=== PATIENT | female | born 1960 | race Caucasian/White ===

== ENCOUNTER → 2018-06-18 08:52 | Outpatient (CLI) | payer OTHER, SELFPAY | PROVIDERS: Family Provider Family Medicine; PCP Family Medicine; Visit Provider Family Medicine | DX: R00.2 Palpitations (principal) | CPT/HCPCS: 93225; 93226 ==

== ENCOUNTER 2018-12-23 14:16 | Outpatient (RCR) | payer OTHER, SELFPAY | END 2018-12-24 23:59 | LOC: NS 14:16 | PROVIDERS: Family Provider Family Medicine; PCP Family Medicine; Visit Provider Specialist | DX: E11.9 Type 2 diabetes mellitus without complications (principal); E66.8 Other obesity; Z68.42 Body mass index [BMI] 45.0-49.9, adult; Z71.3 Dietary counseling and surveillance | CPT/HCPCS: 97802 ==

== ENCOUNTER 2019-01-13 09:36 | Outpatient (RCR) | payer OTHER, SELFPAY ==
[2017-03-11 11:15] VITALS: BMI 40.7
== END 2019-01-24 23:59 ==
LOC: NS 09:36
PROVIDERS: Family Provider Family Medicine; PCP Family Medicine; Visit Provider Specialist
DX: E11.9 Type 2 diabetes mellitus without complications (principal); E66.8 Other obesity; Z68.42 Body mass index [BMI] 45.0-49.9, adult; Z71.3 Dietary counseling and surveillance
CPT/HCPCS: 97803

== ENCOUNTER 2019-02-10 13:55 | Outpatient (RCR) | payer OTHER, SELFPAY ==
[2017-03-11 11:15] VITALS: BMI 40.7
== END 2019-02-23 23:59 ==
LOC: NS 13:55
PROVIDERS: Family Provider Family Medicine; PCP Family Medicine; Visit Provider Specialist
DX: E11.9 Type 2 diabetes mellitus without complications (principal); E66.8 Other obesity; Z68.42 Body mass index [BMI] 45.0-49.9, adult; Z71.3 Dietary counseling and surveillance
CPT/HCPCS: 97803

== ENCOUNTER 2019-03-03 08:59 | Outpatient (RCR) | payer OTHER, SELFPAY ==
[2017-03-11 11:15] VITALS: BMI 40.7
== END 2019-03-26 23:59 ==
LOC: NS 08:59
PROVIDERS: Family Provider Family Medicine; PCP Family Medicine; Visit Provider Specialist
DX: E11.9 Type 2 diabetes mellitus without complications (principal); E66.8 Other obesity; Z68.42 Body mass index [BMI] 45.0-49.9, adult; Z71.3 Dietary counseling and surveillance
CPT/HCPCS: 97803

== ENCOUNTER 2019-04-07 12:32 | Emergency (ER) | payer OTHER, SELFPAY ==
[2019-04-07 12:34] VITALS: BP 161/88; PULSE 86; RESP 20; TEMP 37.1; O2SAT 90; BMI 43.6
--- NOTE | 2019-04-07 12:48 | EKG12_ITS ---
Test Reason : POST ARREST/CP Blood Pressure : / mmHG Vent. Rate : 083 BPM Atrial Rate : 083 BPM P-R Int : 146 ms QRS Dur : 096 ms QT Int : 426 ms P-R-T Axes : 053 016 064 degrees QTc Int : 500 ms Normal sinus rhythm Septal infarct , age undetermined Prolonged QT Abnormal ECG Confirmed by PILY MACHADO, SULEMAN ([id number]), scientific editor JEAN PAUL PALENCIA ([id number]) on 04/09/2019 9:01:00 AM Referred By: MARCIA/CECY Confirmed By:SULEMAN NASCIMENTO MD
--- NOTE | 2019-04-07 12:53 | ED.DCSUM_ITS ---
History of Present Illness Chief Complaint: Chest Pain Detail of Chief Complaint: Patient chief complaint is syncope not chest pain Informant: Patient Onset: Today Context: Sudden Onset Timing: Intermittent Quality: Patient got in line at the bank and passed out Location: [facility] Current Severity: Chest pain after compressions Maximum Severity: Chest soreness after compressions Worsened by: Chest compressions Relieved by: Nothing Associated Symptoms: Syncopal episode Narrative: Patient is a 4-year-old woman who had a syncopal episode in 2013 after coughing vigorously. She states she went to the bank. She was deciding whether to go to a cubicle or getting line. She went in line. She remembers things getting black becoming lightheaded and grabbing for a pole to prevent her from falling. Bystanders started CPR. Patient had spontaneous return of breathing and circulation. Her only present complaint is chest soreness. She denies shortness of breath, cough, fever or chills. She denies leg pain, swelling or or discoloration. She denies history of PE or DVT and has no risk factors. Prior similar symptoms: Yes - 2013 Recent Illness/Hospitalization: No Past Medical History - Allergies and Home Meds Allergies/Adverse Reactions: Allergies tetracycline Allergy (Verified 04/07/19 12:39) HEADACHE Iodinated Contrast- Oral and IV Dye [Iodinated Contrast Media - IV Dye] Adverse Reaction (Verified 04/07/19 12:39) Shortness of breath latex Adverse Reaction (Verified 04/07/19 12:39) Rash POWDER FROM THE GLOVES IS THE PROBLEM Primary Care Physician: Ervin Brush MD [Primary Care Provider] - Prior records reviewed: Yes Past Medical History: - - COPD and hypertension Surgical History: noncontributory Lives: Alone Smoking Status: Former smoker Alcohol: None Review of Systems General: Denies: Chills, Fever, Subjective, Sweats Eyes: Denies: Visual changes - bilaterally, Blurred Vision - bilaterally, Diplopia ENT: Denies: Bilateral ear pain, Rhinorrhea, Sore throat Cardiovascular: Reports: Chest pain - After CPR. Denies: Palpitations, Heart racing Respiratory: Denies: Dyspnea, Cough, Dyspnea on exertion, Orthopnea, Paroxysmal nocturnal dyspnea Gastrointestinal: Denies: Abdominal pain, Nausea, Vomiting, Diarrhea, Melena, Hematochezia Genitourinary: Denies: Dysuria, Hematuria, Frequency Musculoskeletal: Denies: Back pain, Extremity Pain Skin: Denies: Rash, Wounds Neurological: Denies: Headache, Weakness, Numbness Hematologic: Denies: Easy bruising, Easy bleeding Allergy: Denies: Uticaria, Swelling of the mouth Physical Exam Vital Signs/Narrative: Vital Signs Temp Pulse Resp BP Pulse Ox 04/07/19 12:34 98.8 F 86 20 H 161/88 H 90 Inital Vital Signs reviewed: Yes General: Well nourished, Well developed, No Acute Distress Head: Normocephalic, Atraumatic Eyes: Perrl, EOMI. Negative for: Pale conjunctiva, Scleral icterus ENT: Moist mucous membranes, No rhinorrhea, TM's clear Neck: Supple, Nontender, No lymphadenopathy Cardiovascular: Regular rate, Regular rhythm, No murmurs, Normal S1, Normal S2 Respiratory: No distress, CTA bilaterally, Chest nontender Abdomen: Soft, Nontender, Nondistended, Normal bowel sounds Back: Nontender, Normal Inspection Extremities: Nontender, No edema Skin: Normal color, No rash Neurological: Alert, Oriented x3, Cranial nerves II-XII grossly intact, Normal Strength, Normal Sensation Psychological: Normal affect, Normal Mood Diagnostic/Tx/Re-eval Laboratory Results 04/07/19 04/07/19 12:46 12:46 WBC 8.1 RBC 4.91 Hgb 13.4 Hct 41.7 MCV 84.9 MCH 27.3 MCHC 32.1 RDW 14.4 RDW Differential 44.0 H Plt Count 293 MPV 9.4 Sodium 138 Potassium 3.7 Chloride 104 Carbon Dioxide 30.0 Anion Gap 4 L BUN 24 H Creatinine 0.65 Estim Creat Clear Calc 82.82 Est GFR (MDRD) Af Amer 119 Est GFR (MDRD) Non-Af 99 BUN/Creatinine Ratio 36.9 H Glucose 105 Calcium 8.7 Troponin I < 0.015 - Rhythm Strip Rhythm Strip: Sinus Rhythm Rate: 77 Ectopy: None - EKG Initial EKG Interpretation: Sinus Rhythm - Ventricular rate is 83. Decreased anterior force. OH interval 146 ms. QRS durations 96 ms and is unremarkable. Acute T interval is prolonged. - Medical Decision Making Patient's history is suggestive of vasovagal syncopal episode. EKG was obtained and reveals a sinus rhythm ventricular rate of 83 with decreased anterior force. QT interval is prolonged. Suspect chest pain is secondary to CPR. In light of patient's history, physical findings and prior history she experienced a vasovagal syncopal episode. Will discharge to home. ED Disposition - Plan for ED Patient: Disposition: Home or Assisted Living Diagnosis: Vasovagal syncope Instructions: ED Syncope Vasovagal Referrals: Ervin Brush MD [Primary Care Provider] - As Needed
[2019-04-07 12:56] LABS: Hematocrit 41.7 % (37-47); Hemoglobin 13.4 g/dl (12.0-15.0); Mean Corp Hgb Conc 32.1 g/gl (32-36); Mean Corpuscular Hgb 27.3 pg (27.0-32.0); Mean Corpuscular Volume 84.9 fL (81-99); Mean Platelet Vol. 9.4 fl (6.2-12.0); Platelet Count 293 K/mm3 (150-450); RBC Distribution Width CV 14.4 % (11.6-14.6); Red Blood Count 4.91 M/mm3 (4.2-5.4); White Blood Count 8.1 K/mm3 (4.4-11.0)
[2019-04-07 12:57] LABS: Scan Indicated on CBC? Y/N NO
[2019-04-07 13:09] LABS: Anion Gap 4 (5-15); BUN 24 mg/dL (7-18); BUN/Creat Ratio 36.9 RATIO (10-20); Calcium,Total 8.7 mg/dL (8.5-10.1); Chloride 104 mmol/L (98-107); Creatinine, Serum 0.65 mg/dL (0.55-1.02); EST Glomerular Filtration Rate 99 mL/min (>60); Est Glom Filt Rate - Afr Amer 119 mL/min (>60); Estimated Creatinine Clearance 82.82 ml/min; Glucose 105 mg/dL (74-106); Potassium 3.7 mmol/L (3.5-5.1); Sodium Level 138 mmol/L (136-145)
[2019-04-07 14:32] VITALS: BP 138/63; PULSE 88; RESP 18; O2SAT 95
[2019-04-07 15:17] VITALS: BP 135/74; PULSE 82; RESP 14; O2SAT 94
[2019-04-07] MEDS: HYDROcodone Bitartrate/Apap 5/325 Tablet PO (16:43)
[2019-04-07 16:49] VITALS: BP 149/70; PULSE 68; RESP 18; O2SAT 99
== END 2019-04-07 16:50 | disposition home or self-care (01) ==
PROVIDERS: Emergency Provider Emergency Medicine; Family Provider Family Medicine; PCP Family Medicine
DX: R55 Syncope and collapse (principal); I10 Essential (primary) hypertension; J44.9 Chronic obstructive pulmonary disease, unspecified; Z79.899 Other long term (current) drug therapy; Z87.891 Personal history of nicotine dependence
CPT/HCPCS: 36415; 80048; 84484; 85027; 93005; 99285; J7030; A4216

== ENCOUNTER 2019-05-03 11:12 | Outpatient (RCR) | payer OTHER, SELFPAY ==
[2017-03-11 11:15] VITALS: BMI 40.7
[2019-05-03 09:26] VITALS: BMI 40.7
== END 2019-05-26 23:59 ==
LOC: NS 11:12
PROVIDERS: Family Provider Family Medicine; PCP Family Medicine; Visit Provider Specialist
DX: E11.9 Type 2 diabetes mellitus without complications (principal); E66.8 Other obesity; Z68.42 Body mass index [BMI] 45.0-49.9, adult; Z71.3 Dietary counseling and surveillance
CPT/HCPCS: 97803

== ENCOUNTER → 2019-05-03 | Outpatient (CLI) | payer OTHER, SELFPAY ==
[2019-05-03 09:26] VITALS: BMI 40.7
[2019-05-03 11:12] LABS: Absolute Lymphocyte Count 1.54 X10^3/ul (0.83-4.51); Absolute Neutrophil Count 3.9 X10^3/uL (2.0-7.7); Basophil# 0.03 X10^3/uL; Basophil% 0.5 % (0-1); Eosinophil# 0.23 X10^3/uL; Eosinophils% 3.8 % (0-5); Hematocrit 40.3 % (37-47); Hemoglobin 12.7 g/dl (12.0-15.0); Lymphocyte # 1.54 X10^3/ul (4.0); Lymphocyte % 25.4 % (19-41); Mean Corp Hgb Conc 31.5 g/gl (32-36); Mean Corpuscular Hgb 27.3 pg (27.0-32.0); Mean Corpuscular Volume 86.7 fL (81-99); Mean Platelet Vol. 9.1 fl (6.2-12.0); Monocyte# 0.38 X10^3/uL; Monocyte% 6.3 % (0-10); Neutrophil # 3.87 X10^3/uL (2.7-7.7); Neutrophil % 63.8 % (47-70); Platelet Count 209 K/mm3 (150-450); RBC Distribution Width CV 14.4 % (11.6-14.6); RBC Distribution Width SD 44.9 fl (35.1-43.9); Red Blood Count 4.65 M/mm3 (4.2-5.4); White Blood Count 6.1 K/mm3 (4.4-11.0)
[2019-05-03 11:13] LABS: POSITIVE COUNT NO; POSITIVE DIFFERENTIAL NO; POSITIVE MORPHOLOGY NO
[2019-05-05 12:08] LABS: Alternaria tenuis <0.10 kU/L (Class 0); Ash, White 0.12 kU/L (Class 0/I); Aspergillus fumigatus <0.10 kU/L (Class 0); Bermuda Grass 0.12 kU/L (Class 0/I); Birch <0.10 kU/L (Class 0); Black Walnut 0.13 kU/L (Class 0/I); Cat Hair / Dander,Stand <0.10 kU/L (Class 0); Cedar, Mountain <0.10 kU/L (Class 0); Cladosporium herbarum <0.10 kU/L (Class 0); Cottonwood 0.13 kU/L (Class 0/I); D farinae Mite <0.10 kU/L (Class 0); D pteronyssinus <0.10 kU/L (Class 0); Dog Epithelia <0.10 kU/L (Class 0); Elm, American White 0.14 kU/L (Class 0/I); Immunoglobulin E 52 IU/mL (6-495); Maple/Box Elder 0.12 kU/L (Class 0/I); Mulberry, White <0.10 kU/L (Class 0); Oak, White 0.12 kU/L (Class 0/I); Pecan <0.10 kU/L (Class 0); Penicillium Notatum <0.10 kU/L (Class 0); Pigweed, Rough 0.11 kU/L (Class 0/I); Ragweed, Short/Common 0.15 kU/L (Class 0/I); Russian Thistle 0.12 kU/L (Class 0/I); Sheep Sorrel 0.13 kU/L (Class 0/I); Sycamore, American 0.13 kU/L (Class 0/I); Timothy Grass 0.12 kU/L (Class 0/I)
[2019-05-05 16:56] LABS: Mouse Urine <0.10 kU/L (Class 0)
[2019-05-07 04:26] LABS: Aspirgillus flavus Negative (Neg:<1:1); Aspirgillus fumigatus Negative (Neg:<1:1); Aspirgillus niger Negative (Neg:<1:1)
[2019-05-10 12:51] LABS: Immunoglobulin E 53 IU/mL (6-495)
== END | disposition home or self-care (01) ==
LOC: PAVLAB 10:36
PROVIDERS: Family Provider Family Medicine; PCP Family Medicine; Referring Provider Internal Medicine Critical Care Medicine; Visit Provider Internal Medicine Critical Care Medicine
DX: R06.02 Shortness of breath (principal)
CPT/HCPCS: 36415; 82785; 85025; 86003; 86606

== ENCOUNTER → 2019-05-07 | Outpatient (CLI) | payer OTHER, SELFPAY ==
[2019-04-20 15:03] VITALS: BMI 39.6
[2019-05-03 09:26] VITALS: BMI 40.7
--- NOTE | 2019-05-07 13:51 | ECHOCS_ITS ---
Reason For Study: Dyspnea/SOB Procedure This was a 2D Doppler, Color Flow transthoracic echocardiogram. The study was technically difficult. Contrast injection was performed. Exam performed in department. Left Ventricle Moderate concentric left ventricular hypertrophy. Mildly dilated left ventricle. The estimated ejection fraction is 65 %. Stage 1 diastolic dysfunction. No regional wall motion abnormalities noted. Right Ventricle Normal size and thickness. Normal systolic function. Atria The left atrium is moderately enlarged. Normal right atrium. Normal atrial septum. Mitral Valve The mitral valve is structurally normal. No prolapse or stenosis seen. Mild (1+) mitral valve insufficiency. Tricuspid Valve Normal tricuspid valve. Unable to estimate RV systolic pressure due to insufficient tricuspid regurgitant envelope. Aortic Valve Trisinus/trileaflet aortic valve. Normal aortic valve. Pulmonic Valve Normal pulmonic valve. Great Vessels Normal aortic root. Normal arch. Normal inferior vena cava. Inferior vena cava collapse with sniff. Pericardium/Pleural No pericardial effusion. Medication 22 gauge I.V. with prn adaptor inserted into right arm. Diluted definity 4ml given slow IV push to enhance endocardial definition. Performed a rapid injection of agitated mix of 9 cc saline and 1cc air to assess for atrial septal defect. MMode/2D Measurements & Calculations LVIDd: 5.3 cm IVSd: 1.8 cm LAV(MOD-bp): 86.9 ml LVIDs: 3.8 cm LVPWd: 1.7 cm FS: 27.7 % LAV(MOD-bp) Indexed: 38.5 ml/m2 LAV(MOD-sp2): 71.1 ml LAV(MOD-sp4): 92.2 ml LA A4 area: 25.2 cm2 RA A4 area: 15.0 cm2 Time Measurements MV dec time: 0.20 sec Doppler Measurements & Calculations MV E max jose elias: 105.6 cm/sec Lat Peak E' Jose Elias: 5.0 cm/sec Med Peak E' Jose Elias: 6.3 cm/sec MV A max jose elias: 117.5 cm/sec E/E' lat: 21.2 E/E' med: 16.7 MV E/A: 0.90 MV V2 max: 121.3 cm/sec MV P1/2t max jose elias: 109.8 cm/sec Ao V2 max: 135.1 cm/sec MV max P.9 mmHg MV P1/2t: 101.6 msec Ao max P.3 mmHg MV V2 mean: 70.0 cm/sec Ao V2 mean: 90.0 cm/sec MV mean P.3 mmHg MV dec slope: 316.6 cm/sec2 Ao mean P.8 mmHg MV V2 VTI: 33.3 cm MVA(P1/2t): 2.2 cm2 Ao V2 VTI: 30.6 cm LV V1 max: 81.3 cm/sec PA V2 max: 100.2 cm/sec LV V1 max P.6 mmHg LV V1 mean P.2 mmHg LV V1 mean: 50.8 cm/sec LV V1 VTI: 18.5 cm Interpretation Summary Moderate concentric left ventricular hypertrophy. The estimated ejection fraction is 65 %. Stage 1 diastolic dysfunction. Mildly dilated left ventricle. The left atrium is moderately enlarged. Mild (1+) mitral valve insufficiency. Unable to estimate RV systolic pressure due to insufficient tricuspid regurgitant envelope. The study was technically difficult. There is no comparison study available. Contrast injection was performed. Ordering Physician: Shahram Garza Referring Physician: Shahram Garza Performed By: Josue Chamberlain RCS
== END | disposition home or self-care (01) ==
LOC: CVS 13:50
PROVIDERS: Family Provider Family Medicine; PCP Family Medicine; Referring Provider Internal Medicine Cardiovascular Disease; Visit Provider Internal Medicine Cardiovascular Disease
DX: R55 Syncope and collapse (principal); R94.31 Abnormal electrocardiogram [ECG] [EKG]; I49.3 Ventricular premature depolarization; I10 Essential (primary) hypertension; J45.40 Moderate persistent asthma, uncomplicated
CPT/HCPCS: 93306; Q9957; A4216; C8929

== ENCOUNTER → 2019-05-08 | Outpatient (CLI) | payer OTHER, SELFPAY ==
[2019-05-03 09:26] VITALS: BMI 40.7
[2019-05-08 11:23] LABS: AST(SGOT) 19 U/L (15-37); Alanine Aminotransfer ALT/SGPT 24 U/L (13-56); Albumin, Serum 3.6 g/dL (3.2-5.0); Alkaline Phosphatase 94 U/L (45-117); Cholesterol 197 mg/dL (200); Globulin 4.1 g/dL (2.2-4.2); High Density Lipoprotein 42 mg/dL; Protein, Total 7.7 g/dL (6.4-8.2); Triglycerides 90 mg/dL; Very Low Density Lipoprotein 18 mg/dL (5-40)
== END | disposition home or self-care (01) ==
LOC: LAB 10:11
PROVIDERS: Family Provider Family Medicine; PCP Family Medicine; Referring Provider Internal Medicine Cardiovascular Disease; Visit Provider Internal Medicine Cardiovascular Disease
DX: R55 Syncope and collapse (principal); R94.31 Abnormal electrocardiogram [ECG] [EKG]; I49.3 Ventricular premature depolarization; E78.5 Hyperlipidemia, unspecified; R73.03 Prediabetes
CPT/HCPCS: 36415; 80061; 80076

== ENCOUNTER → 2019-05-14 | Outpatient (CLI) | payer OTHER, SELFPAY ==
[2019-05-03 09:26] VITALS: BMI 40.7
--- NOTE | 2019-05-14 11:19 | PFTCOMP_ITS ---
COMPLETE PULMONARY FUNCTION TEST INTERPRETATION Brief HPI: Patient is a 58 year old female, currently under the care of Dr. Gant, who presents to [facility] for complete pulmonary function tests secondary to diagnosis of dyspnea. Respiratory therapist reports good effort and reproducible results. Interpretation: Forced expiration spirometry shows a severe large airways obstructive ventilatory defect with an FEV1 of 37% predicted. There is a significant bronchodilator response in FVC and FEV1 by strict ATS criteria. Spirograms are of good quality and plateau slowly, indicating slowly emptying areas of the lungs. The respiratory flow volume loop shows decreased expiratory flow rates at all lung volumes consistent with airway obstruction. Lung volumes by body plethysmography show a normal total lung capacity at 4.99 L, 91% predicted. FRC and RV are elevated out of proportion. Lung volume measurements are consistent with air-trapping. Diffusion capacity by carbon monoxide is decreased at 56% predicted. The airway resistance is elevated. No previous pulmonary function tests were available for review. Impression: Partially reversible very severe large airways obstructive ventilatory defect with symmetric reduction in diffusing capacity, resulting in air trapping and consistent with a diagnosis of asthma/COPD overlap syndrome
== END | disposition home or self-care (01) ==
LOC: PSN 06:59
PROVIDERS: Family Provider Family Medicine; PCP Family Medicine; Referring Provider Internal Medicine Critical Care Medicine; Visit Provider Internal Medicine Critical Care Medicine
DX: R06.02 Shortness of breath (principal)
CPT/HCPCS: 94060; 94726; 94729

== ENCOUNTER → 2019-05-17 | Outpatient (CLI) | payer OTHER, SELFPAY ==
[2019-04-20 15:03] VITALS: BMI 39.6
[2019-05-03 09:26] VITALS: BMI 40.7
--- NOTE | 2019-05-17 09:31 | STEWCON_ITS ---
Reason For Study: Dyspnea Stress Results Protocol: Modified Gerard Protocol Maximum Predicted HR: 160 bpm Target HR: 136 bpm % Maximum Predicted HR: 81 % Heart Stage Duration Rate BP Comment (mm:ss) (bpm) Baseline 84 130/72No Chest Pain; 3 ML Definity Given Modified Gerard Protocol Stage 0 3:00 118 146/70No Chest Pain; Mild Dyspnea Modified Gerard Protocol No Chest Pain; Moderate Dyspnea; Soft Stage 1/2 3:00 126 168/64Expiratory Wheezes Modified Gerard Protocol No Chest Pain; Moderate Dyspnea; Expiratory Stage 1 1:01 130 / Wheezes Recovery 92 122/76No Chest Pain; No Wheezes Stress Duration: 7:01 mm:ss Maximum Stress HR: 130 bpm METS: 4 Baseline Echocardiogram Findings The estimated ejection fraction is 65 %. Stress Echo Wall motion Data Resting WM Intermediate WM Stress WM Resting Wall Motion Wall Motion Stress No regional wall motion Mid-Anterior : Severely abnormalities noted. Hypokinetic. Mid-Lateral : Severely Hypokinetic. EKG Data The baseline ECG displays normal sinus rhythm. During stress, there were no ST or T wave changes noted to suggest ischemia. No clinical angina was noted. The maximum heart rate attained was 133 beats per minute. This was 83% of maximum predicted heart rate. Interpretation Summary The estimated ejection fraction is 65 %. Mid-Anterior : Severely Hypokinetic. Mid-Lateral : Severely Hypokinetic. Abnormal, adequate, treadmill echocardiogram. Positive for ischemia by echocardiographic criteria. No anginal symptoms noted however the patient did have dyspnea and expiratory wheezes which may be an anginal equivalent. Patient appeared to develop mid anterior and lateral hypokinesis at peak exercise. Appropriate blood pressure response to exercise. Below average exercise capacity for age. Final LVEF of 45%. Frequent PVCs and ventricular couplets during exercise and into recovery. Test terminated due to dyspnea and wheezing. Poor echo windows requiring Definity agent may affect the results of the imaging. No complications. The study was technically difficult. Contrast injection was performed. Ordering Physician: Shahram Garza Referring Physician: Mark Brush Performed By: Tamiko Bruno, ANKITA, RVT
[2019-05-17 13:37] VITALS: PULSE 100; PULSE 104; PULSE 109; PULSE 114; PULSE 93; PULSE 97; O2SAT 90; O2SAT 91; O2SAT 92; O2SAT 94
--- NOTE | 2019-05-17 14:56 | PCM.PSN.6M ---
PSN 6 Minute Walk Test - 6 Minute Walk Test 6 Minute Walk Test: 6 Minute Walk Test PSN:6-Minute Walk Test Start: 05/17/19 13:37 Freq: Status: Active Protocol: RESP.6MINW Document 05/17/19 13:37 EVIE (Rec: 05/17/19 13:40 EVIE [id number]) 6 Minute Walk Test Date Performed 05/17/19 Time Performed 12:00 Height 5 ft 7 in Weight: 120.202 kg Weight in Pounds 265.[address]: Shahram Garza Assistive device used: None Pre-test Oxygen Delivery Method Room Air Pulse Ox (%) 92 Pulse Rate (60-100 beats/min) 97 Dyspnea Tisha Scale (0-10) 0 Exertion Tisha Scale (6-20) 6 1st minute Oxygen Delivery Method Room Air Pulse Ox (%) 91 Pulse Rate (60-100 beats/min) 100 2nd minute Oxygen Delivery Method Room Air Pulse Ox (%) 91 Pulse Rate (60-100 beats/min) 104 H 3rd minute Oxygen Delivery Method Room Air Pulse Ox (%) 91 Pulse Rate (60-100 beats/min) 109 H Number of Rests Taken 1 4th minute Oxygen Delivery Method Room Air Pulse Ox (%) 92 Pulse Rate (60-100 beats/min) 114 H 5th minute Oxygen Delivery Method Room Air Pulse Ox (%) 91 Pulse Rate (60-100 beats/min) 109 H 6th minute Oxygen Delivery Method Room Air Pulse Ox (%) 90 Pulse Rate (60-100 beats/min) 114 H Dyspnea Tisha Scale (0-10) 3 Exertion Tisha Scale (6-20) 14 Post-test Oxygen Delivery Method Room Air Pulse Ox (%) 94 Pulse Rate (60-100 beats/min) 93 Full Laps Walked 12 Partial Lap, Number of Tiles Walked 10 Total Distance Walked (ft) 718 - Interpretation Interpretation: The patient was able to ambulate 718 feet over the course of 6 minutes on room air with one break. The patient did have a low baseline saturation of 92%, but oxygen rehana was noted at 90%. Patient did have significant tachycardia with a peak heart rate of 114 bpm during testing. These findings are consistent with a cardiopulmonary etiology for exercise limitation. - Recommendations Recommendations: No supplemental oxygen is indicated at this time. However, patient will need to be followed closely given level of desaturation.
== END | disposition home or self-care (01) ==
LOC: CVS 09:30
PROVIDERS: Family Provider Family Medicine; PCP Family Medicine; Referring Provider Internal Medicine Cardiovascular Disease; Visit Provider Internal Medicine Cardiovascular Disease
DX: R55 Syncope and collapse (principal); R94.31 Abnormal electrocardiogram [ECG] [EKG]; I49.3 Ventricular premature depolarization; I10 Essential (primary) hypertension
CPT/HCPCS: 93017; 93350; 94618; Q9957; A4216; C8928

== ENCOUNTER 2019-05-21 06:49 | Day surgery (SDC) | payer OTHER, SELFPAY ==
[2019-05-18 09:31] VITALS: BMI 40.7
--- NOTE | 2019-05-18 09:37 | RAD_ITS ---
STUDY: X-RAY CHEST REASON FOR EXAM: Female, 58 years old. Worsening shortness of breath TECHNIQUE: PA and lateral views of the chest. COMPARISON: 2015 FINDINGS: Lungs are expanded. Chronic interstitial changes again noted in both lung tatum. Stable right perihilar opacification. There is no demonstrated pleural abnormality. Normal size heart. Normal mediastinum and lamin. Normal visualized pulmonary arteries. Normal visualized aortic arch and descending thoracic aorta. There are diffuse degenerative changes of the visualized thoracic spine. Normal visualized ribs, clavicles, and shoulders. There is no demonstrated abnormality of the visualized soft tissue structures of the upper abdomen. RAD/Chest PA and Lateral IMPRESSION: Degenerative changes, as described above. No demonstrated acute cardiopulmonary process. No significant interval change Electronically Signed: Jone Canseco MD at 10:58 EDT , Service support ,
[2019-05-18 10:40] LABS: Hematocrit 41.1 % (37-47); Mean Corp Hgb Conc 31.6 g/dL (32-36); Mean Corpuscular Hgb 27.6 pg (27.0-32.0); Mean Corpuscular Volume 87.3 fL (81-99); Mean Platelet Vol. 9.5 fl (6.2-12.0); Platelet Count 251 K/mm3 (150-450); RBC Distribution Width CV 13.3 % (11.6-14.6); RBC Distribution Width SD 42.7 fl (35.1-43.9); Red Blood Count 4.71 M/mm3 (4.2-5.4); White Blood Count 6.6 K/mm3 (4.4-11.0)
[2019-05-18 10:52] LABS: Prothrombin Time (Protime)PT. 12.8 SECONDS (11.7-14.9)
[2019-05-18 10:53] LABS: Partial Thromboplast Time 27.4 Seconds (24.1-36.2)
[2019-05-18 10:59] LABS: Anion Gap 2 (5-15); BUN 19 mg/dL (7-18); BUN/Creat Ratio 28.4 RATIO (10-20); Calcium,Total 8.7 mg/dL (8.5-10.1); Chloride 102 mmol/L (98-107); Creatinine, Serum 0.67 mg/dL (0.55-1.02); EST Glomerular Filtration Rate 95 mL/min (>60); Est Glom Filt Rate - Afr Amer 115 mL/min (>60); Glucose 96 mg/dL (74-106); Potassium 3.5 mmol/L (3.5-5.1); Sodium Level 140 mmol/L (136-145)
[2019-05-21 07:33] VITALS: BMI 41.4
--- NOTE | 2019-05-21 09:35 | CL.D_ITS ---
Patient Name: MATTHEW LOZADA Study Date: 05/21/2019 Performing: Shahram Garza MD Ht: 66.92 inches 170 cm : 1960 Wt: 264.55 lbs 120 kg Age: 58 Gender: female BSA: 2.28 PROCEDURE(S) PERFORMED UV92-NRI/LHC/COR/LV CLINICAL PROFILE AND INDICATIONS Indications: Suspected CAD, LV Dysfunction Heart Failure: NYHA Class: 1, Newly Diagnosed: Yes, Heart Failure Type: Systolic Stress/Imaging Date: 05/17/2019Stress Echocardiogram: Positive Low Risk Angina Classification Anginal Classification w/in 2 Weeks: No symptoms CAD Presentations: Other: Dyspnea on exertion Comorbidities/Risk Factors: Hypertension Dyslipidemia Diabetes Mellitus: Diabetes Therapy: Oral CONCLUSIONS Global LV systolic dysfunction- Mild LVEF: by LV gram 50 % Non obstructive coronary arteries RECOMMENDATIONS Risk factor modification Management as per referring Pepper Picker D/c plavix, start coreg 3.125mg po bid. Manual sheath removal DESCRIPTION OF PROCEDURE The patient arrived to the procedure lab. The risks and benefits of the procedure as well as a full d escription of our services here and current unavailability of surgical backup were fully explained to the patient and/or their significant other prior to the catheterization. The Timeout was completed, verifying the correct patient and procedure. The patient's procedural site was prepped and draped in the usual fashion. Local anesthetic was given subcutaneously to right groin region with Lidocaine 2%. Using a modified Seldinger technique, arterial access was obtained via the right femoral artery, a 4 Fr sheath was inserted Venous access was obtained via the left femoral vein, a 7Fr sheath was inserte d. A 7Fr thermal dilution catheter was inserted and right heart pressures were recorded, it was then advanced to PA position for cardiac outputs. Thermal dilution cardiac outputs were then recorded. O2 saturations were then obtained. Left Ventriculography was performed in MOTA projection using a 4 Fr. Pigtail catheter. The Thermal dilution catheter was then removed. LV to AO pullback pre ssures were then recorded. Left Coronary Artery selective angiography was performed in multiple views using a 4 Fr. JL5 catheter. Right Coronary Artery selective angiography was then performed in multip le views using a 4 Fr. 3DRC catheter.The arterial sheath was pulled and manual compression applied un til hemostasis is achieved. CORONARY ANGIOGRAPHY DOMINANCE: Right Dominant LEFT HEART ASSESSMENT Left Ventricular Ejection Fraction: by LV Gram 50 % Global Hypokinesis - Mild Depressed Left Ventricular systolic function LVEDP: 17 mmHg RIGHT HEART ASSESSMENT Thermal CO: 6.01 Thermal CI: 2.64 Renetta CO: 7.46 Renetta CI: 3.27 PW: 18 16 PA: 49/11 31 RV: 39/6 11 RA: 1010 6 PVR: 200 SVR: 1411 Right Heart pressures - elevated Pulmonary Hypertension Moderate LEFT MAIN: Angiographically normal LEFT ANTERIOR DESCENDING ARTERY: PROX LAD: Mild calcification, Mild luminal irregularities less than 30% CIRCUMFLEX ARTERY: Angiographically normal RIGHT CORONARY ARTERY: Angiographically normal COMPLICATIONS No Complications PROCEDURE MEDICATIONS Versed 1 mg IV Versed 1 mg IV Benadryl 25 mg IV @ 05/21/2019 08:33:31 Solu-cortef 100 mg IV 05/21/2019 08:33:38 SUMMARY OF HEMODYNAMIC DATA Time AIR REST ECG 07:37:12 RA 1010 (6) SV 09:09:24 RV 39/6, 11 09:09:40 PW (16) PV 09:10:07 PA 49/11 (31) PA 09:10:21 LV 157/1, 18 09:15:49 LV 148/-3, 17 09:15:56 LV 156/0, 19 09:16:22 PW (20) 09:16:22 LV 153/-2, 18 09:16:47 RV 53/7, 12 09:16:47 LV 163/0, 27 09:18:10 LVp 161/-2, 24 09:18:15 AOp 159/85 (116) 09:18:20 AO 153/81 (112) SA 09:18:24 Type SV CO (l/m) CI (l/m/ HR Time AIR REST Thermal 78.10 6.01 2.64 77 07:37:12 Renetta 96.90 7.46 3.27 77 07:37:12 Label % O2 Pres/Loc Time AIR REST PA 69 PA 09:33:49 AO 92 PV 09:33:53 Signed By Shahram Garza MD On 05/21/2019 09:34:49 Shahram Garza MD
[2019-05-21 10:10] LABS: Blood Gas Specimen Type VEN; VBG BASE EXCESS 4 mmol/L (-1.0-3.5); VBG Bicarbonate 29 mmol/L (22-26); VBG Oxygen Content 31 mmol/L (23-33); VBG PO2 39 mmHg (25-40); VBG SO2 71 % (50-70); VBG pCO2 49.5 mmHg (41-51); VBG pH 7.38 (7.32-7.42)
[2019-05-21 10:10] LABS: Blood Gas Specimen Type VEN; VBG BASE EXCESS 5 mmol/L (-1.0-3.5); VBG Bicarbonate 30 mmol/L (22-26); VBG Oxygen Content 32 mmol/L (23-33); VBG PO2 36 mmHg (25-40); VBG SO2 66 % (50-70); VBG pH 7.38 (7.32-7.42)
[2019-05-21 10:11] LABS: Base Excess 5 mmol/L (-2 to +2); Bicarbonate 29.3 mmol/L (22-26); Blood Gas Specimen Type ART; PO2 65 mmHG (75-100); SO2 92 % (95-99); Total Carbon Dioxide 31 mmol/L; pCO2 46.2 mmHg (35-45); pH 7.41 (7.35-7.45)
== END 2019-05-21 14:15 | disposition home or self-care (01) ==
LOC: CLSP 06:50
PROVIDERS: Family Provider Family Medicine; PCP Family Medicine; Referring Provider Internal Medicine Cardiovascular Disease; Visit Provider Internal Medicine Cardiovascular Disease
DX: R55 Syncope and collapse (principal); E78.5 Hyperlipidemia, unspecified; R94.31 Abnormal electrocardiogram [ECG] [EKG]; G47.10 Hypersomnia, unspecified; J45.40 Moderate persistent asthma, uncomplicated; E66.01 Morbid (severe) obesity due to excess calories; Z68.39 Body mass index [BMI] 39.0-39.9, adult; E11.9 Type 2 diabetes mellitus without complications; I10 Essential (primary) hypertension; I49.3 Ventricular premature depolarization; M16.0 Bilateral primary osteoarthritis of hip; H40.9 Unspecified glaucoma; Z79.84 Long term (current) use of oral hypoglycemic drugs; Z79.82 Long term (current) use of aspirin; Z79.899 Other long term (current) drug therapy; Z87.891 Personal history of nicotine dependence
CPT/HCPCS: 36415; 71046; 80048; 82803; 85027; 85610; 85730; 93460; 99152; 99153; J7040; Q9967; C1751; C1769; C1894

== ENCOUNTER → 2019-05-31 12:14 | Outpatient (CLI) | payer OTHER, SELFPAY ==
[2019-05-31 11:19] VITALS: BMI 42.1
--- NOTE | 2019-05-31 12:17 | ADUL_ITS ---
Reason For Study: R/O pseudoaneurysm S/P heart catherization Right Velocities Common Femoral Artery, mid = 86.8 cm./sec. Ext. Iliac Artery, dist = 140.4 cm./sec. Supf Femoral Artery, prox = 83.4 cm./sec. Profunda Femoral Artery = 51.6 cm./sec. RT CFV & FV are compressible. NO Evidence of pseudoaneurysm or DVT in vessels imaged. Interpretation Summary No evidence for fistula or pseudo aneurysm right common femoral artery. Ordering Physician: Destin Tapia Referring Physician: Mark Brush Performed By: Tamiko Bruno, ANKITA, RVT
== END ==
PROVIDERS: Family Provider Family Medicine; PCP Family Medicine; Referring Provider Nurse Practitioner Family; Visit Provider Nurse Practitioner Family
DX: S75.009A Unspecified injury of femoral artery, unspecified leg, initial encounter (principal)
CPT/HCPCS: 93926

== ENCOUNTER → 2019-06-01 | Outpatient (CLI) | payer OTHER, SELFPAY ==
[2019-05-03 09:26] VITALS: BMI 40.7
== END | disposition home or self-care (01) ==
LOC: SL 22:59
PROVIDERS: Family Provider Family Medicine; PCP Family Medicine; Referring Provider Internal Medicine Critical Care Medicine; Visit Provider Internal Medicine Critical Care Medicine
DX: G47.10 Hypersomnia, unspecified (principal); R06.83 Snoring
CPT/HCPCS: 95811

== ENCOUNTER 2019-06-16 11:00 | Outpatient (RCR) | payer OTHER, SELFPAY ==
[2019-05-31 11:19] VITALS: BMI 42.1
== END 2019-06-26 23:59 ==
LOC: NS 11:00
PROVIDERS: Family Provider Family Medicine; PCP Family Medicine; Visit Provider Specialist
DX: E11.9 Type 2 diabetes mellitus without complications (principal); E66.8 Other obesity; Z68.42 Body mass index [BMI] 45.0-49.9, adult; Z71.3 Dietary counseling and surveillance
CPT/HCPCS: 97803

== ENCOUNTER → 2019-06-16 | Outpatient (CLI) | payer OTHER, SELFPAY ==
[2019-05-31 11:19] VITALS: BMI 42.1
[2019-06-16 10:36] LABS: Absolute Lymphocyte Count 1.55 X10^3/uL (0.83-4.51); Absolute Neutrophil Count 3.9 X10^3/uL (2.0-7.7); Basophil# 0.07 X10^3/uL; Basophil% 1.1 % (0-1); Eosinophil# 0.23 X10^3/uL; Eosinophils% 3.7 % (0-5); Hematocrit 42.8 % (37-47); Hemoglobin 13.4 g/dL (12.0-15.0); Lymphocyte # 1.55 X10^3/ul (4.0); Lymphocyte % 24.8 % (19-41); Mean Corp Hgb Conc 31.3 g/dL (32-36); Mean Corpuscular Hgb 27.7 pg (27.0-32.0); Mean Corpuscular Volume 88.4 fL (81-99); Mean Platelet Vol. 9.3 fl (6.2-12.0); Monocyte# 0.49 X10^3/uL; Monocyte% 7.8 % (0-10); NRBC Flagged by Analyzer 0 % (0-5); Neutrophil # 3.89 X10^3/uL (2.7-7.7); Neutrophil % 62.3 % (47-70); Platelet Count 253 K/mm3 (150-450); RBC Distribution Width CV 13.1 % (11.6-14.6); RBC Distribution Width SD 42.6 fl (35.1-43.9); Red Blood Count 4.84 M/mm3 (4.2-5.4); White Blood Count 6.3 K/mm3 (4.4-11.0)
[2019-06-19 14:07] LABS: Alternaria alternata <0.10 kU/L (Class 0); Bluegrass, Kentucky <0.10 kU/L (Class 0); Cat Hair/Dander, Standard <0.10 kU/L (Class 0); D farinae Mite <0.10 kU/L (Class 0); D pteronyssinus <0.10 kU/L (Class 0); Dog Epithelia <0.10 kU/L (Class 0); Oak, White 0.11 kU/L (Class 0/I); Plantain, English 0.13 kU/L (Class 0/I); Ragweed, Short/Common 0.11 kU/L (Class 0/I)
[2019-06-19 20:07] LABS: Aspirgillus flavus Negative (Neg:<1:1); Aspirgillus fumigatus Negative (Neg:<1:1); Aspirgillus niger Negative (Neg:<1:1)
[2019-06-21 12:59] LABS: Mouse Urine <0.10 kU/L (Class 0)
[2019-06-21 13:19] LABS: Immunoglobulin E 51 IU/mL (6-495)
== END | disposition home or self-care (01) ==
PROVIDERS: Family Provider Family Medicine; PCP Family Medicine; Referring Provider Nurse Practitioner Acute Care; Visit Provider Nurse Practitioner Acute Care
DX: J45.40 Moderate persistent asthma, uncomplicated (principal)
CPT/HCPCS: 36415; 82785; 85025; 86003; 86606

== ENCOUNTER → 2019-07-06 09:00 | Outpatient (CLI) | payer OTHER, SELFPAY ==
[2019-05-31 11:19] VITALS: BMI 42.1
== END ==
PROVIDERS: Family Provider Family Medicine; PCP Family Medicine; Referring Provider Nurse Practitioner Acute Care; Visit Provider Nurse Practitioner Acute Care
DX: G47.33 Obstructive sleep apnea (adult) (pediatric) (principal)

== ENCOUNTER → 2019-08-10 13:00 | Outpatient (CLI) | payer OTHER, SELFPAY ==
[2019-07-15 13:36] VITALS: BMI 43.7
== END ==
PROVIDERS: Family Provider Family Medicine; PCP Family Medicine; Referring Provider Nurse Practitioner Acute Care; Visit Provider Nurse Practitioner Acute Care
DX: G47.30 Sleep apnea, unspecified (principal)
CPT/HCPCS: 98960; G0463

== ENCOUNTER 2019-08-19 08:00 | Outpatient (RCR) | payer OTHER, SELFPAY ==
[2019-05-31 11:19] VITALS: BMI 42.1
== END 2019-08-26 23:59 ==
LOC: NS 08:00
PROVIDERS: Family Provider Family Medicine; PCP Family Medicine; Visit Provider Specialist
DX: Z71.3 Dietary counseling and surveillance (principal); E11.9 Type 2 diabetes mellitus without complications; E66.8 Other obesity; Z68.42 Body mass index [BMI] 45.0-49.9, adult
CPT/HCPCS: 97803

== ENCOUNTER 2019-08-26 07:47 | Day surgery (SDC) | payer OTHER, SELFPAY ==
[2019-07-15 13:36] VITALS: BMI 43.7
[2019-08-06 09:35] VITALS: BMI 43.6
--- NOTE | 2019-08-16 09:12 | PCM.HP.BLA ---
History and Physical Date of Admission: 08/26/19 Pre-Op History and Physical ? HPI: The patient is a 58 year old female presenting for pre-operative visit. She is scheduled for?hysteroscopy D&C and endometrial polyp resection, for?Postmenopausal bleeding on?08/26/19. ??Procedure discussed along with risks, benefits and complications. ?Other alternatives discussed for management. Consent form signed??Yes.? PAST MEDICAL HISTORY Diagnosis Date ? Acute bronchitis ? ? Anxiety state, unspecified ? ? Depression ? ? Glaucoma ? ? Dr. Marques ? Obesity, unspecified ? ? Osteoarthritis ? ? hips, seeing Dr. Marks ? Prediabetes ? ? Retinal vascular occlusion, unspecified ? ? right ? Unspecified asthma, with exacerbation ? Unspecified essential hypertension ? ? Vasovagal syncope ? ? with coughing ? ? PAST SURGICAL HISTORY Procedure Laterality Date ? HEMORRHOID;BAND LIGAT, SNGL/MUL ? ? ? Hemorrhoidectomy ? 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 ? ? Mirena/removed 03/27/11 ? THYROIDECTOMY ? ? ? thyroid not removed, cyst removed ? TOTAL HIP REPLACEMENT Left 2015 ? ? Current Outpatient Medications Medication Sig Dispense Refill ? fluticasone (FLONASE) 50 mcg/actuation nasal spray Use 2 Sprays in each nostril once daily. Rinse mouth after use. 16 g 3 ? clotrimazole-betamethasone (LOTRISONE) cream Apply 1 application to affected area twice daily. 15 g 2 ? carvedilol (COREG) 3.125 mg tablet 3.125 mg. ? ? ? budesonide/formoterol fumarate (SYMBICORT INHALATION) Inhale 2 Puffs as instructed twice daily. ? ? ? escitalopram oxalate (LEXAPRO) 10 mg tablet Take 1 tablet by mouth once daily. 90 tablet 1 ? albuterol (PROVENTIL) 2.5 mg /3 mL (0.083 %) nebulizer solution USE 1 VIAL IN NEBULIZER EVERY 4 HOURS OVER A PERIOD OF 5-15 MINUTES NEEDED FOR WHEEZING/SHORTNESS OF BREATH 60 Vial 6 ? PROAIR HFA 90 mcg/actuation inhaler Inhale 2 Puffs as instructed every 4 hours as needed. For wheezing/shortness of breath. 1 Inhaler 3 ? blood sugar diagnostic (BLOOD GLUCOSE TEST) test strip Test blood sugar(s) 1 times daily. ?Dx: Prediabetic R73.03 Insulin: No 50 Strip 11 ? Lancets lancets Test blood sugar(s) 1 times daily. ?Dx: 73.03 Prediabetes ?Insulin: No 100 Each 11 ? naproxen (NAPROSYN) 500 mg tablet Take 1 tablet by mouth twice daily as needed (for pain/inflammation). Take with food. 60 tablet 0 ? losartan-hydrochlorothiazide (HYZAAR) 100-25 mg per tablet Take 1 tablet by mouth once daily. 90 tablet 3 ? Nebulizer 1 Device every 4 hours as needed. NEBULIZER FOR HOME USE. ?DX: J45.40 1 Device 0 ? gabapentin (NEURONTIN) 100 mg capsule Take 1 capsule by mouth three times daily for 30 days. 90 capsule 0 ? albuterol (PROVENTIL) 2.5 mg /3 mL (0.083 %) nebulizer solution Use 3 mL via nebulizer one time only for 1 dose. Use over 5-15minutes. 3 mL 0 ? metFORMIN (GLUCOPHAGE) 500 mg tablet Take 1 tablet by mouth daily with breakfast. . 30 tablet 5 ? blood sugar diagnostic (zeroboundTOUCH ULTRA TEST) test strip Test blood sugar(s) 1 daily. ?Dx: 250.00. Insulin: No 50 Strip 11 ? MULTIVITAMIN TAB Take one(1) tablet every other day. 0 0 No current facility-administered medications for this visit.? ? ALLERGIES:?Food Allergies [Other]; Lipitor [Atorvastatin Calcium]; Powder In Latex Gloves [Other]; Tetracycline ? PERSONAL HISTORY:?Social History ??Socioeconomic History ?Marital status: ?Spouse name: karolyn ?Number of children: 1 ?Years of education: 12 ?Highest education level: Not on file ??Occupational History ?Employer: [employer] ??Social Needs ?Financial resource strain: Not on file ?Food insecurity: ?Worry: Not on file ?Inability: Not on file ?Transportation needs: ?Medical: Not on file ?Non-medical: Not on file ??Tobacco Use ?Smoking status: Former Smoker ?Packs/day: 1.50 ?Years: 10.00 ?Pack years: 15 ?Types: Cigarettes ?Quit date: 10/27/1987 ?Years since quittin.8 ?Smokeless tobacco: Never Used ??Substance and Sexual Activity ?Alcohol use: Yes ?Comment: rare ?Drug use: No ?Sexual activity: Not Currently ?Partners: Male ??Lifestyle ?Physical activity: ?Days per week: Not on file ?Minutes per session: Not on file ?Stress: Not on file ??Relationships ?Social connections: ?Talks on phone: Not on file ?Gets together: Not on file ?Attends amish service: Not on file ?Active member of club or organization: Not on file ?Attends meetings of clubs or organizations: Not on file ?Relationship status: Not on file ?Intimate partner violence: ?Fear of current or ex partner: Not on file ?Emotionally abused: Not on file ?Physically abused: Not on file ?Forced sexual activity: Not on file ??Other Topics ?Concerns: ?Not on file ??Social History Narrative ?, lung Ca 2006 ?21 son ?Works at [employer], 33 yr ?? ? FAMILY HISTORY:? FAMILY HISTORY Problem Relation Age of Onset ? Diabetes Mother ? ? Hypertension Mother ? ? Coronary Artery Disease Father ? ? Diabetes Father ? ? Cancer Maternal Grandmother ?cervical or ovarian ? Asthma Paternal Uncle ? ? REVIEW OF SYMPTOMS: GENERAL: denies fevers or chills ENDOCRINOLOGY: has not been on steroids Cardiology : denies palpitations or chest pain Respiratory: denies SOB or cough Hematology: denies history of prolonged bleeding or easy bruising or VTE Allergy: Denies history of personal or family history of allergy to anesthesia ? ? PHYSICAL EXAMINATION: ? VITALS:?Last menstrual period 12/12/2008. ? GENERAL:??The patient is well nourished, well hydrated in no acute distress. ?, The patient is oriented to time, place, and person. NECK:?Supple. No lynphadenopathy, normal thyroid, no thyromegaly. LUNGS:?Clear to auscultation bilaterally. no wheezes, rhonchi or rales HEART:?Regular rate and rhythm, Normal heart sounds and No murmurs or gallops ? IMPRESSION:?Postmenopausal bleeding/fluid in endoemtrial cavity/stenotic cervix ? PLAN:???The risks/benefits/alternatives and personal involved for the planned?hsytereroscopy D&C?were reviewed with the patient. Her questions were answered to her satisfaction and she desires to proceed. ?Consent was signed. ?I reviewed with her postop instructions and expectations. ? ? I have reviewed and updated past medical and surgical history, medications and allergies? Yu Negron M.D.
[2019-08-26 08:16] VITALS: BP 135/41; PULSE 69; RESP 16; TEMP 36.5; O2SAT 96; BMI 42.5
[2019-08-26 08:22] LABS: Hematocrit 41.9 % (37-47); Hemoglobin 13.2 g/dL (12.0-15.0); Mean Corp Hgb Conc 31.5 g/dL (32-36); Mean Corpuscular Hgb 27.2 pg (27.0-32.0); Mean Corpuscular Volume 86.2 fL (81-99); Mean Platelet Vol. 9.1 fl (6.2-12.0); Platelet Count 258 K/mm3 (150-450); RBC Distribution Width CV 13.1 % (11.6-14.6); Red Blood Count 4.86 M/mm3 (4.2-5.4)
[2019-08-26] MEDS: Lactated Ringers 1,000 ML 100 ML IV (08:31)
[2019-08-26 08:41] LABS: Bedside Glucose 124 mg/dL (70-110)
--- NOTE | 2019-08-26 09:40 | EMB_PTH ---
PATIENT: MATTHEW LOZADA LOC: [facility] [place] U#:[id number] AGE/SX: 58/F ROOM: RE08/26/[address]: Dr. Yu Negron MD : 1960 BED: DIS: 08/26/2019 SPEC #: [id number] RECD: 08/26/19 13:00 STATUS: ISA LYNNETTE #: [id number] PIPPA: 08/26/19 09:[address]: Yu Negron DEPT: SURGICAL PATHOLOGY RECD BY: Anthony Foley ENTERED: 08/26/19 13:30 SP TYPE: ENDOM BX/C FERNANDO DR: Dr. Ervin Brush MD Tissues: Endometrium, NOS Procedures: Surgery Specimen Level IV HEADER OPERATION: Hysteroscopy, dilation and curettage, polypectomy PRE-OP DIAGNOSIS: Postmenopausal bleeding; fluid in endometrial cavity; stenotic cervix TISSUE SUBMITTED: Endometrial curettings MICROSCOPIC DIAGNOSIS Endometrium, curettings: Polypoid fragments of lower uterine endometrium with benign cystic change. Strips of benign superficial squamous mucosa. Rare strips of endocervix with focal squamous metaplasia. AM:yadiel 08/27/19 MICROSCOPIC DESCRIPTION Slides are reviewed. GROSS DESCRIPTION Received in fixative is one container labeled with the patient's name and designated endometrial curettings. The specimen consists of multiple irregular fragments of pink-buck soft tissue that in aggregate measure 2.3 x 1.3 x 0.1 cm. The specimen is totally submitted in one cassette. / AM:yadiel 08/26/19 TC:5 CPT: 09310
--- NOTE | 2019-08-26 10:04 | DCINST_ITS ---
Discharge Diet: No Restrictions Discharge Activity: Return to Normal Activity, May Shower, May Take a Tub Bath - in 2 weeks. Call your doctor if your incision/area has: Sudden Increased Bleeding, Foul Smelling Discharge Call your doctor if you observe: Using more than one pad per hour - for 2 hrs in a row Allergies/Adverse Reactions: Allergies tetracycline Allergy (Verified 08/26/19 08:14) HEADACHE verapamil Adverse Reaction (Intermediate, Verified 08/26/19 08:14) constipation atorvastatin [From Lipitor] Adverse Reaction (Unknown, Verified 08/26/19 08:14) Unknown Iodinated Contrast Media [Iodinated Contrast Media - IV Dye] Adverse Reaction (Verified 08/26/19 08:14) Shortness of breath latex Adverse Reaction (Verified 08/26/19 08:14) Rash POWDER FROM THE GLOVES IS THE PROBLEM Medications to take at Discharge Albuterol Sulfate [Proair Hfa] 2 puff INHALATION Q4H PRN PRN 10/29/13 Latanoprost 1 drp OPHTHALMIC (EYE) QHS 10/29/13 Fluticasone Propionate [Flonase Allergy Relief] 2 spray NS DAILY 01/15/16 naproxen 500 mg tablet 500 mg PO Q12H PRN tab 04/14/19 carvedilol 3.125 mg tablet 3.125 mg PO BID #60 tab 05/21/19 losartan 100 mg-hydrochlorothiazide 25 mg tablet 1 tab PO DAILY #90 tab 06/04/19 albuterol sulfate 2.5 mg/3 mL (0.083 %) solution for nebulization 2.5 mg CONTINUOUS NEBULIZATION BID PRN PRN #180 ml 07/15/19 Budesonide/Formoterol 160/4.5 [Symbicort] 2 puff INHALATION BID 08/19/19 Montelukast [Singulair] 10 mg PO QHS 08/19/19 Primary Care Physician: Ervin Brush MD [Primary Care Provider] - Test Results: Test results from this visit will be discussed in further detail at your follow- up appointment, if applicable. Please Follow Up With: Yu Negron MD - [phone] When: as needed, we will call with pathology
--- NOTE | 2019-08-26 10:06 | OP.PCM_ITS ---
Report of Operation Date of Procedure: 08/26/19 Pre-Operative Diagnosis: PMB, endometrial polyp Post-Operative Diagnosis: same Surgery/Procedure Performed:: hysteroscopy D&C Description of Surgical Findings:: Atrophic endometrium, small polypoid appearing lesion in the right upper fundus. Normal-appearing cervix and vagina. lithograph press operator tinware: aby carrillo - [phone] Type of Anesthesia:: MAC/Supplemental/Local Anesthesiologist: Daron Kitchen Special Medications: none Specimen's removed: endometrial curettings Drains: none Estimated Blood Loss (mL): 10 Fluids Replaced: 400 Description of Procedure: The patient was taken to the OR where she was prepped and draped in dorsal lithotomy position. The weighted speculum was placed in the vagina and the anterior lip of the cervix was grasped with a single-tooth tenaculum. The cervix was dilated serially with Hegar dilators. The 5mm hysteroscope was placed into the uterine cavity and the above findings were noted. Bilateral tubal ostia were identified. The hysteroscope was removed. A gentle sharp curettage was done of the uterine cavity. Small polypoid lesion in the right cornual area was still present. I then used a hysteroscopic grasper to remove it at its base. It was placed with the endometrial curettings and sent to pathology. The instruments were removed from the vagina. The specimen was handed off and sent to pathology. All sponge and needle counts were correct. Vaginal sweep was performed by me. The patient was awakened and taken to the recovery room in stable condition. Hysteroscopic ins: 200cc normal saline Hysteroscopic outs:150cc Findings: Endometrial cavity: Atrophic, pale, small polypoid appearing lesion in the right cornual area Cervix: Normal Vagina: Normal Grafts/Implants Used: none - Complications none - Admit VTE Documentation VTE Present on Admission: No VTE Mechan Device Prophylaxis: SCD's VTE Pharm Prophylaxis ordered?: No Reason prophylaxis not ordered:: Procedure Not Indicated
[2019-08-26 10:50] VITALS: BP 135/41; BP 173/86; PULSE 81; RESP 16; TEMP 36.4; O2SAT 97
[2019-08-26 11:00] VITALS: BP 135/41; BP 143/65; PULSE 75; RESP 16; O2SAT 94
[2019-08-26 11:04] VITALS: BP 135/41; BP 137/66; PULSE 72; RESP 16; O2SAT 96
[2019-08-26] MEDS: HYDROcodone Bitartrate/Apap 5/325 Tablet PO (11:47)
[2019-08-26 14:25] VITALS: BP 135/41; BP 135/83; PULSE 77; RESP 16; TEMP 36.4; O2SAT 98
== END 2019-08-26 14:37 | disposition home or self-care (01) ==
LOC: SDC 07:50 → AC 07:52
PROVIDERS: Family Provider Family Medicine; PCP Family Medicine; Referring Provider Obstetrics & Gynecology; Visit Provider Obstetrics & Gynecology
PROC: 0UB98ZZ Excision of Uterus, Via Natural or Artificial Opening Endoscopic (ICD-10-PCS; CPT 58558; principal; 2019-08-26 09:30)
DX: N84.0 Polyp of corpus uteri (principal); H40.9 Unspecified glaucoma; E66.9 Obesity, unspecified; M19.90 Unspecified osteoarthritis, unspecified site; J44.9 Chronic obstructive pulmonary disease, unspecified; I10 Essential (primary) hypertension; G47.30 Sleep apnea, unspecified; G25.81 Restless legs syndrome; E11.9 Type 2 diabetes mellitus without complications; Z87.442 Personal history of urinary calculi; Z78.0 Asymptomatic menopausal state; Z79.899 Other long term (current) drug therapy; Z87.891 Personal history of nicotine dependence
CPT/HCPCS: 00952; 58558; 36415; 82962; 85027; 88305; J7120; J2405

== ENCOUNTER 2019-09-08 15:35 | Outpatient (RCR) | payer OTHER, SELFPAY | END 2019-09-08 23:59 | disposition home or self-care (01) | LOC: NS 15:35 | PROVIDERS: Family Provider Family Medicine; PCP Family Medicine; Visit Provider Specialist | DX: Z71.3 Dietary counseling and surveillance (principal); E11.9 Type 2 diabetes mellitus without complications; E66.8 Other obesity; Z68.42 Body mass index [BMI] 45.0-49.9, adult | CPT/HCPCS: 97803 ==

== ENCOUNTER 2019-10-06 06:37 | Inpatient (IN) | payer OTHER, SELFPAY ==
[2019-08-06 09:35] VITALS: BMI 43.6
[2019-09-17 11:10] VITALS: BP 152/78; PULSE 66; RESP 16; TEMP 36.6; O2SAT 95; BMI 44.0
[2019-09-17 11:42] LABS: Absolute Lymphocyte Count 1.75 X10^3/uL (0.83-4.51); Absolute Neutrophil Count 3.8 X10^3/uL (2.0-7.7); Basophil# 0.05 X10^3/uL; Basophil% 0.8 % (0-1); Eosinophil# 0.15 X10^3/uL; Eosinophils% 2.4 % (0-5); Hematocrit 39.3 % (37-47); Hemoglobin 12.4 g/dL (12.0-15.0); Lymphocyte # 1.75 X10^3/ul (4.0); Lymphocyte % 27.9 % (19-41); Mean Corp Hgb Conc 31.6 g/dL (32-36); Mean Corpuscular Hgb 27.6 pg (27.0-32.0); Mean Corpuscular Volume 87.5 fL (81-99); Mean Platelet Vol. 9.4 fl (6.2-12.0); Monocyte# 0.47 X10^3/uL; Monocyte% 7.5 % (0-10); NRBC Flagged by Analyzer 0 % (0-5); Neutrophil # 3.81 X10^3/uL (2.7-7.7); Neutrophil % 60.8 % (47-70); Platelet Count 248 K/mm3 (150-450); RBC Distribution Width CV 13.4 % (11.6-14.6); RBC Distribution Width SD 42.5 fl (35.1-43.9); Red Blood Count 4.49 M/mm3 (4.2-5.4); White Blood Count 6.3 K/mm3 (4.4-11.0)
[2019-09-17 12:04] LABS: Anion Gap 4 (5-15); BUN 16 mg/dL (7-18); BUN/Creat Ratio 22.8 RATIO (10-20); Calcium,Total 9.2 mg/dL (8.5-10.1); Chloride 103 mmol/L (98-107); EST Glomerular Filtration Rate 90 mL/min (>60); Est Glom Filt Rate - Afr Amer 109 mL/min (>60); Glucose 105 mg/dL (74-106); Potassium 3.6 mmol/L (3.5-5.1); Sodium Level 140 mmol/L (136-145)
[2019-09-17 12:10] LABS: Hemoglobin A1c 6.2 % (4.2-6.3)
--- NOTE | 2019-09-17 17:53 | PCM.HP.BLA ---
History and Physical History and Physical Patient Name: Kennedi Peres : 1960 From: YESSICA ALCALA PA-C DATE OF SURGERY: 10/06/2019 SCHEDULED PROCEDURE: right total hip arthroplasty HISTORY OF PRESENT ILLNESS: Preoperative history and physical exam was performed on September 17, 2019. This is a 58-year-old female who is been having ongoing pain for the past year. Patient states her pain as being constant. Her pain is increased with going up and down stairs, walking, and standing. Patient has difficult time with activities of daily living including walking, hiking, housework, and shopping. Patient has had a fall secondary to her hip. She feels unsafe walking without the use of a cane. Patient states her pain can rates as high as an 8/10. She complains of significant groin pain as well as pain when weightbearing. She has tried rest, ice, heat, elevation with minimal relief. Patient has tried home exercises without relief. She has been on Aleve with no significant relief in symptoms. Patient denies previous surgery on her right hip. Patient has a medical history pertinent for hypertension, type 2 diabetes mellitus, fibromyalgia, depression, glaucoma, obstructive sleep apnea, severe persistent asthma, history of heart catheterization, chronic premature ventricular contractions. Patient currently is being followed by administrative services assistant Dr. Gant as well as interior design professional Dr. Garza. We have obtain surgical clearance from both the interior design professional and administrative services assistant. Patient has had recent stress test and echo in April 2019. She has also had a recent heart catheterization in April 2019. Patient does have medical history pertinent for previous left total hip arthroplasty on January 24, [address] Ethan Makrs. She currently denies chest pain, shortness of breath, fevers chills. After failing conservative measures, patient does wish to proceed with a right total hip arthroplasty. REVIEW OF SYSTEMS: ROS: Const: Denies change in appetite, fever,or weight change. CV: Denies chest pain, heart murmur and irregular heartbeat. Resp: Reports cough and wheezing, but denies pneumonia, SOB and tuberculosis. GI: Reports constipation, but denies diarrhea, difficulty swallowing, heartburn, nausea, bloody stools and vomiting. : Urinary: denies incontinence. Musculo: Reports limp and trouble walking, but denies leg swelling and weakness. Skin: Denies Raynaud's, history of shingles and tattoo. Neuro: Denies ambulatory dysfunction, dizziness, numbness/tingling and tremor. Psych: Reports anxiety and stress, but denies insomnia. Blayne/Lymph: Denies anemia, bleeding/bruising tendency and past transfusion. Reviewed, no changes. PAST MEDICAL HISTORY: Advance Care Plan: Other Directive, LIVING WILL Effective Date: 09/17/2019 Other Directive, POA Effective Date: 09/17/2019 PMH: Medical Problems: Arthritis, Asthma, Depression, Diabetes, Fibromyalgia, High Blood Pressure, Kidney Stones, Vision Problems/Blind, Glaucoma Accidents: Fracture - LT ANKLE Surgical Hx: Cyst Removed From Thyroid - (1977) Hemorrhoid - (1979) [facility] LT THR - (01/24/2016) [email or web address] Anesthesia Complications: None Assistive Devices: Glasses, Dentures Reviewed, no changes. SOCIAL HISTORY: SH: Marital: .Occupation: Currently Working - [employer] .Work Status: Injured.Hand Dominance: Right-handed. Personal Habits: Cigarette Use: Former Cigarette Smoker.Alcohol: Occasionally.Drug Use: Former Illegal Drug User - MARIJUANA.Enjoy Exercising: Never Exercises. Reviewed, no changes. VITALS: Ht: 65.5 Wt: 265lb Wt k.204 BMI: 43.4 BP: 130/86 Pulse: 80 Resp: 18 T: 98.1 T: 36.7C ALLERGIES: Latex Tetracycline Lipitor Pineapple Pecans English [employer] MEDICATIONS: Losartan Potassium/Hydrochlorothiazide 100-25 mg 1 by mouth every day, Flonase Allergy Relief 50 mcg/Act 2 sprays each nostril, Escitalopram Oxalate 10 mg 1po qday, Carvedilol 3.125 mg 1po bid, Albuterol Sulfate (2.5 mg/3ml) 0.083% PRE-OP EXAM: General appearance:NORMAL Other: Eyes: Conjunctivae and lids: NORMAL Pupils: ERR Ears, Nose, Mouth, and Throat: NORMAL Other: Inspection of lips, teeth and gums: NORMAL Other: Neck: Examination of neck: no masses noted. Respiratory: Assessment of respiratory effort: NORMAL Other: Auscultation of lungs: clear to auscultation no wheezes, rhonchi or rales. Cardiovascular: Auscultation of heart: regular rate and rhythm, no murmurs, gallops or rubs. Gastrointestinal: Exam of abdomen: soft, nontender, nondistended bowel sounds present. PHYSICAL EXAMINATION: Patient does walk with an antalgic gait with use a cane. Right hip is cool to touch without erythema. Range of motion: Hip flexion 80, internal rotation to neutral, external rotation 25. Sensation intact to light touch. IMAGING STUDIES: X-rays of the right hip reveal no acute findings for fracture or dislocation. There is progressive osteoarthritis of the right hip with joint space narrowing, subchondral sclerosis, osteophyte formation. Patient also has further collapse of the femoral head with associated mild shortening. IMPRESSION: 1. Severe right hip osteoarthritis 2. History of heart catheterization: History of premature ventricular contractions 3. Hypertension 4. Type 2 diabetes mellitus 5. Fibromyalgia 6. Depression 7. Glaucoma 8. Obstructive sleep apnea 9. Severe persistent asthma PLAN: Dr. Ethan Marks did discuss and review with the patient all treatment options including surgical versus nonsurgical options. Patient does wish to proceed with the above-stated procedure. Potential risks, benefits, and complications of the procedure were discussed in detail including but not limited to , infection, nerve and blood vessel damage, persistent pain, numbness, tingling, paresthesias, blood clot, pulmonary embolism, and requirement for possible further surgery. The patient expressed full understanding and has no further questions for the doctor. Patient does agree to proceed with the above-stated procedure and has signed the surgery consent form. This dictation was created using voice recognition software. Phonetic and/or grammatical errors may exist. ___ I have re-examined the patient. There are no clinical changes since date of exam. ___ See progress notes for changes. ___ Dictated on admission Date: Time: Signature:
[2019-09-26 01:14] VITALS: BMI 42.5
[2019-10-06] VITALS (12 sets, daily range): BP systolic 109–150; BP diastolic 52–76; PULSE 62–96; RESP 14–18; TEMP 36.4–36.8; O2SAT 94–100; BMI 40.7
[2019-10-06] MEDS: Acetaminophen 500 MG Tablet 1000 MG PO ×3 (07:32→21:59)
[2019-10-06] MEDS: Celecoxib 200 MG Capsule 400 MG PO (07:33)
[2019-10-06] MEDS: Gabapentin 600 MG Tablet PO (07:33)
[2019-10-06] MEDS: Magnesium Sulfate 4gm/100mL 4 GM/100 ML IV.SOLN. IV (07:45)
[2019-10-06 08:20] LABS: Bedside Glucose 110 mg/dL (70-110)
[2019-10-06] MEDS: Cefazolin 2 GM in 0.9% Normal Saline 100 ML IV (09:06)
--- NOTE | 2019-10-06 10:00 | RAD_ITS ---
STUDY: X-RAY - PELVIS AND RIGHT HIP REASON FOR EXAM: Right hip arthroplasty. TECHNIQUE: 6 intraoperative images of the hip. COMPARISON: Radiographs 01/24/2016. FINDINGS: There is a right hip arthroplasty without evidence of complication. Electronically Signed: Myles Saldana MD at 14:45 EST Tel , Service support , RAD/Hip 1 view with Pelvis
--- NOTE | 2019-10-06 10:33 | PCM.OPRPT ---
Report of Operation Date of Procedure: 10/06/19 Pre-Operative Diagnosis: Right hip primary osteoarthritis Post-Operative Diagnosis: Right hip primary osteoarthritis Surgery/Procedure Performed:: Minimally invasive right direct anterior total replacement Description of Surgical Findings:: Stable hip with equal leg lengths electronic prepress operator: Karishma Parekh Type of Anesthesia:: Spinal Anesthesiologist: Vikas Park Special Medications: 2 g Ancef, 1 g TXA at incision, 1 g TXA closure, 10 mg Decadron, joint cocktail (5 mg Duramorph, 30 mL of 0.5% Ropivicaine, 1000 units of epinephrine, 30 mg of Toradol) Specimen's removed: Bony cuts Estimated Blood Loss (mL): 200 mL Fluids Replaced: 1000 mL crystalloid Description of Procedure: Components used: 1. Accolade 2 Mamadou femoral stem size 4 127? 2. Rowley trident 2 acetabular shell size 52 mm 3. Rowley X3 polyethylene E 4. Mamadou Biolox delta 36 mm, +2.5 mm femoral head Brief history operative indications: 58yo female who failed conservative measures for their hip osteoarthritis. X-rays were consistent with osteoarthritis including joint space narrowing, osteophyte formation and subchondral cysts. Total hip replacement was discussed with the patient with risks and benefits including but not limited to blood loss, DVTs, PEs, neurovascular damage, dislocation, general risks of anesthesia including loss of life. Patient demonstrated an understanding medical clearance is obtained the patient was consented for surgery. Procedure: On the date of procedure the patient's R hip was marked in the preoperative area. Patient was then taken back to the operating room where anesthesia assumed control of the C-spine and airway and administered anesthetic. Patient was transferred to the operating table and placed in the supine position. The hips were placed at the break of the bed and a sacral bump was placed. The R lower extremity was then prepped out in a sterile fashion using chlorhexidine while the surgeon scrubbed. The PA was vital in the positioning of the patient. Upon reentering the room the R lower extremity was draped in the standard orthopedic fashion and the incision was marked. A timeout was called and everyone agreed upon the side, the site, the procedure be performed, antibody given, and patient's identity. At this time incision was made through skin, subcutaneous tissue, and fat down to fascia. The fascia was then incised and the TFL was retracted laterally. A retractor was placed on the lateral border of the femoral neck. Attention was directed to the inferior portion of the approach and all crossing vessels were identified and appropriately coagulated. A retractor was then placed on the medial portion of the femoral neck. The anterior capsule was then cleared of all soft tissue and then H shaped capsulotomy was made. The retractors were then placed inside the capsule. The femoral neck was identified and a cleanup cut was made. At this time a power corkscrew was used to remove the femoral head. Attention was then turned toward the acetabulum where the soft tissues were appropriately retracted and the acetabulum was sequentially reamed to 52 mm. A 52 mm cup was then selected and impacted into place. Acetabular liner was impacted into place and locking mechanism was verified. The position of the acetabular cup was then verified under live fluoroscopy. Attention was then turned to the femur. Soft tissue releases on the medial and lateral femoral neck were appropriately done, the leg was externally rotated and lateralized. A Jay retractor was placed medially and proximally to the greater trochanter this allowed appropriate visualization and exposure of the femoral canal. Rongeour was then used to remove excess lateral bone. A canal finder and entry broach were used to open the proximal canal. Once we verified we were down the femoral canal we subsequently broached up to a size 4 femur. The appropriate neck was placed in the previously selected head was trialed with a +2.5 mm neck. Traction was pulled and the hip was reduced with internal rotation. Once it was appropriately reduced and stability was checked. There was minimal shuck, equal leg lengths and appropriate stability with hyperextension and external rotation as well as with 90? flexion and internal rotation. Fluoroscopy was then also used to verify the position of the components and leg lengths using the contralateral side for comparison. The trial components were then dislocated the proximal femur was again exposed and the components were removed from the wound. The final components were verified and opened. The wound was copiously irrigated out with normal saline. The acetabulum was checked for any residual debris. The final components were placed and impacted. Traction and internal rotation were again used to reduce the hip. After adequate reduction the hip remained stable with appropriate leg lengths. The final components were once again checked with live fluoroscopy and were found to be satisfactory. The wound was then copiously irrigated with normal saline once more, and hemostasis was obtained. Closure was then done using #1 Vicryl runner to close the fascia. A 2-0 vicryl interuppted sutures were used to close the subcutaneous skin. A 3-0 Monocryl and Steri-Strips were used for final skin closure. A Silverlon dressing was placed. Patient was awakened by anesthesia and transferred to the [facility]. Patient was then transferred to the PACU for recovery. Postoperative plan: Patient will get 24 hours postop antibiotics. Patient will get in-house physical therapy and will be weight-bear as tolerated. Patient will follow up in office in 2 weeks for a wound check and x-rays. During the course of the procedure the nurse practitioner played a vital role. His intimate knowledge of my steps in the procedure aided in safe and expedient completion of the procedure. The BILLING CONTROL CLERK played a vital rolls in positioning particularly in obtaining the appropriate positioning of the sacral bump. The BILLING CONTROL CLERK was also vital in the retraction of soft tissues during the exposure and especially the femoral work as this is a vital part of the procedure to prevent complications and fractures. The BILLING CONTROL CLERK was also vital and protecting soft tissues during times of bony cuts and reaming. He also played a vital role in closure with my direct supervision. The BILLING CONTROL CLERK was also important during reduction and dislocation of the joint and trials intraoperatively. Grafts/Implants Used: Mamadou - Complications No intraoperative complications - Admit VTE Documentation VTE Present on Admission: No VTE Mechan Device Prophylaxis: SCD's, Thigh High MATTHEW Hose VTE Pharm Prophylaxis ordered?: Yes
[2019-10-06] MEDS: dexAMETHasone 10 MG/ML Vial IV (11:15)
--- NOTE | 2019-10-06 11:46 | RAD_ITS ---
STUDY: X-RAY - PELVIS AND RIGHT HIP REASON FOR EXAM: Postop right total hip arthroplasty. TECHNIQUE: 2 views of the pelvis and hip. COMPARISON: Radiographs 01/24/2016. FINDINGS: There are small pelvic phleboliths. Normal bilateral superior and inferior pubic rami. There mild degenerative changes of the pubic symphysis. Normal bilateral ischial tuberosities. There is interval placement of a right total hip arthroplasty without evidence complication. There is a previous left total hip arthroplasty. RAD/Hip Min 2 Views (Portable) IMPRESSION: Uncomplicated right total hip arthroplasty. Electronically Signed: Myles Saldana MD at 12:28 EST Tel , Service support ,
[2019-10-06] MEDS: Scopolamine 1mg/72hr Patch 1 PATCH TD (11:58)
[2019-10-06] MEDS: Lactated Ringers 1,000 ML 90 ML IV ×2 (11:58→21:58)
--- NOTE | 2019-10-06 14:56 | PCM.PN.HOSP ---
Reason for Visit: Right hip arthroplasty Subjective: 58 y/o female with PMHx with past medical history of hypertension, type II DM, sleep apnea on CPAP, asthma/COPD, osteoarthritis who comes in for elective right hip replacement having failed conservative management for right hip osteoarthritis. Patient states that most of her chronic medical conditions are stable. She was seen in the immediate postop.. She denied any fever or chills or progressive shortness of breath. Her pain is controlled on her current regimen. Vitals are temperature 97.6 F, heart rate 70, blood pressure 150/71, respiratory rate 18, SPO2 is 96% on room air. Her CBCD and BMP is unremarkable. HbA1c 6.2 Vitals/I&O's: Vital Signs Temp Pulse Resp BP Pulse Ox 97.7 F L 65 18 139/75 H 100 10/06/19 13:00 10/06/19 13:00 10/06/19 13:00 10/06/19 13:00 10/06/19 13:00 Oxygen Flow Rate (L/min) 6 Oxygen Delivery Method Simple Mask Weight: 118.025 kg Body Mass Index (BMI) 40.7 Finger Stick Blood Glucose 172 Intake and Output for Last 24 Hours 10/04/19 10/05/19 10/06/19 23:59 23:59 23:59 Intake Total 430 / 430 Balance 430 / 430 General: Alert, Oriented x3, Cooperative, No apparent distress, - - obese HEENT: Atraumatic, PERRLA, EOMI, Normocephalic Oral: Moist Mucosa Neck: Supple Lungs: Clear to auscultation Cardiovascular: Regular rate, Regular Rhythm, Normal S1, Normal S2, No murmurs Abdomen: Bowel Sounds Present, Soft, Non Tender, Non-Distended, No Hepato-splenomegaly Extremities: No edema Skin: No rashes, No breakdown Musculoskeletal: Tenderness - right hip tenderness with cooling mat Lymphatic: No Cervical, Supraclavicular, or Inguinal Adenopathy Neurological: Cranial nerves II-XII grossly intact, Neuro grossly intact Psych/Mental Status: Normal Affect, Appropriate Laboratory Results 10/06/19 08:05: POC Glucose 110 Current Medications Acetaminophen (Tylenol) 1,000 mg PO Q8 [facility] Albuterol Sulfate (Ventolin Aerosols) 2.5 mg INHALATION Q4H PRN PRN PRN Reason: SOB &/OR WHEEZING Albuterol Sulfate (Ventolin Aerosols) 2.5 mg INHALATION Q6HWA.RT [facility] Aspirin (Aspirin, Baby) 81 mg PO BIDCM [facility] Budesonide (Pulmicort Aerosol) 0.5 mg INHALATION Q12H.RT [facility] Carvedilol (Coreg) 3.125 mg PO BID [facility] Last Admin: 10/06/19 12:59 Dose: Not Given Documented by: Enteral Nutritional Formula (Ensure Surgery) 237 ml PO TIDCM [facility] Escitalopram Oxalate (Lexapro) 10 mg PO DAILY [facility] Famotidine (Pepcid) 20 mg PO DAILY [facility] Fluticasone Propionate (Flonase Nasal [place]) 2 spray NASAL DAILY [facility] Hydrochlorothiazide (Hctz) 25 mg PO DAILY [facility] Lactated Ringer's () 1,000 mls @ 90 mls/hr IV .Q11H7M [facility] Last Admin: 10/06/19 11:58 Dose: 90 mls/hr Documented by: Cefazolin Sodium () 1 gm in 50 mls @ 150 mls/hr IV Q8H [facility] Stop: 10/07/19 01:19 Ketorolac Tromethamine (Toradol) 15 mg IV Q6H PRN PRN PRN Reason: Pain Score 1-5/10 Stop: 10/08/19 07:06 Latanoprost (Xalatan Opthalmic) 1 drop OPHTHALMIC QHS [facility] Losartan Potassium (Cozaar) 100 mg PO DAILY [facility] Meloxicam (Mobic) 7.5 mg PO BID [facility] Montelukast Sodium (Singulair) 10 mg PO QHS [facility] Morphine Sulfate () 2 - 4 mg IV Q2H PRN PRN PRN Reason: Severe pain (6-10) Morphine Sulfate () 2 - 4 mg IV Q2H PRN PRN PRN Reason: Severe pain (6-10) Ondansetron HCl (Zofran) 4 mg IV Q8H PRN PRN PRN Reason: NAUSEA Promethazine HCl (Phenergan) 12.5 mg IM Q6H PRN PRN; Protocol PRN Reason: NAUSEA/VOMITING Senna/Docusate Sodium (Senokot-S, Marisol-Colace) 2 tablet PO BID [facility] Sodium Chloride () 10 - 40 ml IV UD PRN PRN Reason: SALINE FLUSH Tramadol HCl (Ultram) 50 - 100 mg PO Q6H PRN PRN PRN Reason: Pain Score 4-10 STROKE Vital Signs/Narrative: Vital Signs Temp Pulse Resp BP Pulse Ox 10/06/19 13:00 97.7 F L 65 18 139/75 H 100 10/06/19 12:23 98.3 F 68 18 118/63 100 10/06/19 12:15 63 16 119/61 100 10/06/19 12:00 65 18 109/66 100 10/06/19 11:45 62 18 127/55 H 100 10/06/19 11:30 63 18 131/54 H 97 10/06/19 11:18 98.3 F 63 16 117/52 L 99 Medical Necessity - Tobacco Use Smoking Status: Former smoker Tobacco Use: Non-smoker Assessment/Plan All Active Problems (Last Reviewed 08/06/19 @ 14:03 by Rosalva Meyers NP-C) Prolonged QT interval (Acute) Syncope and collapse (Resolved) Abnormal EKG (Acute) Abnormal stress test (Acute) Dyspnea on exertion (Resolved) History of thyroidectomy (Resolved) History of total left hip replacement (Resolved 01/24/16) 1. POD #0, status post minimally invasive right direct anterior total hip replacement Pain is fairly controlled, cooling mat in place, continue per orthopedic recommendations Continue current pain regimen 2. Hypertension, controlled, no associated renal dysfunction, continue on carvedilol, CT said and losartan 3. Type II DM, HbA1c 6.2, blood sugars are controlled, will continue with blood glucose checks and insulin sliding scale 4. Obstructive sleep apnea, continue on CPAP 5. Anxiety/depression/fibromyalgia, on Lexapro 6. Asthma/COPD, not in acute exacerbations, will continue with prn breathing treatments 7. DVT PPx- per orthopedics recommendations Code Visit Inpatient E&M: 35243 Subs Hosp L2
[2019-10-06] MEDS: Ensure Surgery 237 ML LIQUID PO ×2 (14:57→17:11)
[2019-10-06] MEDS: Famotidine 20 MG Tablet PO (14:57)
[2019-10-06] MEDS: Escitalopram Oxalate 10 MG Tablet PO (14:58)
[2019-10-06] MEDS: Senna/Docusate Sodium 1 Tablet 2 TABLET PO ×2 (14:58→21:59)
[2019-10-06] MEDS: Cefazolin 1 GM/50 ML BAG IV (17:11)
[2019-10-06] MEDS: 0.9% Saline Lock 10 ML Syringe IV (17:12)
[2019-10-06] MEDS: Ketorolac 15 MG/ML Vial IV (17:12)
[2019-10-06] MEDS: Aspirin 81 MG TAB.CHEW PO (17:13)
[2019-10-06] MEDS: Insulin Lispro 100 UNIT/ML INSULN.PEN SC ×2 (17:14→22:00)
[2019-10-06 17:35] LABS: Bedside Glucose 295 mg/dL (70-110)
[2019-10-06] MEDS: Albuterol 2.5 MG/3 ML VIAL.NEB. INHALATION (19:39)
[2019-10-06] MEDS: Budesonide Respules 0.5 MG/2 ML AMPUL.NEB. INHALATION (19:39)
[2019-10-06] MEDS: Montelukast 10 MG Tablet PO (21:58)
[2019-10-06] MEDS: Latanoprost 0.005% 1 Bottle 1 DRP OPHTHALMIC (21:58)
[2019-10-06] MEDS: Carvedilol 3.125 MG TABLET PO (21:59)
[2019-10-06 22:16] LABS: Bedside Glucose 288 mg/dL (70-110)
[2019-10-07] MEDS: Cefazolin 1 GM/50 ML BAG IV (01:31)
[2019-10-07 02:25] VITALS: BP 137/66; PULSE 86; RESP 18; TEMP 36.8; O2SAT 96
[2019-10-07] MEDS: Acetaminophen 500 MG Tablet 1000 MG PO ×2 (05:29→13:54)
[2019-10-07] MEDS: traMADol 50 MG Tablet PO ×2 (05:32→11:33)
[2019-10-07 06:20] LABS: Hematocrit 34.4 % (37-47); Hemoglobin 11.1 g/dL (12.0-15.0); Mean Corp Hgb Conc 32.3 g/dL (32-36); Mean Corpuscular Hgb 27.9 pg (27.0-32.0); Mean Corpuscular Volume 86.4 fL (81-99); Mean Platelet Vol. 9.6 fl (6.2-12.0); Platelet Count 242 K/mm3 (150-450); RBC Distribution Width CV 13.2 % (11.6-14.6); RBC Distribution Width SD 41.7 fl (35.1-43.9); Red Blood Count 3.98 M/mm3 (4.2-5.4); White Blood Count 12.1 K/mm3 (4.4-11.0)
[2019-10-07] MEDS: Insulin Lispro 100 UNIT/ML INSULN.PEN SC ×3 (06:32→16:03)
--- NOTE | 2019-10-07 06:35 | PCM.PN.ORT ---
Subjective: The patient was sitting in bed upon examination. Patient denies any chest pain, shortness of breath, dizziness, lightheadedness, nausea or vomiting, or calf pain. Pain is controlled on medications. No adverse overnight events. Overall patient is doing well this morning. She has been using her CPAP machine overnight. Patient has been up walking and has tolerated this well. Objective: Vital signs stable and afebrile. Patient is able to plantarflex and dorsiflex actively. Sensation is intact to light touch to saphenous, sural, superficial and deep peroneal, and tibial distribution. Overall dressing is clean dry and intact. There is 1 drop of drainage over the middle one third Negative Homans bilaterally, negative signs and symptoms of DVT. - Physical Exam Vitals/I&O's: Vital Signs Temp Pulse Resp BP Pulse Ox 98.2 F 86 18 137/66 H 96 10/07/19 02:25 10/07/19 02:25 10/07/19 02:25 10/07/19 02:25 10/07/19 02:25 Oxygen Flow Rate (L/min) 6 Oxygen Delivery Method CPAP Weight: 118.025 kg Body Mass Index (BMI) 40.7 Finger Stick Blood Glucose 172 Intake and Output for Last 24 Hours 10/05/19 10/06/19 10/07/19 23:59 23:59 23:59 Intake Total 2598.5 / 2598.5 936.0 / 936.0 Balance 2598.5 / 2598.5 936.0 / 936.0 General: Alert, Oriented x3, Cooperative, No apparent distress Laboratory Results 10/06/19 08:05: POC Glucose 110 10/06/19 17:10: POC Glucose 295 H 10/06/19 21:40: POC Glucose 288 H 10/07/19 06:00: WBC 12.1 H, RBC 3.98 L, Hgb 11.1 L, Hct 34.4 L, MCV 86.4, MCH 27.9, MCHC 32.3, RDW Std Deviation 41.7, RDW Coeff of Celeste 13.2, Plt Count 242, MPV 9.6 10/07/19 06:00: Sodium Pending, Potassium Pending, Chloride Pending, Carbon Dioxide Pending, Anion Gap Pending, BUN Pending, Creatinine Pending, Est GFR (MDRD) Af Amer Pending, Est GFR (MDRD) Non-Af Pending, BUN/Creatinine Ratio Pending, Glucose Pending, Calcium Pending Current Medications Acetaminophen (Tylenol) 1,000 mg PO Q8 [facility] Last Admin: 10/07/19 05:29 Dose: 1,000 mg Documented by: Albuterol Sulfate (Ventolin Aerosols) 2.5 mg INHALATION Q4H PRN PRN PRN Reason: SOB &/OR WHEEZING Albuterol Sulfate (Ventolin Aerosols) 2.5 mg INHALATION Q6HWA.RT [facility] Last Admin: 10/06/19 19:39 Dose: 2.5 mg Documented by: Aspirin (Aspirin, Baby) 81 mg PO BIDCM [facility] Last Admin: 10/06/19 17:13 Dose: 81 mg Documented by: Budesonide (Pulmicort Aerosol) 0.5 mg INHALATION Q12H.RT [facility] Last Admin: 10/06/19 19:39 Dose: 0.5 mg Documented by: Carvedilol (Coreg) 3.125 mg PO BID [facility] Last Admin: 10/06/19 21:59 Dose: 3.125 mg Documented by: Enteral Nutritional Formula (Ensure Surgery) 237 ml PO TIDCM [facility] Last Admin: 10/06/19 17:11 Dose: 237 ml Documented by: Escitalopram Oxalate (Lexapro) 10 mg PO DAILY [facility] Last Admin: 10/06/19 14:58 Dose: 10 mg Documented by: Famotidine (Pepcid) 20 mg PO DAILY [facility] Last Admin: 10/06/19 14:57 Dose: 20 mg Documented by: Fluticasone Propionate (Flonase Nasal [place]) 2 spray NASAL DAILY [facility] Glucagon () 1 mg IM .X1 PRN PRN Reason: Hypoglycemia Hydrochlorothiazide (Hctz) 25 mg PO DAILY [facility] Lactated Ringer's () 1,000 mls @ 90 mls/hr IV .Q11H7M [facility] Last Infusion: 10/07/19 05:28 Dose: Infused Documented by: Dextrose (Dextrose 10%-Water) 250 mls @ 999 mls/hr IV X1 PRN; Protocol PRN Reason: HYPOGLYCEMIA Insulin Human Lispro (Humalog Kwikpen (Bkc)) 0 unit SC ACHS [facility]; Protocol Last Admin: 10/07/19 06:32 Dose: 1 units Documented by: Ketorolac Tromethamine (Toradol) 15 mg IV Q6H PRN PRN PRN Reason: Pain Score 1-5/10 Stop: 10/08/19 07:06 Last Admin: 10/06/19 17:12 Dose: 15 mg Documented by: Latanoprost (Xalatan Opthalmic) 1 drop OPHTHALMIC QHS [facility] Last Admin: 10/06/19 21:58 Dose: 1 drop Documented by: Losartan Potassium (Cozaar) 100 mg PO DAILY [facility] Meloxicam (Mobic) 7.5 mg PO BID [facility] Montelukast Sodium (Singulair) 10 mg PO QHS [facility] Last Admin: 10/06/19 21:58 Dose: 10 mg Documented by: Morphine Sulfate () 2 - 4 mg IV Q2H PRN PRN PRN Reason: Severe pain (6-10) Morphine Sulfate () 2 - 4 mg IV Q2H PRN PRN PRN Reason: Severe pain (6-10) Ondansetron HCl (Zofran) 4 mg IV Q8H PRN PRN PRN Reason: NAUSEA Promethazine HCl (Phenergan) 12.5 mg IM Q6H PRN PRN; Protocol PRN Reason: NAUSEA/VOMITING Senna/Docusate Sodium (Senokot-S, Marisol-Colace) 2 tablet PO BID [facility] Last Admin: 10/06/19 21:59 Dose: 2 tablet Documented by: Sodium Chloride () 10 - 40 ml IV UD PRN PRN Reason: SALINE FLUSH Last Admin: 10/06/19 17:12 Dose: 10 ml Documented by: Tramadol HCl (Ultram) 50 - 100 mg PO Q6H PRN PRN PRN Reason: Pain Score 4-10/10 Last Admin: 10/07/19 05:32 Dose: 50 mg Documented by: Medical Necessity - Tobacco Use Smoking Status: Former smoker Tobacco Use: Non-smoker Assessment/Plan All Active Problems (Last Reviewed 08/06/19 @ 14:03 by LATASHA Castle) Prolonged QT interval (Acute) Syncope and collapse (Resolved) Abnormal EKG (Acute) Abnormal stress test (Acute) Dyspnea on exertion (Resolved) History of thyroidectomy (Resolved) History of total left hip replacement (Resolved 01/24/16) 1. S/P direct anterior right total hip arthroplasty POD #1 2. Continue Pain Medications: Tylenol and tramadol 3. DVT Prophylaxis: Aspirin 81 mg twice daily for 4 weeks postoperatively 4. PT/OT: Weightbearing as tolerated 5. H & H: 11.1/34.4, asymptomatic. BMP is still pending. 6. Reactive leukocytosis: Currently at 12.1, afebrile. Patient did receive Decadron intraoperatively 7. Continue postoperative medical management per medicine: Appreciate assistance with patient postoperatively while in the hospital. 8. Encouraged Incentive Spirometry 9. Disposition: Orthopedically stable, plan will be for possible discharge home this afternoon if patient tolerates physical therapy and cleared by medicine. Prescriptions will be E scribed to right [facility] in [facility]. Patient has outpatient formal physical therapy established. She will follow-up per postop instructions. I have reviewed the [employer] Rx Reporting System (OARRS) report for this patient for refill pattern and other prescriber involvement as part of the appropriate surveillance for the provision of acute and chronic controlled medications. The report was requested and reviewed on the date of this entry and was considered in the prescribing process.
[2019-10-07 06:41] LABS: Bedside Glucose 193 mg/dL (70-110)
--- NOTE | 2019-10-07 06:42 | DCINST_ITS ---
Discharge Diet: 1800 Calorie Control Diet Discharge Activity: May Not Drive - while taking narcotic pain medications. May shower in (days): 1 - Turn dressing away from water Ice area for (Minutes): 20 - Every 1-2 hours while awake Weight Bearing Status: Weight bearing as tolerated - With walker Elevate: Operative Extremity Additional Activity Instructions:: Wear elastic stockings for 2 weeks. DO NOT use alcohol with narcotic pain medication. DO NOT make important decisions while taking narcotic medication. If you have problems with taking your medication (rash, itching, nausea, etc.) call the office at once. Call your doctor if your incision/area has: Increased Pain/ Swelling, Increased Redness, Foul Smelling Discharge Call your doctor if you observe: Fever of 101 or Higher Remove Dressing in (days):: 4 - Okay to remove dressing on October 11, 2019 Additional Instructions: Follow orthopedic postop instructions Allergies/Adverse Reactions: Allergies tetracycline Allergy (Verified 09/17/19 10:59) HEADACHE verapamil Adverse Reaction (Intermediate, Verified 09/17/19 10:59) constipation atorvastatin [From Lipitor] Adverse Reaction (Unknown, Verified 09/17/19 10:59) Unknown Iodinated Contrast Media [Iodinated Contrast Media - IV Dye] Adverse Reaction (Verified 09/17/19 10:59) Shortness of breath latex Adverse Reaction (Verified 09/17/19 10:59) Rash POWDER FROM THE GLOVES IS THE PROBLEM Medications to take at Discharge Albuterol Sulfate [Proair Hfa] 2 puff INHALATION Q4H PRN PRN 10/29/13 Latanoprost 1 drp OPHTHALMIC (EYE) QHS 10/29/13 Fluticasone Propionate [Flonase Allergy Relief] 2 spray NS DAILY 01/15/16 albuterol sulfate 2.5 mg/3 mL (0.083 %) solution for nebulization 2.5 mg CONTINUOUS NEBULIZATION BID PRN PRN #180 ml 07/15/19 Budesonide/Formoterol 160/4.5 [Symbicort 160/4.5 Mcg Inhaler (SP)] 2 puff INHALATION BID 08/19/19 Montelukast [Singulair] 10 mg PO QHS 08/19/19 Carvedilol 3.125 mg PO BID 09/17/19 Escitalopram Oxalate [Lexapro] 10 mg PO DAILY 09/17/19 Losartan/Hydrochlorothiazide [Losartan-Hctz 100-25 mg Tab] 1 tab PO DAILY 09/17/19 Acetaminophen [Tylenol] 1,000 mg PO Q8 #100 tab 10/07/19 Aspirin [Aspirin, Baby] 81 mg PO BIDCM #60 tab 10/07/19 Famotidine [Pepcid] 20 mg PO DAILY #30 tab 10/07/19 Meloxicam [Mobic] 7.5 mg PO BID #60 tab 10/07/19 traMADol [Ultram] 50 - 100 mg PO Q6H PRN PRN 5 Days #40 tablet 10/07/19 The following prescriptions were given: Aspirin [Aspirin, Baby] 81 mg PO BIDCM #60 tab Transmission Status: Pending to [address] Meloxicam [Mobic] 7.5 mg PO BID #60 tab Transmission Status: Pending to [address] Famotidine [Pepcid] 20 mg PO DAILY #30 tab Transmission Status: Pending to [address] Acetaminophen [Tylenol] 1,000 mg PO Q8 #100 tab Transmission Status: Pending to [address] traMADol [Ultram] 50 - 100 mg PO Q6H PRN PRN 5 Days #40 tablet PRN Reason: Pain Score 4-10/10 Transmission Status: Received by [facility] [id number] Primary Care Physician: Ervin Brush MD [Primary Care Provider] - Test Results: Test results from this visit will be discussed in further detail at your follow- up appointment, if applicable. Please Follow Up With: Physical Therapy When: 10/11/19 @ 10:00 am Please Follow Up With: Ethan Marks MD When: 10/21/19 @ 11:00 am
[2019-10-07 06:45] LABS: Anion Gap 6 (5-15); BUN 21 mg/dL (7-18); BUN/Creat Ratio 24.2 RATIO (10-20); Calcium,Total 8.6 mg/dL (8.5-10.1); Chloride 103 mmol/L (98-107); Creatinine, Serum 0.87 mg/dL (0.55-1.02); EST Glomerular Filtration Rate 71 mL/min (>60); Est Glom Filt Rate - Afr Amer 86 mL/min (>60); Estimated Creatinine Clearance 66.87 ml/min; Glucose 182 mg/dL (74-106); Potassium 3.5 mmol/L (3.5-5.1); Sodium Level 139 mmol/L (136-145)
[2019-10-07] MEDS: Albuterol 2.5 MG/3 ML VIAL.NEB. INHALATION (06:46)
[2019-10-07] MEDS: Budesonide Respules 0.5 MG/2 ML AMPUL.NEB. INHALATION (06:46)
[2019-10-07 06:47] VITALS: PULSE 69; RESP 18; O2SAT 96
[2019-10-07 08:21] VITALS: BP 164/84; PULSE 79; RESP 16; TEMP 36.8; O2SAT 100
[2019-10-07] MEDS: Senna/Docusate Sodium 1 Tablet 2 TABLET PO (08:22)
[2019-10-07] MEDS: Carvedilol 3.125 MG TABLET PO (08:22)
[2019-10-07] MEDS: Aspirin 81 MG TAB.CHEW PO ×2 (08:22→16:02)
[2019-10-07] MEDS: Losartan Potassium 100 MG Tablet PO (08:23)
[2019-10-07] MEDS: Escitalopram Oxalate 10 MG Tablet PO (08:23)
[2019-10-07] MEDS: hydroCHLOROthiazide 25 MG Tablet PO (08:23)
[2019-10-07] MEDS: Famotidine 20 MG Tablet PO (08:23)
[2019-10-07] MEDS: Ensure Surgery 237 ML LIQUID PO ×3 (08:31→16:02)
--- NOTE | 2019-10-07 10:40 | CASEMGMT ---
MORRIS BLANCHARD Face to Face with patient for initial transition planning/care coordination assessment. RN CM introduced self and role at [facility]. Patient sitting in chair, alert and oriented. Patient willing to participate in assessment and is able to answer all questions appropriately. Care providers, pharmacy, and demographics verified. Patient wishes to discharge home and is setup with [facility] for outpatient therapy. Patient states she has no further needs or concerns at this time. CM to follow for discharge planning needs that may arise. PCP:Currently Trudi, looking for new PCP Specialists: Greg gravedigger; Stalin Esol Teacher Assistant Preferred Pharmacy: [facility] Insurance: MMO Prescription Benefit: Yes Living Will/HPOA: yes, son Skyler Peres LNOK: son Living Arrangements: Patient lives with son in 2 story home with bed and bath on first floor. Patient independent at home. Transportation: son, friends DME/HHC: Patient has walker, shower chair, raised toilet, cpap, and nebulizer at home. Patient is setup with [facility] for outpatient therapy. Disposition Plan: Patient to discharge home with outpatient therapy, family support, and follow-up plans in place. Tri FORDE, RN, CM
--- NOTE | 2019-10-07 10:52 | PCM.PROGNOTE ---
Subjective: Chief complaint: Follow-up after consultation for postoperative medical management. Patient seen and examined. No acute events overnight. She is using her walker to walk. Right hip pain is manageable. Denied any other complaints apart from mild sinus congestion and mild cough. She has been afebrile. Blood pressures like elevated, other vital signs are stable. - Physical Exam Vitals/I&O's: Vital Signs Temp Pulse Resp BP Pulse Ox 98.2 F 79 16 164/84 H 100 10/07/19 08:21 10/07/19 08:21 10/07/19 08:21 10/07/19 08:21 10/07/19 08:21 Oxygen Flow Rate (L/min) 6 Oxygen Delivery Method Room Air Weight: 260 lb 3.209 oz Body Mass Index (BMI) 40.7 Finger Stick Blood Glucose 172 Intake and Output for Last 24 Hours 10/05/19 10/06/19 10/07/19 23:59 23:59 23:59 Intake Total 2598.5 / 2598.5 936.0 / 936.0 Balance 2598.5 / 2598.5 936.0 / 936.0 General: Alert, Oriented x3, Cooperative, No apparent distress HEENT: Atraumatic, PERRLA, EOMI, Normocephalic Oral: Moist Mucosa, No Gingival or Mucosal Lesions/ Ulcerations Neck: Supple, No JVD, Negative Carotid Bruits, Trachea Midline, Thyroid Normal Size and Texture Lungs: Clear to auscultation, Normal air movement, No rhonchi, No wheeze, No rales, Diminished Cardiovascular: Regular rate, Regular Rhythm, Normal S1, Normal S2, PMI Normal Abdomen: Bowel Sounds Present, Soft, Non Tender, Non-Distended, No Hepato-splenomegaly Extremities: No clubbing, No cyanosis, No edema Skin: No rashes, No breakdown Lymphatic: No Cervical, Supraclavicular, or Inguinal Adenopathy Neurological: Cranial nerves II-XII grossly intact, Motor Exam 5/5 strength throughout Psych/Mental Status: Normal Affect, Appropriate, Alert and oriented to time, place, person, mood and affect Laboratory Results 10/06/19 17:10: POC Glucose 295 H 10/06/19 21:40: POC Glucose 288 H 10/07/19 06:00: WBC 12.1 H, RBC 3.98 L, Hgb 11.1 L, Hct 34.4 L, MCV 86.4, MCH 27.9, MCHC 32.3, RDW Std Deviation 41.7, RDW Coeff of Celeste 13.2, Plt Count 242, MPV 9.6 10/07/19 06:00: Sodium 139, Potassium 3.5, Chloride 103, Carbon Dioxide 30.0, Anion Gap 6, BUN 21 H, Creatinine 0.87, Estim Creat Clear Calc 66.87, Est GFR (MDRD) Af Amer 86, Est GFR (MDRD) Non-Af 71, BUN/Creatinine Ratio 24.2 H, Glucose 182 H, Calcium 8.6 10/07/19 06:31: POC Glucose 193 H Current Medications Acetaminophen (Tylenol) 1,000 mg PO Q8 [facility] Last Admin: 10/07/19 05:29 Dose: 1,000 mg Documented by: Albuterol Sulfate (Ventolin Aerosols) 2.5 mg INHALATION Q4H PRN PRN PRN Reason: SOB &/OR WHEEZING Albuterol Sulfate (Ventolin Aerosols) 2.5 mg INHALATION Q6HWA.RT [facility] Last Admin: 10/07/19 06:46 Dose: 2.5 mg Documented by: Aspirin (Aspirin, Baby) 81 mg PO BIDCM [facility] Last Admin: 10/07/19 08:22 Dose: 81 mg Documented by: Budesonide (Pulmicort Aerosol) 0.5 mg INHALATION Q12H.RT [facility] Last Admin: 10/07/19 06:46 Dose: 0.5 mg Documented by: Carvedilol (Coreg) 3.125 mg PO BID [facility] Last Admin: 10/07/19 08:22 Dose: 3.125 mg Documented by: Enteral Nutritional Formula (Ensure Surgery) 237 ml PO TIDCM [facility] Last Admin: 10/07/19 08:31 Dose: 237 ml Documented by: Escitalopram Oxalate (Lexapro) 10 mg PO DAILY [facility] Last Admin: 10/07/19 08:23 Dose: 10 mg Documented by: Famotidine (Pepcid) 20 mg PO DAILY [facility] Last Admin: 10/07/19 08:23 Dose: 20 mg Documented by: Fluticasone Propionate (Flonase Nasal [place]) 2 spray NASAL DAILY [facility] Glucagon () 1 mg IM .X1 PRN PRN Reason: Hypoglycemia Hydrochlorothiazide (Hctz) 25 mg PO DAILY [facility] Last Admin: 10/07/19 08:23 Dose: 25 mg Documented by: Dextrose (Dextrose 10%-Water) 250 mls @ 999 mls/hr IV X1 PRN; Protocol PRN Reason: HYPOGLYCEMIA Insulin Human Lispro (Humalog Kwikpen (Bkc)) 0 unit SC ACHS [facility]; Protocol Last Admin: 10/07/19 06:32 Dose: 1 units Documented by: Ketorolac Tromethamine (Toradol) 15 mg IV Q6H PRN PRN PRN Reason: Pain Score 1-5/10 Stop: 10/08/19 07:06 Last Admin: 10/06/19 17:12 Dose: 15 mg Documented by: Latanoprost (Xalatan Opthalmic) 1 drop OPHTHALMIC QHS [facility] Last Admin: 10/06/19 21:58 Dose: 1 drop Documented by: Losartan Potassium (Cozaar) 100 mg PO DAILY [facility] Last Admin: 10/07/19 08:23 Dose: 100 mg Documented by: Meloxicam (Mobic) 7.5 mg PO BID [facility] Montelukast Sodium (Singulair) 10 mg PO QHS [facility] Last Admin: 10/06/19 21:58 Dose: 10 mg Documented by: Morphine Sulfate () 2 - 4 mg IV Q2H PRN PRN PRN Reason: Severe pain (6-10) Morphine Sulfate () 2 - 4 mg IV Q2H PRN PRN PRN Reason: Severe pain (6-10) Ondansetron HCl (Zofran) 4 mg IV Q8H PRN PRN PRN Reason: NAUSEA Promethazine HCl (Phenergan) 12.5 mg IM Q6H PRN PRN; Protocol PRN Reason: NAUSEA/VOMITING Senna/Docusate Sodium (Senokot-S, Marisol-Colace) 2 tablet PO BID [facility] Last Admin: 10/07/19 08:22 Dose: 2 tablet Documented by: Sodium Chloride () 10 - 40 ml IV UD PRN PRN Reason: SALINE FLUSH Last Admin: 10/06/19 17:12 Dose: 10 ml Documented by: Tramadol HCl (Ultram) 50 - 100 mg PO Q6H PRN PRN PRN Reason: Pain Score 4-10/10 Last Admin: 10/07/19 05:32 Dose: 50 mg Documented by: Medical Necessity - Tobacco Use Smoking Status: Former smoker Assessment/Plan This is a 58 years old female patient underwent minimally invasive right direct anterior total hip replacement for right hip osteoarthritis and I am seeing this patient for follow-up after consultation for postoperative medical management. #1 status post minimally invasive right total hip replacement: This was done for right hip osteoarthritis. Postoperative day day 1, she is on IV morphine and tramadol as needed for pain. Pain is well controlled, patient is ambulating. Blood pressure/elevated, other vital signs are stable. Repeat routine blood work reviewed, remarkable for mild leukocytosis which is likely reactive, otherwise unremarkable. Orthopedic surgery on the case. From medical standpoint, patient can be discharged, no changes to her home medications. #2 hypertension: Blood pressure slightly diminished, continue HCTZ, Coreg and losartan. #3 asthma: Clinically stable, pulse ox is maintained on room air. She is on albuterol [id number] and as needed as well as Pulmicort twice daily. #4 anxiety/depression: Stable, continue Lexapro. #5 prediabetes: Blood sugar has been in the range of 200s because she received IV dexamethasone. Hemoglobin A1c was 6.2 last month. She is on sliding scale. #6 DVT prophylaxis: She is on aspirin twice a day. This note was generated with [employer] dictation software. It may contain incorrect words, spelling, and punctuation that were not noted in checking the note before signing. Code Visit Inpatient E&M: 62177 Subs Hosp L2
[2019-10-07] MEDS: Fluticasone 0.05% 1 SPRAY NASAL.SRY 2 SPRAY NASAL (11:11)
[2019-10-07 11:21] LABS: Bedside Glucose 155 mg/dL (70-110)
[2019-10-07 16:06] LABS: Bedside Glucose 169 mg/dL (70-110)
[2019-10-07 16:07] VITALS: BP 140/63; PULSE 72; RESP 16; TEMP 36.4; O2SAT 95
== END 2019-10-07 18:04 | disposition home or self-care (01) | DRG 470 ==
LOC: ACINP 06:38 → MS3 11:59
PROVIDERS: Admitting Provider Specialist; Family Provider Family Medicine; PCP Family Medicine; Referring Provider Specialist; Visit Provider Specialist
PROC: 0SR90JA Replacement of Right Hip Joint with Synthetic Substitute, Uncemented, Open Approach (ICD-10-PCS; CPT 27284; principal; 2019-10-06 08:50)
DX: M16.11 Unilateral primary osteoarthritis, right hip (principal); I10 Essential (primary) hypertension; G47.33 Obstructive sleep apnea (adult) (pediatric); J44.9 Chronic obstructive pulmonary disease, unspecified; E11.9 Type 2 diabetes mellitus without complications; J45.50 Severe persistent asthma, uncomplicated; F32.9 Major depressive disorder, single episode, unspecified; H40.9 Unspecified glaucoma; M79.7 Fibromyalgia; Z96.642 Presence of left artificial hip joint; Z87.891 Personal history of nicotine dependence
CPT/HCPCS: 36415; 73501; 73502; 76000; 80048; 82962; 83036; 85025; 85027; 87081; 94640; 97110; 97116; 97162; 97166; 97530; 99251; C1776; J7120; A4216; G0463; J2405

== ENCOUNTER → 2019-11-04 14:43 | Outpatient (CLI) | payer OTHER, SELFPAY ==
[2019-11-03 14:13] VITALS: BMI 42.9
== END ==
PROVIDERS: Family Provider Family Medicine; PCP Family Medicine; Referring Provider Internal Medicine Critical Care Medicine; Visit Provider Internal Medicine Critical Care Medicine
DX: J44.9 Chronic obstructive pulmonary disease, unspecified (principal)
CPT/HCPCS: 87070; 87205

== ENCOUNTER → 2020-01-07 10:37 | Outpatient (CLI) | payer BC, SELFPAY ==
[2019-11-22 13:18] VITALS: BMI 43.4
[2020-01-07 11:51] LABS: Erythrocyte Sedimentation Rate 31 mm/hr (0-30)
[2020-01-07 11:53] LABS: Absolute Lymphocyte Count 2.02 X10^3/uL (0.83-4.51); Absolute Neutrophil Count 4.4 X10^3/uL (2.0-7.7); Basophil# 0.08 X10^3/uL; Basophil% 1.1 % (0-1); Eosinophil# 0.21 X10^3/uL; Eosinophils% 2.9 % (0-5); Hemoglobin 12.5 g/dL (12.0-15.0); Lymphocyte # 2.02 X10^3/ul (4.0); Lymphocyte % 28.1 % (19-41); Mean Corp Hgb Conc 31.3 g/dL (32-36); Mean Corpuscular Hgb 26.4 pg (27.0-32.0); Mean Corpuscular Volume 84.4 fL (81-99); Mean Platelet Vol. 9.6 fl (6.2-12.0); Monocyte# 0.49 X10^3/uL; Monocyte% 6.8 % (0-10); NRBC Flagged by Analyzer 0 % (0-5); Neutrophil # 4.35 X10^3/uL (2.7-7.7); Neutrophil % 60.7 % (47-70); Platelet Count 313 K/mm3 (150-450); RBC Distribution Width CV 13.2 % (11.6-14.6); RBC Distribution Width SD 40.7 fl (35.1-43.9); Red Blood Count 4.74 M/mm3 (4.2-5.4); White Blood Count 7.2 K/mm3 (4.4-11.0)
[2020-01-07 12:15] LABS: CRP 6.09 mg/L (0.0-3.0)
== END ==
PROVIDERS: PCP Family Medicine; Referring Provider Physician Assistant Surgical; Visit Provider Physician Assistant Surgical
DX: Z96.641 Presence of right artificial hip joint (principal)
CPT/HCPCS: 36415; 85025; 85652; 86140

== ENCOUNTER → 2020-06-06 14:41 | Outpatient (CLI) | payer BC, SELFPAY ==
[2020-06-06 13:50] VITALS: BMI 47.4
[2020-06-06 17:03] LABS: Absolute Lymphocyte Count 1.91 X10^3/uL (0.83-4.51); Absolute Neutrophil Count 4.6 X10^3/uL (2.0-7.7); Basophil# 0.08 X10^3/uL; Basophil% 1.1 % (0-1); Eosinophil# 0.23 X10^3/uL; Eosinophils% 3.1 % (0-5); Hematocrit 41.2 % (37-47); Hemoglobin 12.7 g/dL (12.0-15.0); Lymphocyte # 1.91 X10^3/ul (4.0); Lymphocyte % 25.4 % (19-41); Mean Corp Hgb Conc 30.8 g/dL (32-36); Mean Corpuscular Hgb 26.6 pg (27.0-32.0); Mean Corpuscular Volume 86.4 fL (81-99); Monocyte# 0.65 X10^3/uL; Monocyte% 8.6 % (0-10); NRBC Flagged by Analyzer 0 % (0-5); Neutrophil # 4.61 X10^3/uL (2.7-7.7); Neutrophil % 61.3 % (47-70); Platelet Count 298 K/mm3 (150-450); RBC Distribution Width CV 14.1 % (11.6-14.6); RBC Distribution Width SD 44.1 fl (35.1-43.9); Red Blood Count 4.77 M/mm3 (4.2-5.4); White Blood Count 7.5 K/mm3 (4.4-11.0)
[2020-06-06 17:25] LABS: ALB/GLOB Ratio 0.8 RATIO (0.9-2.4); AST(SGOT) 21 U/L (15-37); Alanine Aminotransfer ALT/SGPT 31 U/L (13-56); Albumin, Serum 3.5 g/dL (3.2-5.0); Alkaline Phosphatase 87 U/L (45-117); Anion Gap 1 (5-15); BUN 15 mg/dL (7-18); BUN/Creat Ratio 18.2 RATIO (10-20); Calcium,Total 8.7 mg/dL (8.5-10.1); Chloride 103 mmol/L (98-107); Cholesterol 211 mg/dL (200); Creatinine, Serum 0.82 mg/dL (0.55-1.02); EST Glomerular Filtration Rate 75 mL/min (>60); Est Glom Filt Rate - Afr Amer 91 mL/min (>60); Globulin 4.4 g/dL (2.2-4.2); Glucose 147 mg/dL (74-106); High Density Lipoprotein 28 mg/dL; Potassium 3.9 mmol/L (3.5-5.1); Protein, Total 7.9 g/dL (6.4-8.2); Sodium Level 139 mmol/L (136-145); Triglycerides 302 mg/dL; Very Low Density Lipoprotein 60 mg/dL (5-40)
[2020-06-06 17:37] LABS: Hemoglobin A1c 7.3 % (3.8-5.6)
== END ==
PROVIDERS: PCP Internal Medicine; Referring Provider Internal Medicine; Visit Provider Internal Medicine
DX: R73.03 Prediabetes (principal); E78.5 Hyperlipidemia, unspecified; F41.9 Anxiety disorder, unspecified; I10 Essential (primary) hypertension; F32.9 Major depressive disorder, single episode, unspecified
CPT/HCPCS: 36415; 80053; 80061; 83036; 85025

== ENCOUNTER → 2020-06-13 08:07 | Outpatient (CLI) | payer BC, SELFPAY ==
[2020-06-05 08:39] VITALS: BMI 47.4
[2020-06-06 13:50] VITALS: BMI 47.4
--- NOTE | 2020-06-13 08:09 | CT_ITS ---
STUDY: CT MAXILLOFACIAL SINUSES REASON FOR EXAM: Female, 59 years old. SINUSITIS X YEARS RADIATION DOSAGE (If Supplied By Facility): CTDIvol = ( 33.45 ) mGy, DLP = ( 755.46 ) mGycm TECHNIQUE: The patient was scanned in a multi detector CT scanner. High resolution axial imaging was performed without the administration of intravenous contrast material. Sagittal and coronal images were reconstructed. Individualized dose optimization techniques were used for this CT. COMPARISON: None. FINDINGS: FRONTAL SINUSES: Normal aeration, without mucosal inflammatory disease. ETHMOIDAL SINUSES: There is mild opacification of the anterior left ethmoid air cells. The right ethmoid air cells are clear. MAXILLARY SINUSES: There is mild bilateral maxillary sinus chronic mucosal thickening. SPHENOIDAL SINUSES: Normal aeration, without mucosal inflammatory disease. There is left greater than right mucoperiosteal thickening and narrowing of the ostiomeatal unit. There is normal uncinate processes, ethmoid bullae, and hiatus semilunaris. Normal bilateral middle turbinates. Normal bilateral inferior turbinates. Normal midline nasal septum. There is patency of the bilateral nasal airways. The visualized osseous structures are normal. The visualized bilateral orbital contents are normal. CT/Sinus/Facial Bone IMPRESSION: Left greater than right mucoperiosteal thickening and narrowing of the ostiomeatal unit. Mild bilateral maxillary sinus chronic mucosal thickening. Mild opacification of the anterior left ethmoid air cells. Electronically Signed: Cory Thomas, at 15:27 EDT Tel , Service support ,
== END ==
PROVIDERS: PCP Internal Medicine; Referring Provider Otolaryngology; Visit Provider Otolaryngology
DX: J32.2 Chronic ethmoidal sinusitis (principal)
CPT/HCPCS: 70486

== ENCOUNTER 2020-06-16 09:00 | Outpatient (RCR) | payer BC, SELFPAY ==
--- NOTE | 2020-06-16 09:00 | BH.SGPN.GN ---
Behaviors/Verbalizations/Mental Status: [] Eye contact is good. Motor activity is appropriate. Appearance is casual. Speech is Appropriate. Mood is depressed. Affect is flat. Thoughts are linear and logical. No evidence of psychosis. Reviewed daily check in sheet and no reports of suicidal ideations or intent. Client Response/Progress/Benefit: [] Pt participated at times during group discussion. Shared with the group that this is her first IOP session. Tearful when checking. States that she has a great deal of fear, anxiety, stress, and depression. Shared that she is overwhelmed with responsibilities and expectations. 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 Joined [facility] to learn coping skills. Group provided support and encouragement. No progress noted as this was first group. Will continue in IOP to prevent decompensation, learn coping skills, and stabilize emotions. Narrative Note: []
[2020-06-16 09:50] VITALS: BMI 43.4
--- NOTE | 2020-06-16 10:00 | BH.SGPN.GN ---
Behaviors/Verbalizations/Mental Status: []Client alert and oriented, casual appearance. Eye contact good. Motor activity appropriate. Speech within normal limits. Affect unable to gather due to wearing a mask for COVID, mood anxious and depressed. Thoughts linear, logical, no signs of hallucinations or delusions. Client Response/Progress/Benefit: []Client responded well to session, attentive during discussion and engaged during the activity. Client connected with the quote and stated that change makes her anxious and client associates change with problems. Group reported even though change can be scary, change can be positive. Worked with the group to identify barriers to making change, which included: toxic supports, lack of resources and money, lack of time, cognitive distortions, and fear of failure. Client reported sometimes people do not know they need to make changes until their supports help them gain awareness. Client participated in the activity where they identified and discussed the emotions related to change. Benefited from increased awareness and understanding of emotions, benefits, and barriers related to change. First day of IOP tx. Will continue IOP tx to prevent decompensation, increase awareness of healthy coping skills, and improve mood stability. Narrative Note: []
--- NOTE | 2020-06-16 11:14 | BH.SGPN.GN ---
Behaviors/Verbalizations/Mental Status: [] Client alert and oriented, casually dressed and groomed. Eye contact good. Motor activity appropriate. Speech within normal limits. Affect unable to gather due to wearing a mask for COVID-19 protocol, mood anxious, depressed. Thoughts linear, logical, no signs of hallucinations or delusions. Client Response/Progress/Benefit: []Client new to IOP program, was an active participant throughout AEB actively listening, providing some input, taking notes. Client attentive during discussion on the change process and review of emotions one might experience throughout the process of change. Expressed feeling she has been in each stage of change at various points in her life. Client indicated excitement and anxiety as emotions she has associated with change in the past. Client benefited from working with the group to identify potential strategies for promoting healthy change behaviors. Identified wanting to make more of an effort to use positive self-talk to continue to encourage her to move towards desired change. Shared this will help challenge negative mindset when faced with setbacks. Recommended continued IOP tx to prevent decompensation, increase insight, and improve healthy coping skill repertoire. Narrative Note: []
--- NOTE | 2020-06-20 10:05 | BH.SGPN.GN ---
Behaviors/Verbalizations/Mental Status: []Client alert and oriented, neatly dressed and groomed. Eye contact good. Motor activity appropriate. Speech within normal limits. Affect unable to gather due to wearing a mask for COVID-19 protocol, mood euthymic. Thoughts linear, logical, no signs of hallucinations or delusions Client Response/Progress/Benefit: []Client was an active participant as shown by contributing to discussion. Client shared connecting to group topic of self-care and commented that self-care is important, but she often focuses more on ?shining brightly for others? instead for herself. Client helped the group discuss the costs of not practicing self-care which included: poor functioning, increased depression and anxiety, poor memory, lack of concentration, more negative thinking, and harms relationships. Participated in the discussion of the common myths about self-care including: ?one and done,? selfish, not a big deal, makes a person look weak, and not having time. Client participated in the discussion on debunking of these myths. Client shared that self-care is needed in order to be a good support for others. Client seemed to benefit from increased awareness of the importance of self-care and challenging common myths that prevent practicing self-care. Will continue IOP tx to further decrease intensity of symptoms that impair functioning and to reduce cognitive distortions that impact self-worth. Narrative Note: []
--- NOTE | 2020-06-20 11:14 | BH.SGPN.GN ---
Behaviors/Verbalizations/Mental Status: [] Client alert and oriented, casual dress, hygiene tended to. Eye contact good. Motor activity appropriate. Speech within normal limits. Affect could not be assessed due to pt wearing a mask for COVID-19 safety precautions. mood anxious and depressed. Thoughts linear, logical, no signs of hallucinations or delusions. Client Response/Progress/Benefit: [] Client remained an active participant AEB pt providing input during session, listening attentively to others, and willing to complete self-assessment worksheet. Contributed to group discussion on various areas of self-care, benefits, and types of self-care activities for each area. Client completed activity in which she assessed her own utilization of the different areas of self-care and was able to identify current practices she actively uses, as well as areas she can improve upon. Client reported she can improve her emotional, physical, and social self-care. Stated she could begin to do so by setting aside an area in her house designated for self-care and communicate with her supports not to interrupt when client is in that area. Client appeared to benefit from increasing awareness of how she can improve self-care balance. Progress noted as client has been able to increase self-awareness and begin to learn healthy coping skills, though continues to appear to struggle with distorted thoughts associated with her own self-worth . Will continue IOP tx to increase utilization of healthy coping skills, challenge negative thoughts, and prevent decompensation. Narrative Note: []
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
--- NOTE | 2020-06-21 10:10 | BH.SGPN.GN ---
Behaviors/Verbalizations/Mental Status: []Client alert and oriented, casual dress, hygiene tended to. Eye contact good. Motor activity appropriate. Speech within normal limits. Affect unable to assess as pt wearing a mask per COVID-19 protocol, mood dysthymic. Thoughts linear, logical, no signs of hallucinations or delusions. Client Response/Progress/Benefit: []Pt responded well to session AEB contributing to discussion. Pt appeared to connect well with the topic of resilience and client shared belief that a person can learn to become more resilient. Pt worked with the group during discussion of the costs of resisting change and the benefits of adapting to adversity. Pt defined resilience as the ability to get through something without letting it overcome a person. Attentive during psychoeducation on various dick factors in developing personal resilience. Pt contributed during group discussion identifying benefits of each factor in fostering resilience. Pt seemed to benefit from increasing awareness of strategies to increase personal resilience and the impacts of resilience on managing mental health sx. Progress noted as client is highly engaged in group sessions. Will continue IOP tx to prevent decompensation, increase healthy coping skills, and reduce negative thinking. Narrative Note: []
--- NOTE | 2020-06-21 10:19 | BH.PSY.EVA_ITS ---
Initial Treatment Plan - Patient Information Visit Information: ADMISSION DATE: EXPECTED LOS: 4-6 weeks - Problems/Symptoms Problem #1:: Depression Symptom:: Sadness, crying, anhedonia, hopelessness, worthlessness, fleeting lois cidal ideation Problem #2:: Anxiety Symptom:: Rumination, restlessness, worry, panic attacks
--- NOTE | 2020-06-21 10:35 | BH.NA_ITS ---
Physical Data - Vital Signs Pulse Rate: 97 Respiratory Rate: 20 Blood Pressure: 146/64 - Height/Weight Height: 1.68 m Weight:: 136.078 kg Weight in Pounds: 300.0 lbs Current Medication Compliance - Medication Compliance Do you take your medication as prescribed?: Yes Nutritional History - Appetite Nutritional Instructions:: If client shows signs of a swallowing problem, weight change of 10 pounds or more in the last month, or is on a diabetic diet, the physician will review and request a dietitian consult, as appropriate. All unintentional weight loss will be referred to the physician for decision on need for dietitian consult. Describe your appetite:: Good Additional nutritional information:: Client states I always feel hungry. States she has gained about 40lbs in the last 5 months. Functional Assessment - Sleep Pattern Describe any problems with sleeping: Client states she sleeps about 6 hours per night. - Activities Motor Activity:: Functional Sensory/Communication Assess - Communication Problems Do you have difficulty understanding what people are saying?: No What is your primary language?: Slovak Medical Problems/History - Cardiac Conditions Cardiovascular: Hypertension, Hyperlipidemia Comments:: history of vasovagal syncope with coughing episodes. 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 If so, list type and date:: Yes - bilat hip replacements, heart cath, thyroid cyst removed Substance Abuse - Substance Abuse Please describe substance abuse in the last 30 days:: Client states she drinks alcohol very rarely socially. Client states she quit smoking cigarettes in 1987 when she was with her son. Client reports occasional marijuana use, stating last use was at a republican in 2017. Client states she drinks 4-5 cups of c offee per day. Mental Status Summary - Mental Status Significant Findings/Observations on Appearance and Mood:: Client is alert and oriented x 4. Client is casually groomed. Client is cooperative and makes fair eye contact during assessment. Client with audible breathing effort; client uses several medications for her asthma. Client is wearing a mask due to pandemic. Clients voice rate and volume is normal. Client appears mildly depressed and anxious. Client denies delusions/hallucinations. Client denies SI at this time. Suicide Assessment - Suicidal Ideation Are you currently or have you been suicidal in the past?: Yes - past SI, denies at this time Suicidal Intentional Rating Scale (SIRS): Suicidal thoughts (past) Physician Notification: If Active suicidal thoughts/Will not contract for safety is checked, contact physician and document in the Physician Notification section below. Past Psychiatric History - MH Treatment Hx Past Psychiatric Medications:: Prozac, Lexapro, Xanax Age of first mental health symptoms: Client states she was first diagnosed with depression in 2017. Describe (age, circumstance, etc) any past hospitalizations: None. Current providers for mental health treatment (counselor, psychiatrist, case management coordinator, etc.): None. Fall Risk Assessment - Age Age: 60-70 - Mental Status Mental Status: Willing & able to ask for assistance when needed - Physical Status Physical Status: Limb, dizziness, syncope, neurological - Impairments Impairments: None - Elimination Elimination: Continent AND independent - Gait or Balance Gait or Balance: Walks independently - Hx of Falls History of falls in the past 6 months: No known history - Medications/Substances Psychotropics:: Antidepressants Others:: Antihypertensives, Diuretics Medications/substances used within the past 24 hours or ordered to administer: 3 or more of the medications/substances listed above - Total Score Total Points:: 5 RN Summary of Impressions - Impressions Recommendations: Include psychiatric and medical issues, treatment planning recommendations, and discharge planning needs. Impressions: Psychiatric Issues: major depressive disorder, recurrent, severe w ithout psychosis. Generalized anxiety disorder. Impression: General Medical Conditions: Client has been a pre-diabetic and been on Metformin at times in the past when she was taking steroids for asthma. Client had a recent A1C of 7.3 and was prescribed Metformin again. Client states she has been to the dietitican before about her diet. Discussed diabetic information with client. This nurse will get diabetic education about diet, self care, and information about hyperglycemia and hypoglycemia to give to therapist to be given to client. - Level of Care How do the client's current symptoms and functional deficits support need for this level of care?: Client reports that her feelings of depression and anxiety have gotten much worse since about September of 2019. Client reports some panic attacks with shortness of breath, crying, feeling week, and chest pain. Client reports her last panic attack was in the beginning of May. Client reports feelings of sadness after losing her job earlier this year and reports conflict with her and her [id number] that she lives with and being expected to care for her 2 year old grandson that lives in the home. Client reports feeling suicidal at the beginning of this month, but denies SI at this time. Client reports feelings of hopelessness, restlessness, anhedonia, feeling overwhelmed, and crying spells. IOP will promote gains and prevent further decompensation while providing social support and skills training.
[2020-06-21 10:47] VITALS: BP 146/64; PULSE 97; RESP 20
--- NOTE | 2020-06-21 11:10 | BH.SGPN.GN ---
Behaviors/Verbalizations/Mental Status: [] Eye contact is good. Motor activity is appropriate. Appearance is casual. Speech is Appropriate. Mood is anxious. Affect is congruent. Thoughts are linear and logical. No evidence of psychosis. Client Response/Progress/Benefit: [] Pt was an active participant in group discussions and activity. Attentive during psychoeducation. In pt's small group they looked at defining and discussing how the certain building blocks of resiliency (making connections, avoid seeing crises as insurmountable, accept that change is a part of living, move toward your goals, and take decisive action) help one be self-reliant. Pt believes that she is best at taking decisive actions and set a goal to work on improve her keeping things in perspective and maintaining a hopeful outlook to increase her resilience. Progress noted. Pt benefited from education on the 10 building blocks of resilience and was able to identify areas to work on to improve resilience. Will continue in IOP to prevent decompensation, improve functioning, and learn more effective coping skills. Narrative Note: []
--- NOTE | 2020-06-22 09:03 | BH.SGPN.GN ---
Behaviors/Verbalizations/Mental Status: []Client alert and oriented, casually dressed and groomed. Eye contact good. Speech soft. Motor activity appropriate. Wearing a mask, but affect congruent to mood-tearful. Mood depressed and anxious. Thoughts linear, no signs of hallucinations or delusions. Reviewed client's symptoms tracker which indicated 0/5 for thoughts of suicide and 0/5 for risk. Client Response/Progress/Benefit: []Client responded well to session, providing supportive statements and attentive. Client reports feeling apprehensive this morning because client is worried about how she will respond tomorrow without having the structure of group. Group offered supportive statements and encouraged client to attend IOP more if she needs to. Client shared it feels good to be here, but when I'm out there it's like I go back to start. Client stated she used opposite action today because she wanted to isolate. Client also accomplished her gameplan from previous group which was to write down everything she accomplished. Client shared she had some distorted thoughts while writing these, but the group helped client challenge these. Appeared to benefit from connecting with peers and challenging negative thinking in the moment. Will continue IOP tx to prevent decompensation, reduce negative thinking, and improve daily functioning. Narrative Note: []
--- NOTE | 2020-06-22 10:15 | BH.SGPN.GN ---
Behaviors/Verbalizations/Mental Status: []Client alert and oriented, casually dressed and appropriately groomed. Eye contact good. Motor activity restless. Speech within normal limits. Affect could not be assessed due to pt wearing a mask as a requirement during COVID-19 pandemic. mood dysthymic. Thoughts linear, logical, no signs of hallucinations or delusions. Client Response/Progress/Benefit: []Pt was an active participant AEB pt providing input throughout discussion and attentively listening to peers. Pt connected with having a negative perspective can keep you stuck and leads to no personal growth. Pt worked with group to identify how negative perspective can impact mental health which included: self-fulfilling prophecy, staying stuck, increase depression, and increase anxiety.?Pt appeared to benefit from increasing understanding of mental health benefits of a positive perspective and potential consequences to progress when perspective is negative. Pt to continue IOP level of care to continue use of healthy coping, challenge negative thought patterns, and prevent decompensation. Narrative Note: []
--- NOTE | 2020-06-22 11:14 | BH.SGPN.GN ---
Behaviors/Verbalizations/Mental Status: [] Client alert and oriented, casually dressed, hygiene appeared to be tended to. Eye contact good. Motor activity appropriate. Speech within normal limits. Affect unable to assess as pt wearing a mask per hospital COVID-19 protocol, mood dysthymic and anxious. Thoughts linear, logical, no signs of hallucinations or delusions Client Response/Progress/Benefit: []Client responded well to session, attentive and sharing as well as asking questions throughout session. Group discussed the mental health consequences of not acknowledging one?s strengths and benefits in actively doing so. Connected with the benefits of recognizing personal strengths on improving mental health which included: increased self-confidence, increased willingness to try new things, improved relationships, and increased resilience. Client able to identify personal strengths she possesses which includes: empathy, creativity, love, and kindness. Group discussed how personal strengths can help client make progress for mental health and identified strategies to help them acknowledge strengths more often. Client noted she often becomes too overwhelmed and struggles to focus which impacts ability to effectively use strength of creativity. Identified that scheduling a set time and location to express creativity without distraction as a strategy to improve use of strengths. Appeared to benefit from recognizing personal strengths and identifying strategies to increase recognition of strengths. Will continue IOP tx to prevent decompensation, better use healthy coping skills, and increase self-esteem. Narrative Note: []
== END 2020-06-26 23:59 ==
LOC: BHIOP 09:00
PROVIDERS: PCP Internal Medicine; Referring Provider Psychiatry & Neurology Psychiatry; Visit Provider Psychiatry & Neurology Psychiatry
DX: F33.2 Major depressive disorder, recurrent severe without psychotic features (principal); F41.8 Other specified anxiety disorders; G47.33 Obstructive sleep apnea (adult) (pediatric); E66.01 Morbid (severe) obesity due to excess calories; J45.909 Unspecified asthma, uncomplicated; Z62.810 Personal history of physical and sexual abuse in childhood; Z62.811 Personal history of psychological abuse in childhood; F17.210 Nicotine dependence, cigarettes, uncomplicated; Z79.899 Other long term (current) drug therapy
CPT/HCPCS: H0035; 90837; 90853

== ENCOUNTER 2020-06-27 09:00 | Outpatient (RCR) | payer BC, SELFPAY ==
[2020-06-27 00:52] VITALS: BP 146/64; PULSE 97; RESP 20
--- NOTE | 2020-06-27 09:03 | BH.SGPN.GN ---
Behaviors/Verbalizations/Mental Status: [] Client alert and oriented, casually dressed and groomed. Eye contact good. Motor activity appropriate. Speech within normal limits. Affect unable to gather due to wearing a mask for COVID-19 protocol, mood anxious. Thoughts linear, logical, no signs of hallucinations or delusions. Reviewed client?s symptom tracker, no risk for suicidal ideation, plan, or intent as of 06/27/20. Client Response/Progress/Benefit: [] Pt responded well to session, engaged and willing to process with group. Reports feeling ?anxious today and expressed that this is related to current stressor of setting boundaries with her son and [id number] who live with her. Noted that they often have different expectations as to how the responsibilities in the house should be distributed and pt ends up dong much of the work around the house. Did well to challenge these thoughts and appeared to benefit from supportive suggestions for increasing use of assertive communication provided by the group. Discussed current wins include completing her goal to organize her closet as well as doing some thought challenging when becoming agitated by her grandson. Progress noted in improved use of healthy emotion regulation skills though pt continues to struggle with boundaries and effective communication. Will continue IOP tx to continue to promote healthy change behaviors, improve communication, reduce anxiety and depression, and prevent decompensation. Narrative Note: []
--- NOTE | 2020-06-27 10:20 | BH.SGPN.GN ---
Behaviors/Verbalizations/Mental Status: []Client alert and oriented, casually dressed and groomed. Eye contact good. Motor activity appropriate. Speech within normal limits. Affect unable to gather due to client wearing a mask. Mood anxious and irritable. Thoughts linear, logical, no signs of hallucinations or delusions. Client Response/Progress/Benefit: []Client responded well to session, engaged and contributed throughout session. Client listened during group discussion on importance of managing emotions on continued mental health and wellness. Client shared when she does not express her emotions well, she ends up ?blowing up? which hurts others and sabotages client. Group identified barriers emotions can cause during communication. These barriers included: jumping topics, irrational thinking, shutting down, name-calling, and passive-aggressive behaviors. Client participated in the challenge activity and did well to remain calm and positive despite running into barriers. Expressed experiencing some frustration at self and empathy towards peers ?because they kept trying.? Client reported she was able to cope with her frustration by focusing on empathy. Client appeared to benefit from increasing awareness of how emotions can impact mental health and practicing in the moment coping skills. Progress noted in client?s self-report of practicing coping skills outside IOP. Will continue IOP tx to prevent decompensation, reduce negative self-talk, and improve emotional regulation. Narrative Note: []
--- NOTE | 2020-06-27 11:22 | BH.SGPN.GN ---
Behaviors/Verbalizations/Mental Status: []Client alert and oriented, casually dressed and appropriately groomed. Eye contact fair. Motor activity appropriate. Speech within normal limits. Affect could not be assessed due to pt wearing a mask as a requirement during COVID-19 pandemic. mood dysthymic and anxious. Thoughts linear, logical, no signs of hallucinations or delusions. Client Response/Progress/Benefit: []Client engaged in session AEB client providing input during discussion and completing worksheet. Attentive during psychoeducation on 4 zones of regulation. Client able to identify feelings and behaviors for each zone. Client reported when she is in the blue zone she tends to isolate, increased sleep, crying and decreased self-care. Group identified coping skills one can use to support self in each zone which included: opposite action, exercise, positive self-talk, upbeat music, self-care, thought challenge and grounding. Client reported she will practice the skills of journaling, setting goals, and thought challenge. Benefited from increased education on zones of regulation or stages of alertness for emotions and healthy coping skills to use for each zone. Will continue IOP tx to continue use of healthy coping skills, challenge negative thought patterns and prevent decompensation. Narrative Note: []
--- NOTE | 2020-06-28 09:02 | BH.SGPN.GN ---
Behaviors/Verbalizations/Mental Status: []Client alert and oriented, neatly dressed and groomed-wearing earrings. Eye contact good. Motor activity appropriate. Speech within normal limits. Affect unable to gather due to wearing a mask for COVID-19 protocol, mood euthymic. Thoughts linear, logical, no signs of hallucinations or delusions. Reviewed client?s symptom tracker, no risk for suicidal ideation, plan, or intent as of 06/28/20. Client Response/Progress/Benefit: []Client responded well to session, attentive and offering supportive statements to peers. Client reports feeling better than yesterday, excited, and apprehensive this morning. Client shared her gameplan from yesterday was to journal and practice positive self-talk. client reported she has not done well with journaling in the past because I only focus on the negative. A peer gave client feedback on what has helped them journal and client was receptive and reports that seems like a great idea. Client reported she used opposite action yesterday by making dinner and organizing her bookshelf. Client also wrote two letters to send to friends which was positive. Client's stressor today is that she continues to struggle with feelings of resentment and guilt. Appeared to benefit from reflecting on her application of coping skills. Progress noted in client's self-report of an improved mood today and less isolative behaviors. Will continue IOP tx as client's depression and anxiety continue to impair functioning and client can further decrease negative thinking. Narrative Note: []
--- NOTE | 2020-06-28 10:12 | BH.SGPN.GN ---
Behaviors/Verbalizations/Mental Status: []Client alert and oriented, casually dressed and appropriately groomed. Eye contact fair. Motor activity appropriate. Speech within normal limits. Affect could not be assessed due to pt wearing a mask as a requirement during COVID-19 pandemic. mood dysthymic. Thoughts linear, logical, no signs of hallucinations or delusions. Client Response/Progress/Benefit: []Client was an engaged participant AEB client contributing thoughts throughout discussion and participating in activity. Client stated the right path is when you go home and cook your meal, but the easy path is going through fast food drive thru. Pt stated the right path sometimes takes more time. Pt reported some days you have a hard time moving forward and just choose to stay stuck by staying in bed all day. Pt reported she has fear of success because people might expect her to perform at the same level ?all the time?. Client helped the group discuss barriers that keep them stuck from choosing a healthier path to mental wellness. These barriers included: external stressors, comfort, lack of awareness, temptations, family and friends, and distortions. Group worked together to identify examples of personal pitfalls which included: depression, anxiety, lack of self-care, holding in emotions, avoidance, no motivation, and not communicating with supports. Engaged during the activity and did well to manage own emotions throughout. Benefited from increased awareness on the impact that pitfalls can have on mental health. Will continue IOP tx to challenge distorted thoughts, increase healthy coping, and prevent decompensation. Narrative Note: []
--- NOTE | 2020-06-29 11:15 | BH.SGPN.GN ---
Behaviors/Verbalizations/Mental Status: [] Client alert and oriented, casually dressed and groomed. Eye contact good. Motor activity appropriate. Speech within normal limits. Affect unable to gather due to client wearing a mask for COVID-19 protocol, mood euthymic/anxious. Thoughts linear, logical, no signs of hallucinations or delusions. Client Response/Progress/Benefit: [] Client receptive of session, engaged throughout AEB client participating in discussion, asking questions, and listening to others. Processed activity with group and connected it to overcoming personal pitfalls in life. Provided personal example related to difficulties with setting boundaries at home. Client completed a worksheet where she identified personal pitfalls impacting mental health progress. Identified pitfalls as: poor boundaries, difficulty prioritizing, fear of ?looking bad in other?s eyes?, ?not being nice to myself?, and negative thoughts. Attentive and contributing during group brainstorm of strategies to overcome pitfalls. Client stated she will work on the pitfall of prioritizing needs better. Client stated she will work on this by creating a game plan for herself and asking ?what really needs to get done first?. Benefited from identifying personal pitfalls and strategies to overcome these pitfalls. Progress noted in self-report of reduced depression and improved emotion regulation, though continues to struggle in these areas. Client to continue IOP level of care to improve mood stability, continue to promote healthy change behaviors, and improve daily functioning. Narrative Note: []
--- NOTE | 2020-06-29 14:50 | BH.MDN_ITS ---
Multi-Disciplinary Note - Note 60-min Individual Time Started:: 08:58 Date: 06/29/20 Purpose of session/treatment goals addressed:: The purpose of this session was to address current symptoms, stressors, and triggers. Another goal was to teach client the different types of cognitive distortions and how they impact emotions/ behaviors. Other topics included: trauma's impact on view of self. Eye Contact:: Good Motor Activity:: Appropriate Appearance:: Neat Speech:: Appropriate, Rambling - at times Mood:: Anxious Affect:: Congruent - tearful at times. Thoughts:: Linear, Logical, No evidence of hallucinations/delusions noted Staff Interventions:: Therapist used open-ended questions and active listening while providing a safe space for client to process and verbalize her emotions, symptoms, and stressors. Therapist reviewed client?s application of coping skills and experience so far in [facility]. Therapist provided psychoeducation on the different types of cognitive distortions and went through all of them with client. Therapist helped client set a goal to clean part of her desk this week. Client Response:: Client responded well to session, open to meeting with therapist. Client shared she has been connecting with peers in [facility] and enjoys the topics so far. Client put up affirmations in her home to help combat negative self-talk, but she shared this does not always work. Client receptive to learning more about distorted thought patterns. Client and therapist read through and reviewed the different types of cognitive distortions and how these distortions impact client. Client connected with disqualifying the positives, catastrophizing, minimizing, personalizing, labeling, and shoulds the most. Client reported disqualifying the positives has stopped me from liking myself. Client stated she often uses phrases such as should, ought, and must which makes client feel like she is constantly on guard and has to be perfect. Client reported she notices that when she is around men, client feels like I always have to please them. Client acknowledges that this belief likely stems from childhood when client constantly had to be alert and please her father who was an alcoholic. Receptive and connecting to discussion of how childhood trauma impacts one's internal dialogue and core beliefs. Client became tearful several times when discussing self-talk and shared she does not want to continue to be self-depreciating. Client was provided with some basic strategies to challenge these negative thoughts. Client wanted to focus on setting goals for the weekend to help client clean her room. Client shared if her environment is clean it will positively impact client's mental health. Client shared a big goal, but then recognized the benefits of breaking this goal down to be more realistic. Client's goal today is to organize the pills on her desk and make her bed. Risks/Concerns:: Client denies any suicidal ideations, plan, or intent as of 06/29/20. Client is future oriented and reports her curiosity for life keeps client from ever hurting herself. Progress Toward Goals/Plan:: Client appears to be connecting well with peers and is engaged in group sessions. Client is responded well to learning coping skills and has been applying them outside of IOP. Client continues to endorse a depressed mood, isolative behaviors, lack of energy, increased fatigue, negative thinking, low self-worth, crying spells, ruminations, and anxiety. Client connected with how childhood trauma shapes one?s view of self. Will continue IOP tx to prevent decompensation, increase healthy coping skills, and improve daily functioning. Time Stopped:: 10:03
--- NOTE | 2020-07-05 09:04 | BH.SGPN.GN ---
Behaviors/Verbalizations/Mental Status: []Client alert and oriented, neatly casually dressed and groomed. Eye contact good. Motor activity appropriate. Speech within normal limits. Affect unable to gather due to wearing a mask for COVID-19 protocol, mood anxious, agitated. Thoughts linear, logical, no signs of hallucinations or delusions. Reviewed client?s symptom tracker, no risk for suicidal ideation, plan, or intent as of 07/05/20. Client Response/Progress/Benefit: [] Client responded well to session and willing to process with the group. Client reports feeling anxious and agitated this morning as she had not received much sleep the prior night. Discussed that she had successfully followed through with her goal of keeping an accomplishment log. Indicated that this had been ?alright? but not as satisfying as using her journal to vent as she has in the past. Receptive of discussion on balance and using her journal to process her frustrations as well as begin to utilize as a means of keeping track of the positives. Client identified wanting to improve her ability to reward herself for accomplishing her journaling more regularly by listening to music she enjoys, watching an enjoyable show, or trying a new experience. Appeared to benefit from connecting with others and reflecting on ways to better hold herself accountable. Continues to struggle with communication and maintaining healthy boundaries. Will continue IOP tx to reinforce healthy coping skills, establish healthier boundaries, and prevent decompensation. Narrative Note: []
--- NOTE | 2020-07-05 10:13 | BH.SGPN.GN ---
Behaviors/Verbalizations/Mental Status: []Client alert and oriented, casually dressed and appropriately groomed. Eye contact fair. Motor activity appropriate. Speech within normal limits. Affect could not be assessed due to pt wearing a mask as a requirement during COVID-19 pandemic. mood depressed. Thoughts linear, logical, no signs of hallucinations or delusions. Client Response/Progress/Benefit: []Client engaged throughout session AEB providing input to discussion and taking notes throughout. Connected with discussion on how coping with external crises by using unhealthy coping skills could result in a personal crisis. Group reported that it is important to have awareness of warning signs which can prevent reaching crisis point. Group identified warning signs for crisis and client completed the personal warning signs worksheet. Pt identified personal crisis warning signs to include: difficulty concentrating, ?don?t care attitude, and negative thoughts. Benefited by increasing awareness of crisis and personal warning signs. Progress noted in client increased awareness and self-report of improved overall mood. Will continue IOP tx to increase healthy coping, challenge distorted thoughts and prevent decompensation. Narrative Note: []
--- NOTE | 2020-07-05 11:14 | BH.SGPN.GN ---
Behaviors/Verbalizations/Mental Status: []Client alert and oriented, casually dressed and groomed. Eye contact fair. Motor activity appropriate. Speech quieter and softer than baseline. Affect unable to gather due to client wearing a mask for the pandemic. Mood dysthymic, Thoughts linear, logical, no signs of hallucinations or delusions. Client Response/Progress/Benefit: []Client responded well to session as evidenced by client listening attentively to others and asking questions. Client identified her warning signs for crisis and gained further awareness of earliest warning signs. Client used the warning signs: negative thinking, eating more than usual, and loss of motivation to create her crisis plan. Client created a crisis action plan to help client better manage warning signs for crisis. Client?s plan included: telling herself thoughts are thoughts not facts, delay distract decide, opposite action, drinking more water, and starting with small goals. Client reported creating a plan will help client recognize unhealthy versus healthy coping skills. Client appeared to benefit from creating a crisis action plan and increasing self-awareness. Progress noted in client?s increased self-awareness and consistent attendance. Client to continue IOP tx to decrease depressive symptoms, reduce negative thinking that reinforces low self-esteem, and improve use of healthy coping skills. Narrative Note: []
--- NOTE | 2020-07-05 12:13 | PCM.BH.PN ---
Progress Note Progress Note: History of Present Illness/Interim History: [] The patient is a 59-year-old female with a history of depression and anxiety who is seen in follow-up at the [facility] behavioral health IOP program. I last saw the patient 2 weeks ago and at that time Wellbutrin XL was added to her medication regimen. The patient states that she feels the medication is helping her. She has a little more energy and is not falling asleep during the day now. Her mood is better and she denies any hopelessness. She is still somewhat depressed but again is improved. Her mood is also less irritable. She denies any suicidal ideation whatsoever now. She denies any hallucinations or delusions or homicidal ideation. The patient discussed the stress of living with her alcoholic son and his and the patient's 2-year-old grandson. Although the patient finds this stressful, she states that she would prefer not to live alone. She loves seeing her grandson and just feels she has to negotiate the issues living with 2 other adults. She feels that she is really benefiting from the IOP program and is learning skills to help her cope. She says that her [id number] and her son have noticed that the patient is improving in her ability to handle stress. She is enjoying being with her grandson. Current Psychiatric Medications: [] Effexor XR 75 mg p.o. nightly (x4 weeks now); Wellbutrin XL 150 mg p.o. every morning (x2 weeks now). Lorazepam 0.5 mg p.o. as needed for panic attack but has not taken any since last visit. Mental Status Examination: [] The patient is a obese female who is seen wearing a mask due to the COVID pandemic. She has good hygiene and is casually dressed and groomed. She is cooperative and pleasant during the interview. She has no psychomotor agitation or retardation. Her eye contact is fair as she looks away a lot when talking about subjects that are more sensitive to her. At times she has good eye contact. Her speech is normal rate and rhythm and fluent with no pressure. Her mood is depressed but improved. Her affect is constricted but not tearful. Her thought process is goal-directed and organized. Her thought content: There is no evidence of any suicidal or homicidal ideation. No evidence of hallucinations or delusions. Judgment is intact. Insight: Some present. Impulsivity: Low. Diagnoses: [] Allison I: [] Major depressive disorder recurrent, severe without psychosis; generalized anxiety disorder Allison II: [] Deferred Allison III: [] CHARLETTE, obesity, severe asthma Allison IV:[]] Primary support, work and health issues Plan: [] Patient will continue the IOP program at [facility] as the structure, support, education, individual and group therapy will hopefully continue to benefit the patient and prevent worsening of her symptoms. She felt safe during the interview and if at any time she does not feel safe she will let us know or go to the emergency room. The risks, options, possible complications and side effects of the medications were discussed with the patient and she understands and accepts these. She will continue her medications at their current doses. No medication changes were made today. The patient did not need refills. I will see the patient in routine follow-up and she will continue to follow-up with her outpatient providers.
--- NOTE | 2020-07-05 14:09 | BH.MDN ---
Multi-Disciplinary Note - Note 60-min Individual Time Started:: 12:11 Date: 07/05/20 Purpose of session/treatment goals addressed:: The purpose of this session was to address current emotions, negative thoughts, and stressors. Another goal was to practice cognitive restructuring. Other topics included: boundary setting and prioritizing. Eye Contact:: Fair Motor Activity:: Appropriate Appearance:: Neat Speech:: Rambling, Soft Mood:: Dysthymic Affect:: Flat Thoughts:: Linear, Logical, No evidence of hallucinations/delusions noted Staff Interventions:: Therapist used active listening and open-ended questions to explore client?s current symptoms, stressors, and negative thoughts. Therapist gave client a safe place to vent her emotions. Therapist processed client?s emotions and experience with homework. Therapist helped client gain awareness of barriers that reinforce negative thinking and feeling overwhelmed. Therapist discussed barriers keeping client from setting boundaries and began to discuss what boundaries client wants to set. Therapist taught client strategies to catch and challenge distortions. Client Response:: Client responded well to session, open to meeting with therapist. Client reports she is feeling lower today and reports belief it is due to client being burnout from watching her grandson multiple days in a row. Client stated she filled out her accomplishment log from last session, but client felt torn about the exercise. Client?s accomplishment log was full, but client shared seeing all of the things she has accomplished made client feel resentment towards her son and his . Client vented her frustrations for a few minutes and was tearful. Client stated she feels like her son and his take advantage of client, but client is fearful to set boundaries with them. Client reports she has struggled to set boundaries all her life, and client acknowledges that her low self-esteem likely contributes to this. Client and therapist discussed boundaries and client shared she knows she can benefit from setting some, but client is not ready to do this yet. Client gained awareness that her negative thinking reinforces client?s low self-esteem and lack of boundaries. Client receptive to learning about T.H.I.N.K (true, helpful, irrational, negative, kind) to catch and challenge negative thoughts. Client shared ?I still am trying to learn the distortions,? so client reported belief it would be helpful to review this strategy and the distortions for homework. Client also wants to work on prioritizing her tasks to avoid client taking on too much in a day and help client be more productive. Receptive to a scaling technique suggested by therapist and willing to rate her tasks by urgency and effort needed. Risks/Concerns:: Client denies any suicidal ideations, plan, or intent as of 07/05/20. Client reports she no longer feels hopeless and she enjoys the groups. Progress Toward Goals/Plan:: Client appears to be connecting well with peers and is engaged in group sessions. Client has responded well to learning coping skills and she is consistent with completing homework. Client continues to endorse a depressed mood, isolative behaviors, lack of energy, increased fatigue, negative thinking, low self-worth, crying spells, ruminations, and anxiety. Client acknowledges that her lack of boundaries with her son and his are contributing to client?s increased mental health symptoms, but client reports not being ready to set boundaries. Will continue IOP tx to prevent decompensation, increase healthy coping skills, and improve daily functioning. Time Stopped:: 13:10
--- NOTE | 2020-07-06 09:04 | BH.SGPN.GN ---
Behaviors/Verbalizations/Mental Status: []Client alert and oriented, casually dressed and groomed. Eye contact good. Motor activity appropriate. Speech within normal limits. Affect unable to gather due to wearing a mask for COVID-19 protocol, mood stressed, anxious. Thoughts linear, logical, no signs of hallucinations or delusions. Reviewed client?s symptom tracker, no risk for suicidal ideation, plan, or intent as of 07/06/20. Client Response/Progress/Benefit: []Client responded well to session, receptive of support, and was willing to process with the group. Client reports feeling more focused this morning as she had been struggling to concentrate when in group yesterday. Noted ongoing difficulties with feeling as though she takes on the primary caregiving responsibilities in the house but not wanting to set boundaries as she feels it is her ?role? to care for her family. Client continues to struggle with identifying the benefits of boundary setting to reduce feeling overwhelmed; however, was able to recognize the importance of self-care. Shared she successfully practiced self-care last night by spending time outdoors with her grandson and watching a new show she enjoys at the end of the night. Client progress noted in improved perspective challenging, however continues to struggle significantly with negative core beliefs impacting ability to establish healthier boundaries with supports. Appeared to benefit from connecting with others and reflecting on application of coping skills. Will continue IOP tx to reinforce healthy coping skills, continue to reduce depressive sx, and prevent decompensation. Narrative Note: []
--- NOTE | 2020-07-06 11:00 | BH.SGPN.GN ---
Behaviors/Verbalizations/Mental Status: [] Client alert and oriented, casually dressed and appropriately groomed. Eye contact good. Motor activity appropriate. Speech within normal limits. Affect unable to gather due to wearing a mask during the pandemic, mood euthymic, Thoughts linear, logical, no signs of hallucinations or delusions. Client Response/Progress/Benefit: [] Client responded well to session, attentive and contributing to discussion. Group discussed benefits of healthy communication on mental health which included: getting help, better relationships, less misinterpretations, and improved emotional regulation. Group additionally discussed potential barriers to communication including: shutting down, tone of voice, assumptions, yelling, passive aggressive behaviors, and poor emotional regulation. Attentive during psychoeducation on the four communication styles. Client self-reports identifying most with the passive communication styles. Client shared she at times she feels ?frustrated, angry, and misunderstood? when she communicates. Client also stated that when she communicates her needs, ?some things in the messages get lost in the communication.? Client desires to to be more assertive with her communication. Progress noted in increased insight into how passive communication impacts client?s mental health. Client will continue in IOP to reduce negative thinking that reinforces depressive symptoms and to improve daily functioning. Narrative Note: []
--- NOTE | 2020-07-06 11:15 | BH.SGPN.GN ---
Behaviors/Verbalizations/Mental Status: []Client alert and oriented, neatly dressed and groomed. Eye contact fair. Motor activity appropriate. Speech within normal limits. Affect unable to gather due to wearing a mask for COVID-19 protocol, mood depressed. Thoughts linear, logical, no signs of hallucinations or delusions. Client Response/Progress/Benefit: []Client responded well to session AEB client listening attentively to others and providing input at times during discussion. Engaged in activity and processing importance of being clear and specific when communicating with others. Attentive during psychoeducation on reviewing assertiveness strategies to improve communication, and selected a assertiveness skill to practice. Client stated she plans to work on managing her emotions in the moment during a disagreement. Client reported she has a difficult time staying calm which can result in aggressive communication. Aware of consequences of not managing her emotions. Client seemed to benefit from increasing awareness of healthy strategies to improve communication. Progress limited which could be attributed to client's low motivation to apply skills outside of treatment environment. Will continue IOP tx to increase use of healthy coping skills, work on setting boundaries and prevent decompensation. Narrative Note: []
--- NOTE | 2020-07-11 10:15 | BH.SGPN.GN ---
Behaviors/Verbalizations/Mental Status: []Client alert and oriented, casually dressed and appropriately groomed. Eye contact fair. Motor activity appropriate. Speech within normal limits. Affect could not be assessed due to pt wearing a mask as a requirement during COVID-19 pandemic. Mood dysthymic and anxious. Thoughts linear, logical, no signs of hallucinations or delusions. Client Response/Progress/Benefit: []Pt receptive to session, provided input throughout discussion and listened attentively to peers. Provided input as the group brainstormed the positive and negative aspects of stress on physical and mental health. Group did well to identify that the benefits of stress include: motivates us, heightened senses/focus, increased productivity, and keeps us safe. Client identified her current stressors that impact her the most include: clutter in house, money problems, failing to budget, relationship problems, overwhelmed when taking care of grandson, low energy level, and health issues. Pt reported when she is experiencing overwhelming stress she tends to get angry, cry, and overeat. Seemed to benefit from increased awareness of personal stressors and understanding impact of stress of the mind and body. Recommend to continue IOP tx to increase healthy coping skills, increase boundary setting, and prevent decompensation. Narrative Note: []
--- NOTE | 2020-07-11 11:17 | BH.SGPN.GN ---
Behaviors/Verbalizations/Mental Status: [] Client alert and oriented, casually dressed and groomed. Eye contact good. Motor activity appropriate. Speech within normal limits. Affect unable to gather due to wearing a mask for COVID-19 protocol, mood dysthymic. Thoughts linear, logical, no signs of hallucinations or delusions. Client Response/Progress/Benefit: [] Client engaged participant in session AEB client listening attentively to others and taking notes during session, more passive than in prior sessions. Client actively listening during discussion about the 4 A's of managing stress. Noted that she has struggled with acceptance in the past, specifically regarding a decline in her physical health. Identified she wants to work on managing her physical health as a stressor in order to reduce resentment towards the uncontrollable. Discussed that by using acceptance she will be able to adapt a more positive mindset and better accept her own limitations. Client seemed to benefit from increased awareness of the impact of stress on mental health and increasing repertoire of stress management strategies. Will continue IOP tx to promote use of healthy coping skills, improve mood management and healthy boundary setting, as well as prevent decompensation. Narrative Note: []
--- NOTE | 2020-07-12 09:06 | BH.SGPN.GN ---
Behaviors/Verbalizations/Mental Status: []Client alert and oriented, casually dressed and groomed. Eye contact good. Motor activity appropriate. Speech within normal limits. Affect unable to gather due to wearing a mask for COVID-19 protocol, mood anxious and euthymic. Thoughts linear, logical, no signs of hallucinations or delusions. Reviewed client?s symptom tracker, no risk for suicidal ideation, plan, or intent as of 07/12/20. Client Response/Progress/Benefit: []Client responded well to session, receptive to feedback and providing input throughout. Client reports feeling a little anxious this morning as she had been worried she was going to be late to group and is still calming herself from feeling a little rushed. Client did well to identify personal wins and areas of progress which included practicing more positive self-talk when noticing she is focusing on the negatives. Provided an example of reframing negative thoughts about not completing her ?to-do list? and instead focusing on what she had accomplished. Additional win noted as making time for self-care by going out to lunch with a friend and not feeling guilty about doing so. Indicated this as progress as client often struggles with not allowing herself to take breaks. Appeared to benefit from connecting with peers and identifying personal wins as she shared ongoing difficulties with giving herself credit on her own. Will continue IOP tx to prevent decompensation, continue to promote mood stability, increase use of healthy communication with supports, and improve daily functioning. Narrative Note: []
--- NOTE | 2020-07-12 11:12 | BH.SGPN.GN ---
Behaviors/Verbalizations/Mental Status: []Client alert and oriented, casually dressed. Eye contact good. Motor activity appropriate. Speech within normal limits. Affect congruent, mood dysthymic. Thoughts linear, logical, no signs of hallucinations or delusions. Client Response/Progress/Benefit: []Client was an active participant AEB client providing input throughout session, taking notes, and completing worksheet. Client attentive during psychoeducation and additional discussion on cognitive distortions. Client reported the distortion, labeling ?is so easy to do.? Client engaged in discussion about how to reframe distorted thoughts using T.H.I.N.K into more realistic, rational statements. Client worked with her small group to challenge the distortion ?other people have it worse than me, my problems aren?t a big deal.? Group identified distortions of disqualifying the positives, minimizing, and black and white thinking in this thought. Group reframed the thought to ?everyone has problems, no one is better or worse than anyone else.? Client filled out her GAPs worksheet with the gameplan to increase self-awareness of her distortions by practicing self-reflection. Client seemed to benefit from practicing identifying and reframing distorted thoughts. Client to continue IOP level of care to increase healthy coping and decrease negative thinking that reinforces depressive symptoms. Narrative Note: []
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
--- NOTE | 2020-07-13 09:05 | BH.SGPN.GN ---
Behaviors/Verbalizations/Mental Status: []Client alert and oriented, casually dressed and appropriately groomed. Eye contact fair. Motor activity appropriate. Speech within normal limits. Affect could not be assessed due to patient wearing a mask as a requirement of COVID-19 pandemic. mood euthymic. Thoughts linear, logical, no signs of hallucinations or delusions. Client Response/Progress/Benefit: []Pt engaged in session AEB pt openly sharing thoughts and feels as well as listening attentively to peers. Pt reported she was able to accomplish her goal yesterday by challenging a distorted thought, identifying the distortion, and reframing her thought. Pt stated she has the thought I can't get my list done. Pt reported she identified this thought to be all or nothing, magnified and disqualifying the positive. Pt stated she reframed her thought to If I include self-care and treats into my to-do list it won't be so overwhelming. Pt reported by changing her thought pattern she was able to get more accomplished yesterday. Pt stated she took breaks throughout each of her tasks which helped her not view the list as overwhelming. Pt reported she feels happy that her Narrative Note: []
--- NOTE | 2020-07-13 10:17 | BH.SGPN.GN ---
Behaviors/Verbalizations/Mental Status: []Client alert and oriented, casually dressed and groomed. Eye contact good. Motor activity appropriate. Speech within normal limits. Affect unable to gather due to wearing a mask for COVID-19 protocol, mood euthymic. Thoughts linear, logical, no signs of hallucinations or delusions. Client Response/Progress/Benefit: []Client was an engaged participant throughout group session, providing frequent insight to session. Client connected with the quote and giving examples of the metaphorical load one can carry. Client stated, ?we can be stubborn and not ask for help carrying it.? Group discussed healthy versus unhealthy coping skills and what contributes to people using unhealthy skills. The group stated unhealthy coping skills tend to be easy and habitual, temporary relief, and learned behaviors from upbringing. Client gained aware of unhealthy coping skills she has used such as overeating, self-blame, distracting herself with others? problems, and over-scheduling. Client shared she know recognizes that using these skills only worsened client?s mental health and increased negative self-talk. Client reports she now has more awareness. Client seemed to benefit from increased awareness of importance of increasing healthy coping skills and consequences of utilizing unhealthy coping skills. Client will continue IOP tx to decrease negative thinking, improve mood stability, and gain self-awareness. Narrative Note: []
--- NOTE | 2020-07-13 11:21 | BH.SGPN.GN ---
Behaviors/Verbalizations/Mental Status: []Client alert and oriented, casually dressed and groomed. Eye contact good. Motor activity appropriate. Speech within normal limits. Affect unable to gather due to wearing a mask for COVID-19 protocol, mood euthymic. Thoughts linear, logical, no signs of hallucinations or delusions Client Response/Progress/Benefit: []Client responded well to session, connected with materials discussed, and participating in discussion. Client contributed as the group discussed the different categories of coping skills which included distraction, emotional release, grounding, self-love, and thought challenging. Provided examples for each category, but reported she struggles with the category of self-love, specifically regarding setting healthy boundaries. Client participated in creating a coping skills ?menu? for the five categories of coping skills. Client's coping skill menu included: gardening and using her grandson for distraction, 5-senses, pulling weeds or calling a support, positive self-talk, and identifying distortions and challenging them. Client appeared to benefit from increasing repertoire of healthy coping skills. Client progress shown by increased ability to identify and reframe negative thoughts. Will continue IOP tx to further decrease anxiety, improve boundary setting, and improve mood stability. Narrative Note: []
--- NOTE | 2020-07-18 09:00 | BH.SGPN.GN ---
Behaviors/Verbalizations/Mental Status: [] Eye contact is good. Motor activity is appropriate. Appearance is neat. Speech is Appropriate. Mood is anxious. Affect is congruent. Thoughts are linear and logical. No evidence of psychosis. Reviewed daily check in sheet and no reports of suicidal ideations or intent. Client Response/Progress/Benefit: [] Pt was an active participant in group discussion. Provided appropriate feedback to peers. Pt mainly shared some frustrations with support and time management during her check-in. Group encouraged self-care and challenged her when she began to make excuses. She followed through with her goal to begin an thought record and identified one event in which she was able to identify the event, her thoughts, her feelings, her actions, and the cognitive distortions she used. The event involved the small action of not wearing a necklace. Able to see the frequency in which she utilizes cognitive distortions and how this impacts her mood. Progress noted. Benefited from group discussion, support, and feedback. Will continue in IOP to prevent decompensation, increase copings skill, and to improve functioning. Narrative Note: []
--- NOTE | 2020-07-18 10:17 | BH.SGPN.GN ---
Behaviors/Verbalizations/Mental Status: []Client alert and oriented, neatly dressed and groomed. Eye contact good. Motor activity appropriate. Speech within normal limits. Affect unable to gather due to wearing a mask for COVID-19 protocol, mood euthymic. Thoughts linear, logical, no signs of hallucinations or delusions. Client Response/Progress/Benefit: []Client responded well to session, attentive and engaged throughout discussion and activity. Client appeared to connect with the topic of fear of failure. Client reported failure can lead to negative thinking, self-depreciation, and fear of trying. Client connected with the concept that mindset is powerful in determining how a person moves forward after failing. Client shared ?I used to tell my son growing up that failures are good because you learn.? Group reported fear of failure can lead to depression, quitting, low self-esteem, and staying stuck. Client stated although failure initially is difficult to overcome, client reports that one can challenge their perspective and get better at navigating vulnerable situations such as failure. Client shared ?I had a boss once tell me it was ok to mess up, it was freeing.? Client appeared to benefit from gaining awareness of the impact of fear of failure can have on one?s mental health and wellbeing. Progress noted as client reports reduce depressive symptoms. Will continue IOP tx to reduce anxiety, improve positive self-talk, and further reduce negative thinking. Narrative Note: []
--- NOTE | 2020-07-18 11:15 | BH.SGPN.GN ---
Behaviors/Verbalizations/Mental Status: []Client alert and oriented, casual appearance. Eye contact good. Motor activity appropriate. Speech within normal limits. Affect unable to gather due to wearing a mask for COVID-19 protocol, mood euthymic, anxious. Thoughts linear, logical, no signs of hallucinations or delusions. Client Response/Progress/Benefit: []Client responded well to session, engaged during the group activity and actively participating throughout processing discussion. Client completed the fear of failure worksheet and reported that fear of failure has kept client from ?setting healthy boundaries with my family? and ?working on my mental health?. Client able to identify barriers that reinforce personal fear of failure which included: distorted thoughts, fear of success, fear of other?s reactions, believing toxic input from others, and unrealistic expectations. Client attentive during discussion of the different strategies to help overcome fear of failure. Identified personal strategies to include: thought challenging, planning ahead, opposite action, doing something she?s good at, and setting healthier boundaries. Client reported past failures have taught client that failure can be a learning experience. Client appeared to benefit from learning ways to overcome fear of failure. Will continue IOP tx to reinforce healthy coping skills, continue to improve ability to set healthier boundaries and reduce rumination. Narrative Note: []
--- NOTE | 2020-07-18 13:19 | BH.MTP_ITS ---
Treatment Plan Review Date of Admission:: 06/16/20 Date of Treatment Plan Review:: 07/18/20 Admitting Diagnoses:: Major depressive disorder, recurrent, severe without psychosis F33.2; generalized anxiety disorder Current Diagnoses:: Major depressive disorder, recurrent, severe without psychosis F33.2; generalized anxiety disorder Patient's Response to Treatment:: Client has been responding well to treatment and is demonstrating progress towards her treatment goals AEB reduction in DSM-5 scores and high engagement in group and individual sessions. Client has been consistent with applying coping skills outside of IOP as client reports using distortion identification and thought challenging, self-care, and positive self- talk. Client is an active group member who often gives insight to discussion, feedback to peers, and connects the topics to her daily life. Client's consistent application of skills is likely the reason for her reduction in symptoms and reduction in depressive symptoms. Client continues to struggle with severe anxiety symptoms, boundary setting with her family, and negative thoughts of self. Client will continue IOP tx to further reduce the intensity of anxiety symptoms and to promote gains made in reduction of depression. Status of Current Problems and Symptoms: Client is demonstrating progress towards her tx goals as client reports no suicidal ideations and has been isolating less. Client has responded well to learning coping skills and she is consistent with completing homework. Client?s DSM-5 scores for depression have decreased, but client continues to struggle with lack of energy, increased fatigue, negative thinking, low self-worth, crying spells, ruminations, and anxiety. Client endorses numerous negative core beliefs about her worth that stem from childhood and client is aware that challenging and replacing these beliefs will take time and effort. Client?s reports ongoing family stressors that impact client?s mental health including babysitting her grandson and sett ing boundaries. Client?s medical issues have been impacting client?s anxiety symptoms as client has been experiencing exacerbation in asthma symptoms recently. Problem #1 Problem Name:: Pt. will reduce depressive sx, fleeting SI, and negative thoughts Status of Goals:: Objective 1- complete. Ongoing work on goal recommended to promote mood stability. Client?s DSM-5 scores for depression have decreased by 63% since admission. Client reports an improved mood and has been applying coping skills such as goal setting and thought challenging. Objective 2- in progress. Client has gained awareness of distorted thought patterns that reinforce depression, but she struggles to reframe negative thoughts on a consistent basis. Client acknowledges her negative core beliefs are deep rooted and will take time to replace. Team Recommendations:: Client encouraged to continue working on this treatment goal to reinforce healthy coping skills and to further decrease depressive symptoms. Client and therapist currently working on reframing negative core beliefs, thought challenging, boundaries, and positive self-talk. Problem #2 Problem Name:: Pt. will reduce overall frequency, intensity, and duration of anxiety Status of Goals:: Objective 1- Not complete and in progress. Client has gained awareness of warning signs, triggers, and coping skills. Client?s DSM-5 scores for anxiety remain the same since admission, so there is some progress in preventing decompensation. Objective 2- not complete and in progress. Client has gained awareness of her distorted thought patterns that lead to ruminations. Client has also learned ways to cope with these thoughts, but can continue to improve with consistency and self-compassion. Team Recommendations:: Client encouraged to continue working on this treatment goal as client?s anxiety symptoms continue to score severe on the DSM-5. Client and therapist currently working on mindfulness, boundary setting, thought challenging, and self-care.
--- NOTE | 2020-07-19 09:05 | BH.SGPN.GN ---
Behaviors/Verbalizations/Mental Status: []Client alert and oriented, casually dressed and appropriately groomed. Eye contact good. Motor activity appropriate. Speech within normal limits. Affect could not be assessed due to pt wearing a mask as a requirement of the COVID-19 pandemic. mood euthymic, slightly anxious. Thoughts linear, logical, no signs of hallucinations or delusions. Client Response/Progress/Benefit: []Pt responded well to session AEB pt listening attentively to peers and openly sharing thoughts and feelings. Patient reported yesterday she took time to look at the sunflowers at [employer]. Patient stated she had to watch her grandson yesterday and had really good time with him. Patient identified utilizing the skills of self talk, opposite action, and looking at a situation from another person's perspective. Patient provided feedback and support to other peers throughout session. Seemed to benefit from expressing thoughts and feelings and received support from peers. Progress noted with patient intentionally taking time to do a self-care activity yesterday despite having to unexpectedly watch her grandson. Patient to continue IOP level of care to increase self-care, continue to set clear boundaries, and prevent decompensation. Narrative Note: []
--- NOTE | 2020-07-19 10:00 | BH.COMM ---
Communication Note - Communication with Client Communication Note: Client as undersigned to assist her in setting up her glucometer for use. This nurse assisted client with settings on glucometer and setting up lancet for use. Discussed clean hands prior to testing. Client demonstrated use of device. Client denies further questions.
--- NOTE | 2020-07-19 11:13 | PCM.BH.PN_ITS ---
Progress Note Progress Note: History of Present Illness/Interim History: [] The patient is a 59-year-old female who is seen in follow-up at the [facility] behavioral health IOP program. I last saw the patient 2 weeks ago and she is being treated for depression and anxiety. The patient states that she continues to slowly improve. Her mood is better and she is much less depressed but her anxiety remains significant. Lately her asthma has been worse the past few days and this may have caused some increased anxiety. She states that she woke up with symptoms similar to a panic attack around 4:30 in the morning today but she did not take any Ativan. The symptoms resolved after few minutes with her sitting up and using breathing exercises. She then went back to sleep after she did a breathing treatment. Discussed with the patient that her anxiety will feel worse when her asthma is severe as those symptoms are similar to anxiety. She denies any suicidal ideation whatsoever now. Denies any hallucinations or delusions. She is using skills she learns in the IOP program to cope with living with her son and his and her grandson. She feels that she is improving her quality of life by using the skills. She is still frustrated that the shortness of breath from her severe asthma makes it hard for her to do what she wants at home. She is enjoying being with her grandson lately and is looking forward to watching him overnight for 2 nights this weekend while her son and his go away to celebrate their anniversary. She states they have never had a honeymoon and she is grateful she can do this for them. She discussed the strategy she will use to make her grandson less difficult for her to care for. Current Psychiatric Medications: [] Effexor XR 75 mg p.o. nightly (x6 weeks now); Wellbutrin XL 150 mg p.o. every morning (x1 month now). Lorazepam 0.5 mg p.o. as needed for panic attack but has not taken any in a long time. Mental Status Examination: [] The patient is an obese female who is seen wearing a mask due to the COVID pandemic. She has mild audible wheezing after walking into the interview room. She is casually dressed and groomed with good hygiene. She is cooperative and pleasant during the interview. She has no psychomotor agitation or retardation. Her eye contact is good. Mood is mildly depressed. Affect is constricted to euthymic. Thought process is goal- directed and organized. Thought content: There is no evidence of suicidal or h omicidal ideation. No evidence of hallucinations or delusions or passive thoughts of . Judgment is intact. Insight: Good. Impulsivity: Low. Diagnoses: [] Powersite I: [] But are recurrent, severe without psychosis; generalized anxiety disorder Powersite II: Deferred Powersite III: [] CHARLETTE, obesity, severe asthma Powersite IV:[]] Primary support, work and health issues Plan: [] The patient will continue the IOP program at [facility] as the structure, support, education, individual and group therapy will continue hopefully to benefit the patient and prevent worsening of her symptoms. The risks, options, possible complications and side effects of the medications were again discussed with the patient and she understands and accepts these. She felt safe during the interview and if at any time she does not feel safe she will let us know or go to the emergency room. No changes in her medications were made and she will continue the current doses. A refill was sent in for the Wellbutrin XL 150 mg p.o. every morning, #30, 1 refill. She will continue to follow-up with her outpatient psychiatric and medical providers.
--- NOTE | 2020-07-19 11:20 | BH.SGPN.GN ---
Behaviors/Verbalizations/Mental Status: []Client alert and oriented, neatly dressed and groomed. Eye contact good. Motor activity appropriate. Speech within normal limits. Affect unable to gather due to client wearing a mask as part of COVID-19 protocol. mood anxious. Thoughts linear, logical, no signs of hallucinations or delusions. Client Response/Progress/Benefit: []Client was engaged throughout AEB contributing to discussion and sharing her worksheet. Client reported staying her in comfort zone has kept client from setting boundaries with her [id number] and practicing self-compassion. Client identified three small goals to get client out of her comfort zone which included: identifying negative thoughts as they come up, set boundaries at home, and reduce procrastination. Client identified her barriers to be: racing thoughts, lack of concentration, and negative thinking. Client shared she would like to first work on identifying and challenging her negative thinking. Client shared she can hold herself accountable by creating a checklist, setting reminders, and making time to complete her thought logs. Appeared to benefit from psychoeducation and working with the group to brainstorm strategies for improving personal accountability. Progress noted AEB client?s report of reduced depressive symptoms, but she continues to struggle with high anxiety. Will continue IOP tx to reduce anxiety symptoms, improve emotional regulation skills, and reduce negative thinking. Narrative Note: []
--- NOTE | 2020-07-20 09:05 | BH.SGPN.GN ---
Behaviors/Verbalizations/Mental Status: []Client alert and oriented, casual dress, hygiene tended to. Eye contact good. Motor activity appropriate. Speech within normal limits. Affect could not be assessed due to pt wearing a face mask as requirement of COVID-19. mood anxious. Thoughts linear, logical, no signs of hallucinations or delusions. Reviewed client?s symptom tracker, pt denies current suicidal thoughts or intention to date. Client Response/Progress/Benefit: [] Patient responded well to session as evidenced by patient listening attentively to others, providing support, and sharing thoughts and feelings. Patient reported she is feeling anxious because she has her grandson to watch for the whole weekend. Patient stated she is been trying to identify various activities in places that she can take her grandson that would be safe due to the coronavirus pandemic. Patient reported utilizing the skills of putting herself another person shoes, breathing, and self awareness. Patient stated there was a situation yesterday in which she wanted to set a boundary but did not because she was afraid of hurting the other person's feelings. Patient admitted she continues to struggle with boundary setting which impacts her mental health because she puts other people first. Patient stated stressor is waking up for the past 2 days at 4 AM with a panic attack. Patient attributed the panic attack to being anxious about this upcoming weekend with her grandson. During session patient attempted to utilize positive self talk about herself that she can manage her grandson because she has done it many times before. Patient stated benefit from support from peers and expressing her thoughts and feelings. Patient to continue IOP level of care to increase ability to set boundaries, continues healthy coping skills, and prevent decompensation. Narrative Note: []
--- NOTE | 2020-07-20 09:09 | BH.MDN_ITS ---
Multi-Disciplinary Note - Note 60-min Individual Time Started:: 12:05 Date: 07/20/20 Purpose of session/treatment goals addressed:: The purpose of this session was to address current stressors and to develop a self-care plan for the weekend. Other topics included thought challenging and realistic expectations. Eye Contact:: Good Motor Activity:: Appropriate Appearance:: Neat Speech:: Appropriate Mood:: Euthymic, Anxious Affect:: Congruent Thoughts:: Linear, Logical, No evidence of hallucinations/delusions noted Staff Interventions:: Therapist used active listening and open-ended questions to explore client's current stressors, mood, and symptoms. Therapist gently challenged client's distortions and unrealistic expectations of self. Therapist reviewed self-care with client and used motivational interviewing to encourage client to make time for self this weekend. Therapist helped client set realistic goals for the weekend. Client Response:: Client responded well to session, open to meeting with therapist. Client stated she is anxious about having her grandson alone for the entire weekend, but client has some more ideas of what they can do. Client reported I should have gotten a lot more stuff done than I did. Client often verbalizes an extensive to-do list and recognizes she has unrealistic expectations for herself. Client was not going to plan time for self-care today, but after discussion with therapist, client recognized it was important. Client receptive of how self-care can be proactive to manage stress. Client plans to spend at least 30 minutes on self-care today. Client also cut back her to-do l ist down to four tasks rather than a huge list. Client and therapist discussed self-compassion and client was encouraged to practice this over the weekend. Risks/Concerns:: Client denies any active suicidal ideations, plan, or intent as of 07/20/20 and for the past two weeks. Progress Toward Goals/Plan:: Client is demonstrating progress towards her tx goals as client reports no suicidal ideations, less depression, and has been isolating less. Client has been practicing thought challenging as well, but client reports she still struggles to do this consistently. Client continues to endorse a depressed mood of reduced intensity, lack of energy, increased fatigue, negative thinking, low self-worth, ruminations, and anxiety. Client is anxious about watching her grandson all weekend as client will not have a lot of time for self-care. Will continue IOP tx to prevent decompensation, increase healthy boundaries, and reduce negative self-talk. Time Stopped:: 12:58
--- NOTE | 2020-07-20 10:16 | BH.SGPN.GN ---
Behaviors/Verbalizations/Mental Status: []Client alert and oriented, neatly dressed and groomed. Eye contact good. Motor activity appropriate. Speech within normal limits. Affect unable to gather due to wearing a mask for COVID-19 protocol, mood euthymic. Thoughts linear, logical, no signs of hallucinations or delusions Client Response/Progress/Benefit: []Client was an active participant in group discussion, providing input throughout. Client worked with peers on defining goals and brainstormed with the group the benefits of goal setting which included: increased motivation, sense of accomplishment, increased confidence, growth, and purpose. Client helped group discussed the barriers that keep people from either setting goals are following through with goals. Client gave examples of self-judgement, comparisons, and viewing setbacks as failures as barriers to following through with goals. Client also stated it is important to give self credit for each step taken towards a goal. Able to provide feedback during psychoeducation on SMART goals. Client appeared to benefit from learning the mental health benefits of setting goals that are SMART. Will continue IOP tx to further decrease depression, reduce negative thinking, and improve daily functioning. Narrative Note: []
--- NOTE | 2020-07-20 11:19 | BH.SGPN.GN ---
Behaviors/Verbalizations/Mental Status: []Eye contact is good. Motor activity is appropriate. Appearance is casual. Speech is Appropriate. Mood is anxious, dysthymic. Affect unable to gather due to wearing a mask as COVID protocol. Thoughts are linear and logical. No evidence of psychosis Client Response/Progress/Benefit: []Client was engaged during discussion, did well to complete activity and process with the group. Providing insight on the importance of practicing working at goals to prevent giving up when faced with potential setbacks. Client was willing to complete the worksheet in which she was challenged to develop a personal SMART goal. Client chose the goal; to reduce distorted thoughts by identifying and reframing at least one distortion once a day for one week. When asked why this goal was important and beneficial to client's mental health, she stated this will reduce negative thoughts, improve self-confidence, and increase overall positive attitude. Discussed that identifying her negative thoughts is often difficult for client but that she has been making progress in her ability to recognize the different distortions. Benefited from this group by developing a short-term SMART goal related to mental health. Will continue IOP tx to prevent decompensation, improve daily functioning, and continue to promote healthy change behaviors. Narrative Note: []
--- NOTE | 2020-07-25 09:05 | BH.SGPN.GN ---
Behaviors/Verbalizations/Mental Status: []Client alert and oriented, casual dress, hygiene tended to. Eye contact fair. Motor activity appropriate. Speech within normal limits. Affect constricted, mood depressed. tearful throughout. Thoughts linear, logical, no signs of hallucinations or delusions. Reviewed client?s symptom tracker, pt denies current suicidal thoughts or intention to date. Client Response/Progress/Benefit: []Pt responded well to session AEB pt appearing to listen attentively to peers and openly sharing thoughts and feelings. Pt tearful throughout check-in stating she really connected with what another group member was sharing about not having ability to stop unwanted thoughts. Pt reported she did not complete her GAPS worksheet over the weekend since had to watch her grandson. Pt stated she is continuing to struggle with her [id number] not willing to do any chores around the house. Pt reported she was frustrated because asked her [id number] to take the laundry upstairs but it did not happen. Pt stated instead her [id number] laid on the couch most of the day. Pt reported she recognizes she needs to set boundaries but continues to struggle. Progress could be hindered by pt's continued difficulty with setting boundaries. Pt to continue IOP level of care to increase use of healthy skills, set boundaries, and prevent decompensation. Narrative Note: []
--- NOTE | 2020-07-25 10:25 | BH.SGPN.GN ---
Behaviors/Verbalizations/Mental Status: []Client alert and oriented, casual dress, hygiene tended to. Eye contact good. Motor activity appropriate. Speech within normal limits. Affect unable to gather due to wearing a mask, mood dysthymic. Thoughts linear, logical, no signs of hallucinations or delusions. Client Response/Progress/Benefit: []Client responded well to session, discussed the quote and took notes throughout session. Engaged during psychoeducation portion reviewing fixed mindset. Client connected with traits of the fixed mindset and worked with group to identify how a fixed mindset can impact our mental health which included: decreased motivation, giving up when faced with a setback, negative self-talk, low confidence, and staying stuck. Client stated fixed thinking reminds client of cognitive distortions such as black and white thinking and labeling. Client shared she has had fixed thoughts before about her abilities and stated, ?instead of trying I would give up because I didn?t think I was good enough.? Seemed to benefit from group by increasing awareness of how one's mindset impacts mental health. Client has shown progress since IOP admission, but this week reports worsening depressive symptoms. will continue IOP tx to prevent further decompensation, challenge negative thoughts, and increase application of coping skills. Narrative Note: []
--- NOTE | 2020-07-25 11:22 | BH.SGPN.GN ---
Behaviors/Verbalizations/Mental Status: []Client alert and oriented, casually dressed and groomed. Eye contact good. Motor activity appropriate. Speech within normal limits. Affect unable to gather due to client wearing a mask as part of COVID-19 protocol. mood anxious and dysthymic. Thoughts linear, logical, no signs of hallucinations or delusions. Client Response/Progress/Benefit: [] Client actively listening during discussion and taking notes throughout. Client did well to work with group on identifying characteristics and benefits of adopting a growth mindset. Reports that a growth mindset could help to improve self-confidence and keep from giving up. Client provided input during activity in which participants helped reframe examples of fixed thoughts into growth mindset thoughts. Client worked to apply skills learned to reframe own personal fixed thoughts. Reframed thought of ?I won?t ever get better? with growth mindset thought of ?If I keep trying, I can make more steps to get better?. Noted that this would aid in improving her motivation and decrease negative self-talk. Benefitted from discussing benefits of growth mindset and brainstorming strategies for prompting growth-mindset. Client progress noted in self-report of improved ability to apply thought challenge skills, though continues to struggle significantly with negative core beliefs impacting her self-esteem. Will continue IOP tx to continue to promote active thought challenging and skill application as well as improve healthy coping repertoire. Narrative Note: []
--- NOTE | 2020-07-26 09:05 | BH.SGPN.GN ---
Behaviors/Verbalizations/Mental Status: []Client alert and oriented, casual appearance. Eye contact good. Motor activity appropriate. Speech within normal limits. Affect unable to gather due to wearing a mask for COVID-19 protocol- tearful, mood anxious, frustrated, and dysthymic. Thoughts linear, logical, no signs of hallucinations or delusions. Reviewed client?s symptom tracker, no risk for suicidal ideation, plan, or intent as of 07/26/20. Client Response/Progress/Benefit: []Client responded well to session, attentive and contributing to discussion. Client shared she has been struggling and reports feeling ?hopeless and agitated? this morning. Client had to babysit her three year-old grandson for the entire weekend which was mentally and physically exhausting. Client has been encouraged to practice self-care this week, and client stated she did paint her nails and go to the [employer] store. Client also reports belief her increase in depression this week is because of ?this time of year? and not having a lot of alone time. Client appeared to benefit from connecting with peers and verbalizing her stressors. Client has made progress while in IOP, but recently reports a regression in symptom management. Client acknowledges that not setting boundaries with her family may hinder progress. Will continue IOP tx to prevent further decompensation, reinforce healthy coping skills, and promote use of healthy boundary setting. Narrative Note: []
--- NOTE | 2020-07-26 10:22 | BH.SGPN.GN ---
Behaviors/Verbalizations/Mental Status: [] Client alert and oriented, casual dress, hygiene tended to. Eye contact good. Motor activity appropriate. Speech within normal limits. Affect could not be assessed due to pt wearing a face mask as precaution against coronavirus. Mood dysthymic. Thoughts linear, logical, no signs of hallucinations or delusions. Client Response/Progress/Benefit: []Pt receptive of session, remained an active participant throughout. Appeared to connect with topic of healthy decision making and worked with group to identify factors that can lead to being on an unhealthy decision-making path. Group identified factors to include: stubbornness, ignoring warning signs, not asking for help out of fear of judgement, habit, and fear of the unknown. Pt reported that guilt has kept her stuck in the past. Group was provided with the ?Chapters of My Life? handout exploring how our decisions can contribute to the different life paths or ?chapters? we may be on. Pt engaged throughout processing discussion, was willing to reflect upon which chapter she is currently in and what factors impact ability to move to the next chapter in life. Pt identified being in chapter 3, discussed ?I feel like I?m in a loop in this chapter. I understand but keep sliding back down again? Shared that making lack of personal effort and difficulties in setting boundaries has kept her from moving to a healthier chapter. Appeared to benefit from gaining insight into her own personal barriers impeding mental health progress. Progress noted in pt increased levels of insight and more active use of self-reflection. Continues to struggle with consistent independent skill application, assertive communication, and boundary setting. Pt to continue IOP tx to prevent decompensation, promote healthy change behaviors, and improve coping repertoire. Narrative Note: []
--- NOTE | 2020-07-26 14:21 | BH.MDN ---
Multi-Disciplinary Note - Note 60-min Individual Time Started:: 12:03 Date: 07/26/20 Purpose of session/treatment goals addressed:: The purpose of this session was to address worsening depressive symptoms, triggers, negative thinking, and barriers. Another goal was to practice thought challenging in the moment and identifying strategies to prevent decompensation. Eye Contact:: Good Motor Activity:: Appropriate Appearance:: Neat Speech:: Rambling Mood:: Depressed Affect:: Congruent - tearful Thoughts:: Circular, No evidence of hallucinations/delusions noted Staff Interventions:: Therapist used active listening and open-ended questions to explore client?s worsening symptoms, stressors, triggers and negative thoughts. Therapist gave client a safe place to vent her emotions and triggers. Therapist helped client gain awareness of barriers that reinforce negative thinking and feeling overwhelmed. Therapist used cognitive restructuring to reframe negative thinking in the moment and empower client on progress she has made in IOP. Therapist used motivational interviewing to help client gain insight to how lack of boundary setting impacts client?s functioning and mental health. Therapist helped client set a goal to write out affirmations and hang them around the house. Client Response:: Client responded well to session, open to meeting with therapist. Client was tearful almost immediately and shared that she has been struggling. Client reports belief it is due to the time of year triggering numerous losses for client. Client stated it was around this time of year client's found out he had cancer several years ago and it is also the time of year a love affair ended for client. Client acknowledged that watching her [id number] grandson all weekend without relief is likely a contributor as well. Client continues to struggle with boundary setting with her son and his . Client endorses resentment, guilt, and frustrations towards her son and his . However, client continues to self-report not being ready to set boundaries. Therapist discussed how lack of boundary setting may hinder progress ongoing and client acknowledges this. Client shared when she feels low like this client has more negative thoughts that are harder to challenge. Client reports feeling worthless and not good enough. Receptive to challenging these thoughts in the moment and was able to identify people's lives client has touched. Client also recognized it would be helpful to hang up affirmations around her house again as this helped client's mood in the past. Risks/Concerns:: Client reports feeling hopeless this week, but denies any suicidal ideations. Client denies any plans for suicide or intent to hurt herself as of 07/26/20. Client is future oriented and has protective factors. Progress Toward Goals/Plan:: Client had been demonstrating progress towards treatment goals, but this week client reports worsening depressive symptoms. Client reports belief it is due to the time of year triggering a lot of losses and client feeling overwhelmed from a weekend of childcare. Today client endorses crying spells, hopelessness, low energy, lack of motivation, difficulty concentrating, and ruminations. Client receptive to returning to coping skills that have helped in the past. Will continue IOP tx to prevent further decompensation, reduce negative thinking, and improve healthy boundary setting. Time Stopped:: 13:05
== END 2020-07-26 23:59 ==
LOC: BHIOP 09:00
PROVIDERS: PCP Internal Medicine; Referring Provider Psychiatry & Neurology Psychiatry; Visit Provider Psychiatry & Neurology Psychiatry
DX: F33.2 Major depressive disorder, recurrent severe without psychotic features (principal); F41.8 Other specified anxiety disorders; E66.9 Obesity, unspecified; G47.33 Obstructive sleep apnea (adult) (pediatric); J45.909 Unspecified asthma, uncomplicated; Z79.899 Other long term (current) drug therapy
CPT/HCPCS: H0035; 90837; 90853

== ENCOUNTER 2020-08-01 09:00 | Outpatient (RCR) | payer BC, SELFPAY ==
[2020-07-04 08:55] VITALS: BMI 43.4
[2020-07-27 00:40] VITALS: BP 146/64; PULSE 97; RESP 20
--- NOTE | 2020-08-01 10:20 | BH.SGPN.GN ---
Behaviors/Verbalizations/Mental Status: []Client alert and oriented, neatly dressed and groomed. Eye contact good. Motor activity appropriate. Speech within normal limits. Affect unable to gather due to wearing a mask for COVID-19 protocol, mood euthymic. Thoughts linear, logical, no signs of hallucinations or delusions. Client Response/Progress/Benefit: []Client was an active participant AEB contributing to discussion and participating in activity. Connected with the topic of pitfalls and helped the group discuss barriers that keep them from choosing a healthier path to mental wellness such as pitfalls. Group worked together to identify examples of personal pitfalls which included; not expressing self, not reaching out to supports, negative thinking, and not having awareness. Client stated if one continues to fall into pitfalls it could lead to suicidal ideations. Engaged during the activity and did well to practice healthy coping skills to manage anxiety. Client reported she used deep breathing and communication with supports to manage anxiety. Client benefited from increased awareness on the impact that pitfalls can have on mental health. Will continue IOP tx to further decrease negative thinking that reinforces depression and anxiety. Narrative Note: []
--- NOTE | 2020-08-01 11:20 | BH.SGPN.GN ---
Behaviors/Verbalizations/Mental Status: []Client alert and oriented, casual dress, hygiene tended to. Eye contact good. Motor activity appropriate. speech and tone WNL. Affect congruent, mood dysthymic. Thoughts linear, logical, no signs of hallucinations or delusions. Client Response/Progress/Benefit: []Client receptive of session, engaged throughout AEB client participating in discussion, asking questions, and listening to others. Client completed a worksheet where she identified personal pitfalls impacting mental health progress. Identified pitfalls as: poor boundaries, negative thoughts, self-sabotage, not using coping skills consistently, and not challenging destructive thoughts. Attentive and contributing during group brainstorm of strategies to overcome pitfalls. Client stated she will work on the pitfall of self-destructive thoughts. Client stated she will work on this by writing down her distorted thought and reframing. Benefited from identifying personal pitfalls and strategies to overcome these pitfalls. Client to continue IOP level of care to improve self-confidence, continue to promote healthy boundary setting, and prevent decompensation. Narrative Note: []
--- NOTE | 2020-08-01 14:48 | BH.MDN ---
Multi-Disciplinary Note - Note 45-min Individual Time Started:: 09:30 Date: 08/01/20 Purpose of session/treatment goals addressed:: The purpose of this session was address current symptoms, anxious thoughts, and application of coping skills. Another goal was to discuss aftercare and additional resources. Eye Contact:: Good Motor Activity:: Appropriate Appearance:: Neat Speech:: Appropriate Mood:: Euthymic Affect:: Congruent Thoughts:: Linear, Logical, No evidence of hallucinations/delusions noted Staff Interventions:: Therapist used active listening and open-ended questions to explore client's current symptoms, application of coping skills, and mood. Therapist used strengths perspective to empower client on her generalization of coping skills since last session. Therapist explored client's anxious thoughts and encouraged problem-solving and thought challenging. Therapist discussed resources to help client and her family with parenting and discussed aftercare. Therapist gave client a jar and client will put one strength a day in it. Client Response:: Client responded well to session, open to meeting with therapist. Client reports feeling better today and was not tearful during session. Client stated she hung up sticky notes around her house with positive affirmations on them. Client reported this helped client reframe negative thinking. Client shared feeling anxious about what she will do to maintain progress after IOP discharge. Client stated she winter is typically the hardest time of the year for client. Client receptive to starting IOP aftercare following a successful IOP discharge. Client also receptive to individual counseling and participating in parenting classes. Client reports wanting to work on acceptance and focusing on the positives. Client and therapist came up with the idea to make a strengths jar which client will use to keep daily mental health wins. Risks/Concerns:: Client denies any suicidal ideations, plan, or intent as of 08/01/20. Progress Toward Goals/Plan:: Client reports this week she is doing better and does not present with as severe depressive symptoms. Client contributed her improved mood to a lot of little surprises over the weekend and hanging up affirmations. However, client continues to struggle with consistently managing her emotions, especially with family, setting boundaries, and negative thinking. Client's asthma has been getting worse, which could impact client's ability to attend IOP consistently. Client receptive to parenting classes to help with raising her grandson. Client also receptive to participating in IOP aftercare when client discharges. Will continue IOP tx to promote mood stability, reduce negative thinking, and further reduce depressive symptoms. Time Stopped:: 10:11
--- NOTE | 2020-08-03 15:22 | BH.COMM ---
Communication Note - Communication with Client Communication Note: Client canceled her scheduled IOP sessions on 08/02/20 and 08/03/20 due to not feeling well. Client reports symptoms of drainage and was encourgaed to contact her PCP to get cleared before returning to IOP.
--- NOTE | 2020-08-09 13:51 | BH.MDN_ITS ---
Multi-Disciplinary Note - Note 30-min Individual Time Started:: 12:25 Date: 08/15/20 Purpose of session/treatment goals addressed:: The purpose of this session was to address client's current symtpoms, application of coping skills, and plan of care. Another goal was to address medication concerns. Symptoms/Behavior:: This counseling session was provided via telehealth using two-way, real-time interactive telecommunication technology between the patient and the clinician. The interactive telecommunication technology included audio. The patient was offered telehealth as an option for care delivery during the COVID-19 pandemic and consented to this option. Patient location: [place]. Provider located at [facility] Eye Contact:: Other - unable to gather due to session being over the phone Motor Activity:: Other - unable to gather due to session being over the phone Appearance:: Other - unable to gather due to session being over the phone Speech:: Appropriate Mood:: Anxious Affect:: Other - unable to gather due to session being over the phone, but brian alvarez was tearful at one point. Thoughts:: Linear, Logical, No evidence of hallucinations/delusions noted Staff Interventions:: Therapist called client and had a session via phone due to client being unable to attend IOP in person due to client experiencing worsening asthma symptoms. Therapist used active listening and open-ended questions to explore client's current symptoms, application of coping skills, and plan of care. Therapist encouraged client to reach out to her PCP and pulmonary regarding client's worsening asthma symptoms. Therapist reviewed healthy coping skills including boundary setting, assertive communication, and self-talk. Therapist will discuss medication concerns with IOP tx team. Client Response:: Client responded well to session, open to talking with therapist over the phone. Client stated she misses coming in person to IOP, but that she has been maintaining. Client reports her asthma continues to be an issue and was encouraged to call her PCP and pulmonary. Client stated she does not think it will be helpful, but client will consider this. Client shared following through with goals from last session which were to identify her strengths each day, write out affirmations, and work on self-care. Client reported there are still issues at home between client, her son, and her [id number]. Client stated they did have better communication the other day which gave client some hope things could improve. Client encouraged to continue practicing thought challenging and setting boundaries. Client shared she has stopped taking one of her medications because client does not like how it makes client feel. Client receptive to therapist communicating this with tx team. Risks/Concerns:: Client denies any suicidal ideations, plan, or intent as of 08/09/20. Future oriented. Progress Toward Goals/Plan:: Client is demonstrating progress towards treatment goals AEB client's report of maintaining and following through with homework from last session. Client stated she has been getting out of her house and challenging perspective. Client continues to struggle with asthma issues that impact mood, negative thinking, and relationship conflict within her family. Client's attendance has been inconsistent which could potentially impact [facility]. Will continue IOP tx to prevent decompensation, establish aftercare, and improve use of healthy coping skills. Time Stopped:: 13:00
--- NOTE | 2020-08-09 14:19 | BH.COMM ---
Communication Note - Communication with Client Communication Note: Client canceled her scheduled IOP session today due to exacerbation of asthma symptoms. Client has canceled several times and has not seen IOP therapist this week, so client and therapist will have a session over the phone today.
--- NOTE | 2020-08-15 08:35 | BH.COMM ---
Communication Note - Communication with Client Communication Note: Client canceled her scheduled IOP sessions today due to exacerbation of asthma symptoms. Client has had to cancel four times in the past two weeks due to issues with breathing. Therapist will continue to follow up with client.
--- NOTE | 2020-08-16 10:03 | BH.SGPN.GN ---
Behaviors/Verbalizations/Mental Status: []Client alert and oriented, casually dressed. Eye contact good. Motor activity appropriate. Speech within normal limits. Affect could not be assessed due to pt wearing a mask as a requirement during COVID-19 pandemic. Mood euthymic and anxious. Thoughts linear, logical, no signs of hallucinations or delusions. Client Response/Progress/Benefit: []Pt remained an active participant throughout session AEB pt providing input to discussion/asking questions, taking notes, and willing to complete worksheet. Group discussed impacts of anger on mental health and identified triggers of anger to include: feeling disrespected by others, feeling overwhelmed/stressed, high expectations of self, anxiety, grief, and feeling out of control. Pt shared connecting with anger stemming from stress and shared that she has experienced this frequently in the pasr. Shared her emotions underlying anger include: anxiety/stress, fear, and feeling disrespected. Group discussed common ways anger is expressed and Pt identified the following ways she expresses anger: crying, eating more, and throwing a mini ?pity libertarian?. Pt seemed to benefit from increased awareness of how unmanaged anger can impact self and others. Progress noted in pt self-report of improved mood and ability to identify skills for anxiety management, though continues to struggle with consistent skill application, boundaries, and distorted thinking impacting progress. Pt to continue IOP to increase ability to challenge thoughts, increase internal healthy coping skills, and prevent decompensation. Narrative Note: []
--- NOTE | 2020-08-16 11:10 | BH.SGPN.GN ---
Behaviors/Verbalizations/Mental Status: []Client alert and oriented, casually dressed and groomed. Eye contact good. Motor activity appropriate. Speech within normal limits. Affect unable to gather due to client wearing a mask for COVID-19 protocol. mood euthymic and anxious. Thoughts linear, logical, no signs of hallucinations or delusions. Client Response/Progress/Benefit: []Client was an engaged participant throughout group. Client helped the group identify common warning signs of anger and identified personal warning signs of anger which included: clenched teeth, increased heart rate, and stomach issues. Group brainstormed with group healthy coping skills to help manage anger which included: deep breathing, opposite action, exercise, taking breaks, music, slow tempo, and communication with supports. Client selected deep breathing, I-statements, and positive affirmations as the coping skills client wants to incorporate this week to manage anger. Client appeared to benefit from identifying different techniques to manage anger as well as gaining awareness of warning signs. Progress noted as client reports improved ability to challenge distortions. Will continue IOP tx to promote gains, further improve mood stability, and promote healthy boundary setting. Narrative Note: []
--- NOTE | 2020-08-16 11:54 | PCM.BH.PN_ITS ---
Progress Note Progress Note: History of Present Illness/Interim History: [] Patient is a 59-year-old female who is seen in follow-up at the [facility] [place] behavioral health IOP program. The patient states that she is doing pretty well overall and feels she is benefiting from the program. Her mood is much less de pressed than before. Her anxiety is better at times when her asthma gets more significantly symptomatic she also gets more anxious. The patient stopped her Effexor Exar on her own about 10 days ago. She states that when she was on the 75 mg of Effexor XR it made her too tired and too hard to get going in the morning. So she stopped it she is still taking the Wellbutrin however. Patient says that the Effexor however was helping her sleep and now she is having a little bit harder time sleeping. Other than that she continues to do fairly well. She denies any suicidal ideation or homicidal ideation. She denies hallucinations or delusions. She is dealing better with her current living situation with her son and his son and her [id number]. Biggest stressor right now really is her asthma when she has exacerbations of it. She did not feel a big decrease in mood after she stopped the Effexor. She did have an increase mild and anxiety and decreased sleep. Current Psychiatric Medications: [] Wellbutrin XL 150 mg p.o. every morning; Effexor XR 75 mg p.o. nightly was DC'd about 10 to 12 days ago by the patient. Mental Status Examination: [] Patient is a an obese female who appears normal for stated age and is seen wearing a mask due to the Covid pandemic. She is casually dressed and groomed with good hygiene. She has no psychomotor agitation or retardation. Eye contact is fair to good. Speech is normal rate and rhythm and fluent with no pressure. Mood is slightly depressed to euthymic. Affect is constricted. Thought process is goal-directed and organized. Thought content: No evidence of suicidal or homicidal ideation. No evidence of hallucinations or delusions. Judgment is intact. Insight: Good. Impulsivity: Low. Diagnoses: [] Bethune I: [] Major depressive disorder, recurrent, moderate; generalized anxiety disorder Bethune II: [] Negative Bethune III: [] Asthma, obesity, CHARLETTE Bethune IV:[]] Primary support, work and health issues Plan: [] The patient will continue the IOP program as the structure, support, education, individual and group therapy will continue hopefully to benefit the patient and prevent worsening of her symptoms. The risks, side effects and possible complications of the medications were again discussed with the patient and she understands and accepts these. She felt safe during the interview and if it anytime she does not feel safe she will let us know or go to the emergency room. The patient agrees to restart Effexor XR at the lower dose of 37.5 mg p.o. daily. She was tolerating that and was not too tired so she will start taking that at bedtime. A prescription was sent in for this. She will also continue her other medication. She will continue to follow-up with her outpatient psychiatric and medical providers.
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
--- NOTE | 2020-08-17 10:20 | BH.SGPN.GN ---
Behaviors/Verbalizations/Mental Status: []Client alert and oriented, casually dressed and appropriately groomed. Eye contact good. Motor activity appropriate. Speech within normal limits. Affect constricted, mood anxious. Thoughts linear, logical, no signs of hallucinations or delusions. Client Response/Progress/Benefit: []Client appeared engaged during session AEB client providing input at times and listened to others. Client worked with peers on defining goals and brainstormed with the group the benefits of goal setting. Client helped group discuss the barriers that keep people from either setting goals are following through with goals. Client appeared to connect with others how high expectations of self can make it difficult to accomplish goals. Client able to provide feedback during psychoeducation on SMART goals. Client appeared to benefit from learning the mental health benefits of setting goals that are SMART. Will continue IOP tx prevent decompensation, continue practicing healthy coping skills and challenge negative thoughts. Narrative Note: []
--- NOTE | 2020-08-17 11:15 | BH.SGPN.GN ---
Behaviors/Verbalizations/Mental Status: []Eye contact is good. Motor activity is appropriate. Appearance is neat. Speech is Appropriate. Mood is anxious, and euthymic. Affect is congruent. Thoughts are linear and logical. No evidence of psychosis Client Response/Progress/Benefit: []Client was engaged during discussion, did well to complete activity and process with the group. Client was willing to complete the worksheet in which she was challenged to develop a personal SMART goal. Client chose the goal; to do leg lifts and lower body exercises 3x a week for 60 minutes with 15-minute breaks. When asked why this goal was important and beneficial to client's mental health, she stated this will help client?s mood, reduce back pain, and improve self-image. Client identified her barriers which included: fatigue, self-hate talk, and negative thinking. Client receptive to identifying solutions for these barriers and willing to begin working on this goal. Benefited from this group by developing a short-term SMART goal related to mental health. Will continue IOP tx to promote gains made in managing depressive symptoms and to further improve use of healthy coping skills. Narrative Note: []
--- NOTE | 2020-08-22 09:01 | BH.SGPN.GN ---
Behaviors/Verbalizations/Mental Status: []Client alert and oriented, casually dressed and groomed. Eye contact good. Motor activity appropriate. Speech within normal limits. Affect congruent, mood euthymic. Thoughts linear, logical, no signs of hallucinations or delusions. Reviewed client?s symptom tracker, suicidal ideation noted as 1/5 which is more elevated than typical baseline, however denies any risk. Will check-in with a therapist prior to leaving for the day. Client Response/Progress/Benefit: []Client receptive to session, engaged throughout and provided supportive feedback throughout. Client reports feeling wound-up this morning. Attributes current emotions to having the day off from watching her grandson and looking forward to taking some time for herself. Expressed that although she loves her grandson, she struggles with setting boundaries with his parents and often puts caring for him over her own self-care. Discussed current positives as making progress in this area by better setting boundaries and actively reminding herself of the importance of breaks and self-care on her mental health. Client appeared to benefit from support provided by peers and reflecting on personal progress. Progress noted in pt self-report of improved anxiety management and reduced depressive sx, though continues to struggle with consistency. Will continue IOP tx to prevent decompensation and continue to promote mood stability as client completes aftercare planning. Narrative Note: []
--- NOTE | 2020-08-22 11:19 | BH.SGPN.GN ---
Behaviors/Verbalizations/Mental Status: []Client alert and oriented, neatly dressed and groomed. Eye contact good. Motor activity appropriate. Speech within normal limits. Affect congruent, mood euthymic. Client Response/Progress/Benefit: []Client responded well to session, connecting with peers and receptive to supportive statements. Client engaged in the boundary self-assessment activity and attentive during psychoeducation on the different boundary styles. Client connected most with porous boundaries and shared ?I?m extremely porous with my loved ones and I get sick of it.? Client participated in brainstorming strategies to improve boundary setting and reports wanting to work on setting more time boundaries with herself and family. Progress noted in client?s report of improved mood stability and increased ability to challenge negative thoughts. Client to continue IOP tx and discharge at the end of the week Narrative Note: []
--- NOTE | 2020-08-23 09:02 | BH.SGPN.GN ---
Behaviors/Verbalizations/Mental Status: []Client alert and oriented, neatly dressed and groomed. Eye contact good. Motor activity appropriate. Speech within normal limits. Affect congruent, mood anxious. Thoughts linear, logical, no signs of hallucinations or delusions. Reviewed client?s symptom tracker, no risk for suicidal ideation, plan, or intent as of 08/23/20. Client Response/Progress/Benefit: []Client responded well to session, providing supportive statements. Client reports feeling anxious this morning because this is client's last week of IOP. Client reflected on the coping skills she has been using to manage emotions and symptoms. Client reported I've been trying to do nice things for me such as self-care and self-love. Client reports ongoing stressors at home, especially related to conflict between client and her [id number]. The group gave client feedback, encouraged self-care and boundary setting, and gave client alternative perspectives. Appeared to benefit from processing current stressors and reflecting on application of coping skills. Client will continue IOP tx and discharge tomorrow 08/24/20. Client can benefit from one more IOP today to reinforce healthy coping skills and provide closure. Narrative Note: []
--- NOTE | 2020-08-23 11:20 | BH.SGPN.GN ---
Behaviors/Verbalizations/Mental Status: [] Client alert and oriented, casually dressed and groomed. Eye contact good. Motor activity appropriate. Speech within normal limits. Affect congruent, mood euthymic. Thoughts linear, logical, no signs of hallucinations or delusions Client Response/Progress/Benefit: []Client responded well to session, actively listening and taking notes though remained mostly passive in participation. Group discussed the different categories of coping skills which included distraction, emotional release, grounding, self-love, and thought challenging. Client appeared to connect with examples provided by fellow participants for each coping category and provided some examples of skills she uses for herself. Client participated in creating a coping skills ?menu? for the five categories of coping skills. Client's coping skill menu included: learning new things, whistling, crying, baking, boundaries, and creating a healthy routine . Shared wanting to focus on more active application of healthy distraction skills by more actively setting aside time to do things she enjoys outside or cleaning her bedroom. Client progress noted in self-report of improved confidence and decreased depressive sx. Appeared to benefit from increasing repertoire of healthy coping skills. Will continue tx to further improve mood stability and communication skills, as well as prevent decompensation. Narrative Note: []
--- NOTE | 2020-08-23 14:20 | BH.MDN ---
Multi-Disciplinary Note - Note 60-min Individual Time Started:: 10:30 Date: 08/23/20 Purpose of session/treatment goals addressed:: The purpose of this session was to review client's progress and strategies that will promote mood stability and gains made in IOP. Another goal was to schedule outpatient services and process any current stressors. Eye Contact:: Good Motor Activity:: Appropriate Appearance:: Neat Speech:: Rambling Mood:: Anxious Affect:: Congruent - tearful while discussing discharge Thoughts:: Linear, Logical, No evidence of hallucinations/delusions noted Staff Interventions:: Therapist used open-ended questions to explore client's thoughts on personal progress. Therapist also provided emotional support and helped client problem-solve current stressors. Therapist reviewed supports and coping skills with client to promote gains and prevent setbacks. Therapist discussed aftercare plan with client and called with client to schedule outpatient mental health appointments at [facility]. Therapist discussed the benefits of ongoing maintenance and use of daily coping skills. Therapist gave client a quote collage for closure. Client Response:: Client responded well to session, open to meeting with therapist. Client reports feeling somewhat anxious about leaving, but stated she has more confidence in ability to cope now. Client also acknowledges that ?all good things come to an end.? Client able to schedule outpatient counseling and psychiatry at [facility]. Client plans to participate in IOP aftercare which client will start next week. Client reflected on her progress during IOP and reported that she has noticed increased self-care, not feeling so isolated, ?beginning to set boundaries?, consistent use of healthy coping skills, and reduced intensity of depressive symptoms. Client self-identified healthy coping skills that have helped client which included: 5-senses, deep breathing, taking breaks, distractions, self-care, and positive affirmations. Client continues to struggle with setting boundaries with her [id number] and son which causes client distress and anger. Client will work on this further in outpatient counseling. Risks/Concerns:: Client denies any suicidal ideations, plan, or intent as of 08/23/20. Progress Toward Goals/Plan:: Client has responded well to treatment and has made great progress while in IOP. Client self-reports overall improved mood, reduced isolation, increased knowledge, and improved self-care. Client reports increased ability to manage her emotions and improvements in challenging negative thoughts. Client still struggles with interpersonal relationship issues at home and with boundary setting. Client wants to continue to work on these with her outpatient therapist. Will discharge from [facility] on 08/24/20. Time Stopped:: 11:30
--- NOTE | 2020-08-23 14:51 | BH.AFTERPLAN ---
Aftercare Plan - Demographics Treatment End Date:: 08/24/20 Psychiatrist:: Anny Richards Psychiatrist Office #:: [phone] [facility]/IOP Therapist:: Radha Manzanares Therapist Phone #:: [phone] - Medications Home Medications: Home Medications Fluticasone Propionate [Flonase Allergy Relief] 2 spray NS DAILY 01/15/16 carvedilol 3.125 mg tablet 3.125 mg PO BID #60 tab 11/22/19 losartan 100 mg-hydrochlorothiazide 25 mg tablet 1 tab PO DAILY #90 tab 02/04/20 albuterol sulfate 2.5 mg CONTINUOUS NEBULIZATION BID PRN PRN #180 ml 05/05/20 bimatoprost 0.03 % eye drops 1 drp OPHTHALMIC DAILY 06/01/20 lorazepam 0.5 mg tablet 0.5 mg PO DAILY PRN #10 tab 06/06/20 miconazole nitrate 2 % topical powder 1 applic TOPICAL BID #85 g 06/06/20 metformin 850 mg tablet 850 mg PO BID #60 tab 06/13/20 tiotropium bromide 18 mcg capsule with inhalation device 1 cap INHALATION DAILY #30 inh 06/15/20 blood sugar diagnostic See Rx Instructions .ROUTE .MEDSUPPLY #200 ea 07/04/20 blood-glucose meter See Rx Instructions .ROUTE .MEDSUPPLY #1 ea 07/04/20 lancets 28 gauge See Rx Instructions .ROUTE .MEDSUPPLY #200 ea 07/04/20 buPROPion XL [Wellbutrin Xl] 150 mg PO DAILY 30 Days #30 tablet.xl 07/19/20 cetirizine 10 mg capsule 10 mg PO HS #30 cap 08/02/20 montelukast 10 mg tablet 10 mg PO QPM #30 tab 08/02/20 albuterol sulfate 90 mcg/actuation aerosol inhaler 2 puff INHALATION Q4H PRN PRN #18 g 08/11/20 Venlafaxine XR [Effexor Xr] 37.5 mg PO DAILY 30 Days #30 cap 08/16/20 - Plan Details Progress/Aftercare Plan Details:: Deja has made significant strides since starting IOP as shown by her improved mood, increased confidence in her skills, and increased ability to cope with daily stressors. When Deja started IOP she was experiencing significant depression, worthlessness, and isolation. Now, Deja can catch and challenge distortions that reinforced depression and hopelessness, use healthy coping skills more easily, and she feels more connected to others. Deja self-reports progress in the following areas: feeling less isolated, increased self-awareness and knowledge of coping skills, less negative self-talk, and improved boundaries. Deja was highly active in both group and individual therapy sessions. Deja contributed to group discussions, offered emotional support to peers, and followed through with her GAPs. In individual sessions, Deja was receptive to feedback, consistent with homework, and willing to reframe distorted thought patterns. Deja continues to struggle with setting boundaries with her son and [id number]. However, Deja would like to work on this with her outpatient therapist. Deja plans to attend IOP aftercare group which will start for Deja on 08/31/20. Strategies for Success:: 1. Thought challenging! Remember to challenge distortions and reframe your thinking! 2. self-care! You deserve to take time for you, which includes saying no when people ask too much from you. 3. Reach out to supports! You've been doing great with this, just remember to keep it up! 4. Challenge your perspective and practice self-compassion. Keep up with the sticky note affirmations around your house. 5. Practice mindfulness and grounding. 5-senses, listening to soothing sounds, deep breathing, and self-care 6. Set small, realistic goals. 7. Practice positive self-talk and keep track of your strengths. 8. Remember progress isn?t linear! You may have a setback or bump in the road, but that doesn?t mean you?ve lost all progress. 9. Boundaries!! Keep working on this! I know it?s tough, but it will be worth it. 10. Practice self-compassion and talk to yourself with love and patience. - Appointments Appointments/Referrals to Other Services:: 1. Aftercare for IOP starting on 08/31/20 at 2:00pm. 2. Individual counseling session with Felicitas Horton at [facility] in [place]. [address] Appointment at 9:00am on 08/30/20. 3. Follow up with outpatient psychiatry at [facility] in [place] [address] ([facility] office) on 09/19/20 at 3:50pm. Get there 30 minutes early for paperwork.
--- NOTE | 2020-08-24 09:00 | BH.SGPN.GN ---
Behaviors/Verbalizations/Mental Status: []Client alert and oriented, casual dress, hygiene tended to. Eye contact fair. Motor activity appropriate. Speech within normal limits. Affect congruent, mood euthymic. Thoughts linear, logical, no signs of hallucinations or delusions. Reviewed client?s symptom tracker, pt denies current suicidal thoughts or intention to date. Client Response/Progress/Benefit: []0Patient responded well to session as evidenced by her sharing thoughts and feelings and appeared to listen attentively to others. Patient stated today is her last day in IOP. Patient reported she has made significant progress since starting IOP. Patient reported she no longer feels like she is drowning because she now has the tools and skills to be able to help her self get back on track. Patient stated she will miss everyone's contributions which had helped her see things from a different perspective. Patient stated her emotion this morning is positive. Progress noted with patient reporting improved mood, increased use and understanding of healthy coping skills, and improved daily functioning. Patient to discharge today from IOP due to meeting her goals and no longer meeting medical necessity for this level of care. Narrative Note: []
--- NOTE | 2020-08-24 10:10 | BH.SGPN.GN ---
Behaviors/Verbalizations/Mental Status: []Client alert and oriented, casually dressed and groomed. Eye contact good. Motor activity appropriate. Speech within normal limits. Affect unable to gather due to wearing mask per COVID-19 protocol, mood anxious. Thoughts linear, logical, no signs of hallucinations or delusions. Client Response/Progress/Benefit: []Client was an active participant AEB providing input during discussion and listening attentively to others. Contributed to discussion of the quote and defined false fear as ?the fear of the unknown.? Did well to identify benefits of sitting with the uncomfortable as stated ?sitting with uncomfortable feelings can increase confidence.? Client connected with discussion on the difference between ?normal? anxiety and when anxiety becomes problematic. Gained awareness of personal physical symptoms of anxiety which included:increased body temperature, increased asthma attacks, increased heart rate, IBS, and nausea. Client identified her safety behavior as seeking reassurance to decrease anxiety for short-term. Client also identified her common cognitive distortions as ?what if? thinking. Client appeared to benefit from gaining insight into physical signs of anxiety, safety behaviors, and common cognitive distortions as well. Progress noted as client increased self-awareness of anxiety symptoms and understands which healthy coping skills to utilize when feeling anxious. Client will discharge from [facility] today as client has completed all treatment goals. Client has made significant progress and no longer meets criteria for program. Narrative Note: []
--- NOTE | 2020-08-24 11:12 | BH.SGPN.GN ---
Behaviors/Verbalizations/Mental Status: []Client alert and oriented, neatly dressed and groomed. Eye contact good. Motor activity appropriate. Speech within normal limits. Affect congruent, mood euthymic and anxious. Thoughts linear, logical, no signs of hallucinations or delusions. Client Response/Progress/Benefit: []Client was an active participant in group discussion and provided insight on group topic. Attentive during psychoeducation on mindfulness coping skills and their impact on her mental health wellness. Practiced 5-senses, guided imagery, and PMR with group. Client was able to identify self-soothing and mind-based coping skills she wants to incorporate into her current coping skill practice. The skills Client chose to practice were listening to music and reading/writing positive affirmations. Appeared to benefit from practicing in the moment coping skills. Client has made significant progress since starting IOP and will discharge today. Narrative Note: []
--- NOTE | 2020-08-24 13:36 | BH.DS_ITS ---
Discharge Summary - Demographics Date of Admission:: 06/16/20 Discharge Date: 08/24/20 Presenting Problems at Admission:: Client is a 59-year-old female with a history of depression and anxiety. Client was referred to [facility] by her PCP after scoring a 20 on the PHQ-9 which indicates severe depression. Prior to admission, client experienced many psychosocial stressors which included losing her job of 39 years, worsening health problems, family stress, and COVID-19 pandemic. Prior to losing her job, client passed out at work due to anxiety. At intake, client reported being overwhelmed with simple tasks and becoming tearful easily. Client endorsed a depressed mood, crying spells, isolative behaviors, increased appetite, hopelessness, poor focus, anhedonia, and worthlessness. Client also endorsed ruminations, avoidance behaviors, hoarding, restlessness, and panic attacks. At admission, client reported fleeting suicidal ideations with thoughts of methods such as driving in a bridge. Client's symptoms were impacting her ability to function at her baseline and complete ADLs. Discharge Diagnoses:: Major depressive disorder, recurrent, severe without psychosis F33.2; generalized anxiety disorder Reason for Discharge:: Client has made significant progress towards her treatment goals AEB her reduction in DSM-5 symptom scores, self-report of increased ability to challenge distortions, and improved functioning. Client no longer meets criteria for [facility] level of care and will transition to outpatient counseling and [facility] aftercare. - Treatment Progress During Treatment & Response: Client responded well to treatment demonstrated significant progress towards her treatment goals AEB a 47% reduction in DSM-5 scores and high engagement in group and individual sessions. Client?s scores for depression decreased by 50% and anxiety decreased by 30%. Client consistently reported using healthy coping skills including positive self-talk, thought challenging, goal setting, and self-care. Client struggled at times throughout [facility] to manage anxiety and negative thinking triggered by poor boundary setting and interpersonal conflict. However, at time of discharge client stated, ?I?m starting to learn how to set boundaries.? Client was an active group member who often gave insight to discussion, feedback to peers, and connects the topics to her daily life. Client was highly engaged in her individual sessions and was mostly consistent with homework and skill utilization outside of group. Client's consistent application of skills was likely the reason for her reduction in symptoms and improved mood. Client is scheduled with outpatient services at [facility] and would like to join the [facility] aftercare group. Issues Still to be Addressed:: Client can continue to benefit from outpatient counseling and aftercare at [facility] to reinforce healthy coping skills and maintain progress. Client can also continue working on further improving boundaries with her son and [id number], self-care, and use of thought challenging. Lastly, client would like to further improve her social supports. Discharge Recommendations/Instructions:: Client is recommended to follow up with [facility] aftercare which starts for client on 08/31/20. Client will be seeing a counselor and psychiatrist at [facility] for continuity of care. Client?s first therapy appointment is 08/30/20 with Felicitas Horton and 09/19/[address] Alcala. Discharge Handout: Complete Discharge Handout with client on aftercare options and continuity of care.
== END 2020-08-26 23:59 ==
LOC: BHIOP 09:00
PROVIDERS: PCP Internal Medicine; Referring Provider Psychiatry & Neurology Psychiatry; Visit Provider Psychiatry & Neurology Psychiatry
DX: F33.2 Major depressive disorder, recurrent severe without psychotic features (principal); F41.8 Other specified anxiety disorders; E66.9 Obesity, unspecified; G47.33 Obstructive sleep apnea (adult) (pediatric); J45.909 Unspecified asthma, uncomplicated; Z79.899 Other long term (current) drug therapy
CPT/HCPCS: H0035; 90832; 90834; 90837; 90853

== ENCOUNTER 2020-08-31 13:55 | Outpatient (RCR) | payer BC, SELFPAY ==
[2020-07-04 08:55] VITALS: BMI 43.4
--- NOTE | 2020-08-31 14:00 | BH.SGPN.GN ---
Behaviors/Verbalizations/Mental Status: []Client alert and oriented, neatly dressed and groomed. Eye contact good. Motor activity appropriate. Speech within normal limits. Affect congruent, mood euthymic. Thoughts linear, logical, no signs of hallucinations or delusions. Client Response/Progress/Benefit: []Client receptive of session, engaged throughout and notes feeling ?mellow? today. Client shared she had a good weekend with her family and that her grandson started preschool which means more self-care time for client. Client reported she was also productive this week which made client feel good. Client reports using goal setting and self-talk to cope with her emotions this week. Receptive of discussion on personal accountability and its importance in maintaining mental health stability. Engaged in discussion on different accountability styles and brainstorming strategies for improving ability to hold themselves accountable. Client identified that for homework she wants to finish cleaning and rearrange her bedroom before next week. Client reported she can hold herself accountable by telling someone outside of [facility] her goal as this will motivate client. Client seemed to benefit from support from peers and increasing understanding of personal accountability benefits and strategies. Progress noted in client?s application of coping skills and optimistic perspective on college. Will continue [facility] aftercare group. Narrative Note: []
--- NOTE | 2020-09-08 11:41 | BH.MTP ---
Master Treatment Plan - Patient Information Program Physician:: Dr. Anny Richards Primary Therapist:: Radha Manzanares - Psychiatric Diagnoses Psychiatric Diagnoses:: Major depressive disorder, recurrent, moderate; generalized anxiety disorder. Diagnosis Code(s):: F 33.2 - Estimated LOS Estimated LOS (in weeks):: 12 Problem/Goal #1 - Problem/Goal #1 Stated Goal:: Client will maintain or see a reduction in symptoms AEB client score on the DSM 5 cross-cutting measure and improve client's daily functioning. - Objectives Objective #1 Stated Objective: Client will continue to consistently apply healthy coping skills to maintain progress made in IOP tx. Interventions: Through group therapy, client will review warning signs and triggers as well as healthy coping skills learned in IOP tx to successfully maintain gains while transitioning into outpatient therapy. Discharge Criteria: Client will have accomplished this goal when client's score on the DSM-5 cross-cutting measure has either maintained or reduced over a 12 week period. Target Date: 11/23/20 Review Date: 09/28/20 Objective #2 Stated Objective: Client will learn and utilize 2-3 maintenance strategies to prevent decompensation. Interventions: Through group therapy, client will be provided with education on healthy maintenance behaviors, relapse prevention techniques, and healthy coping strategies. Discharge Criteria: Client will have accomplished this goal when can report using at least 2 maintenance skills to prevent decompensation. Target Date: 11/23/20 Review Date: 09/28/20
--- NOTE | 2020-09-14 14:01 | BH.SGPN.GN ---
Behaviors/Verbalizations/Mental Status: []Client alert and oriented, neat and casual dress, hygiene tended to. Eye contact good. Motor activity appropriate. Speech within normal limits. Affect congruent, mood anxious. Thoughts linear, logical. No signs of hallucinations or delusions. Client Response/Progress/Benefit: []Client responded well to session, attentive and engaged throughout. Client reported she has made progress on goal to practice more self-care through fostering her own creativity. Identified skills used to work towards goal as: using grounding skills, setting aside specific self-care time, taking breaks, and challenging herself to engage in activities she might not usually. Client stated stressor today as discovering that she is going to have to start using oxygen due to her asthma. Receptive of and appeared to benefit from group support in reframing negative thoughts regarding her current stressor. Contributed during discussion on making healthy choices and the barriers that prevent doing so. Client identified personal barriers to be: negative thought patterns, fear of the unknown, unrealistic expectations, and poor boundaries. Client attentive throughout discussion of strategies to improve healthy decision making. Noted wanting to improve healthy decision making regarding personal relationships and selected the strategies of establishing consistent boundaries as well as communicating these boundaries with her supports as the game plan for the week. Appeared to benefit from reflecting on application of coping skills, identifying barriers, and creating a game plan to improve healthy decision-making skills. Narrative Note: []
== END 2020-09-25 23:59 ==
LOC: BHOG 13:55
PROVIDERS: PCP Internal Medicine; Referring Provider Psychiatry & Neurology Psychiatry; Visit Provider Psychiatry & Neurology Psychiatry
DX: F33.2 Major depressive disorder, recurrent severe without psychotic features (principal); F41.1 Generalized anxiety disorder
CPT/HCPCS: 90853

== ENCOUNTER → 2020-09-07 08:08 | Outpatient (CLI) | payer BC, SELFPAY ==
[2020-06-05 08:39] VITALS: BMI 47.4
[2020-07-04 08:55] VITALS: BMI 43.4
--- NOTE | 2020-09-07 09:10 | EKG12_ITS ---
Test Reason : ROUTINE Blood Pressure : / mmHG Vent. Rate : 077 BPM Atrial Rate : 077 BPM P-R Int : 156 ms QRS Dur : 100 ms QT Int : 406 ms P-R-T Axes : 054 -16 071 degrees QTc Int : 459 ms Normal sinus rhythm Septal infarct (cited on or before 07-APR-2019) Abnormal ECG Confirmed by TANISHA MACHADO, BRYAN ([id number]), script editor JEAN PAUL PALENCIA ([id number]) on 09/11/2020 1:12:00 PM Referred By: Rosalva Meyers Confirmed By:CANDICE GARAY MD
--- NOTE | 2020-09-07 17:39 | PFTCOMP ---
COMPLETE PULMONARY FUNCTION TEST INTERPRETATION Brief HPI: Patient is a 59 year old female, currently under the care of Dr. Gant, who presents to [facility] for complete pulmonary function tests secondary to diagnosis of asthma. Respiratory therapist reports good effort and reproducible results. Interpretation: Forced expiration spirometry shows a severe large airways obstructive ventilatory defect with an FEV1 of 44% predicted. There is a significant bronchodilator response in FVC and FEV1 by strict ATS criteria. Spirograms are of good quality and plateau slowly, indicating slowly emptying areas of the lungs. The respiratory flow volume loop shows decreased expiratory flow rates at all lung volumes consistent with airway obstruction. Lung volumes by body plethysmography show a decreased total lung capacity at 4.38 L, 80% predicted. FRC and RV are elevated out of proportion. Lung volume measurements are consistent with air-trapping. Diffusion capacity by carbon monoxide is decreased at 54% predicted. The airway resistance is elevated. Compared to previous pulmonary function tests from 05/14/2019, there is been no significant change. Impression: Partially reversible severe mixed ventilatory defect with symmetric reduction in diffusing capacity
== END ==
PROVIDERS: PCP Internal Medicine; Referring Provider Nurse Practitioner Acute Care; Visit Provider Nurse Practitioner Acute Care
DX: J45.50 Severe persistent asthma, uncomplicated (principal); I10 Essential (primary) hypertension
CPT/HCPCS: 93005; 94060; 94726; 94729

== ENCOUNTER → 2020-09-14 07:55 | Outpatient (CLI) | payer BC, SELFPAY ==
[2020-06-05 08:39] VITALS: BMI 47.4
[2020-07-04 08:55] VITALS: BMI 43.4
[2020-09-14 08:15] VITALS: PULSE 100; PULSE 112; PULSE 113; PULSE 114; PULSE 117; PULSE 125; PULSE 83; PULSE 90; O2SAT 87; O2SAT 89; O2SAT 90; O2SAT 91; O2SAT 92
--- NOTE | 2020-09-14 08:41 | CPS ---
At the 4 minute point pt was 87%. 2lpm of oxygen was applied. Pt came up to 95%. Remainder of walk performed with 2 lpm of oxygen.
--- NOTE | 2020-09-15 13:24 | PCM.PSN.6M ---
PSN 6 Minute Walk Test - 6 Minute Walk Test 6 Minute Walk Test: 6 Minute Walk Test PSN:6-Minute Walk Test Start: 09/14/20 08:37 Freq: Status: Active Protocol: [id number] Document 09/14/20 08:15 [facility] (Rec: 09/14/20 08:45 [facility] [id number]) 6 Minute Walk Test Date Performed 09/14/20 Time Performed 08:15 Height 5 ft 7 in Weight: 298 lb Weight in Pounds 298.[address]: Titi Assistive device used: None Pre-test Oxygen Delivery Method Room Air Pulse Ox (%) 92 Pulse Rate (60-100 beats/min) 83 Dyspnea Tisha Scale (0-10) 0 Exertion Tisha Scale (6-20) 6 1st minute Oxygen Delivery Method Room Air Pulse Ox (%) 89 Pulse Rate (60-100 beats/min) 100 2nd minute Oxygen Delivery Method Room Air Pulse Ox (%) 90 Pulse Rate (60-100 beats/min) 114 H Number of Rests Taken 1 3rd minute Oxygen Delivery Method Room Air Pulse Ox (%) 90 Pulse Rate (60-100 beats/min) 113 H Number of Rests Taken 1 4th minute Oxygen Delivery Method Room Air Pulse Ox (%) 87 Pulse Rate (60-100 beats/min) 117 H Dyspnea Tisha Scale (0-10) 2 Exertion Tisha Scale (6-20) 13 5th minute Oxygen Flow Rate (L/min) (L/min) 2 Oxygen Delivery Method Nasal Cannula Pulse Ox (%) 92 Pulse Rate (60-100 beats/min) 112 H Number of Rests Taken 1 6th minute Oxygen Flow Rate (L/min) (L/min) 2 Oxygen Delivery Method Nasal Cannula Pulse Ox (%) 91 Pulse Rate (60-100 beats/min) 125 H Dyspnea Tisha Scale (0-10) 2 Exertion Tisha Scale (6-20) 13 Post-test Oxygen Delivery Method Room Air Pulse Ox (%) 92 Pulse Rate (60-100 beats/min) 90 Full Laps Walked 14 Partial Lap, Number of Tiles Walked 43 Total Distance Walked (ft) 869 09/14/20 08:41 [facility]iopulmonary Services by Ann Ball At the 4 minute point pt was 87%. 2lpm of oxygen was applied. Pt came up to 95%. Remainder of walk performed with 2 lpm of oxygen. Initialized on 09/14/20 08:41 - END OF NOTE - Interpretation Interpretation: The patient ambulated 869 feet over the course of 6 minutes beginning on room air without assistive devices or breaks. Pretesting oxygen saturation was noted to be 92% on room air. With ambulation, the rehana oxygen saturation was 87%. 2 L/min of supplemental oxygen was applied and the patient was able to complete the remainder of the test while maintaining appropriate saturations. - Recommendations Recommendations: 2 L/min of supplemental oxygen should be utilized with exertion.
== END ==
PROVIDERS: PCP Internal Medicine; Referring Provider Nurse Practitioner Acute Care; Visit Provider Nurse Practitioner Acute Care
DX: J45.50 Severe persistent asthma, uncomplicated (principal)
CPT/HCPCS: 94618

== ENCOUNTER 2020-09-28 13:39 | Outpatient (RCR) | payer BC, SELFPAY ==
[2020-09-20 12:37] VITALS: BMI 46.6
--- NOTE | 2020-09-28 14:00 | BH.SGPN.GN ---
Behaviors/Verbalizations/Mental Status: []Client alert and oriented, neatly dressed and groomed. Eye contact good. Motor activity appropriate. Speech within normal limits. Affect congruent, mood . Thoughts linear, logical, no signs of hallucinations or delusions. euthymic Client Response/Progress/Benefit: []Client responded well to session, checking in using GAPS. Client?s emotion today is ?great and content? as client is glad to be with IOP peers. Client reported multiple wins including asserting herself with family, getting a kitten, and practicing self-care. Client states using self-talk and self-care to cope with daily stressors. Client continues to report conflict between her son and daughter in-law at home. Receptive of discussion on self-talk and its influence in maintaining long-term mental health stability. Contributed to strategies for improving effective creation and application of believable personal affirmations. Client?s affirmational statements were ?I am stronger than I know? and ?I have been through this before I can get through it again.? Progress noted in client?s ability to reframe negative thinking and practice self-care. Client to continue aftercare group to promote gains and further increase application of healthy coping skills. Narrative Note: []
--- NOTE | 2020-09-28 14:11 | BH.TPR ---
Treatment Plan Review Date of Admission:: 08/31/20 Date of Treatment Plan Review:: 09/28/20 Admitting Diagnoses:: Major depressive disorder, recurrent, moderate; generalized anxiety disorder. Current Diagnoses:: Major depressive disorder, recurrent, moderate; generalized anxiety disorder. Patient's Response to Treatment:: Client is engaged in IOP aftercare as evidenced by client's participation in group discussions, self-report of consistently applying coping skills, and self-report of ongoing mood stability. Client has missed a few sessions due to health reasons, but when client is in group she is highly engaged. Status of Current Problems and Symptoms: Client reports ongoing stress about setting boundaries with family and communicating her needs. Client also has ongoing health issues that impact client?s sleep and breathing, making it difficult to function at her baseline at times. Problem #1 Problem Name:: Client will maintain or see a reduction in sx AEB client score on the DSM-5 Status of Goals:: Objective 1- Complete with ongoing work encouraged. Overall client?s mental health symptoms decreased by 46% per DSM-5 report. Client?s depression decreased by 75% and anxiety stayed the same.Objective 2- Complete with ongoing work encouraged. Client reported she has been reaching out to support, practicing self-care, and challenging negative thoughts. Team Recommendations:: Team recommends client continue IOP aftercare group in addition to attending regular outpatient counseling in order to promote mood stability and emotional regulation.
--- NOTE | 2020-10-12 14:00 | BH.SGPN.GN ---
Behaviors/Verbalizations/Mental Status: []Client alert and oriented, neatly dressed and groomed. Eye contact good. Motor activity appropriate. Speech within normal limits. Affect congruent, mood euthymic. Thoughts linear, logical, no signs of hallucinations or delusions. Client Response/Progress/Benefit: []Client responded well to session, checked in using her GAPs worksheet. Client?s goal from last session was to write out positives each day and client reports this has been helpful. Client states she has been reframing negative thoughts and communication has improved with her family. Client reports the holiday season can be stressful, but client stated challenging her expectations can make it less stressful. Client engaged well during the discussion of the components of self-compassion. Client connected with the benefits of self-compassion and agreed with peers that it is much easier to be compassionate to others than to self. Client participated in the activity of reframing a recent setback using self-compassion. Client used the example of having negative self-talk. Client was able to reframe this situation using self-compassion and stated, ?I deserve love and to forgiveness.? Client stated she tells herself this statement daily. Client appeared to benefit from practicing self-compassion and connecting with peers. Will continue aftercare to promote mood stability and reinforce healthy coping skills. Narrative Note: []
== END 2020-10-26 23:59 ==
LOC: BHOG 13:39
PROVIDERS: PCP Internal Medicine; Referring Provider Psychiatry & Neurology Psychiatry; Visit Provider Psychiatry & Neurology Psychiatry
DX: F33.1 Major depressive disorder, recurrent, moderate (principal); F41.1 Generalized anxiety disorder
CPT/HCPCS: 90853

== ENCOUNTER → 2020-10-03 11:12 | Outpatient (CLI) | payer BC, SELFPAY ==
[2020-10-03 10:42] VITALS: BMI 45.4
[2020-10-03 12:29] LABS: Anion Gap 5 (5-15); BUN 16 mg/dL (7-18); BUN/Creat Ratio 18.7 RATIO (10-20); Calcium,Total 9.4 mg/dL (8.5-10.1); Chloride 99 mmol/L (98-107); Creatinine, Serum 0.86 mg/dL (0.55-1.02); EST Glomerular Filtration Rate 71 mL/min (>60); Est Glom Filt Rate - Afr Amer 86 mL/min (>60); Glucose 137 mg/dL (74-106); Potassium 4.1 mmol/L (3.5-5.1); Sodium Level 138 mmol/L (136-145)
[2020-10-03 12:55] LABS: Hemoglobin A1c 7.2 % (3.8-5.6)
[2020-10-03 14:02] LABS: Microalbumin,Random Urine 28.8 mg/L (NO RANGE EST.); Microalbumin:Creatinine Ratio 21.8 mg/g CRE (<30 mg/g CRE)
== END ==
PROVIDERS: PCP Internal Medicine; Referring Provider Internal Medicine; Visit Provider Internal Medicine
DX: E11.9 Type 2 diabetes mellitus without complications (principal)
CPT/HCPCS: 36415; 80048; 82043; 82570; 83036

== ENCOUNTER 2020-11-16 14:00 | Outpatient (RCR) | payer BC, SELFPAY ==
[2020-10-03 10:42] VITALS: BMI 45.4
--- NOTE | 2020-11-09 14:00 | BH.SGPN.GN ---
Addendum entered and electronically signed by Lakisha Fleming, [facility] 12/25/20 09:31: Client was not billed. Disregard note. Original Note: Behaviors/Verbalizations/Mental Status: []Client alert and oriented, casual appearance. Eye contact good. Motor activity appropriate. Speech within normal limits. Affect congruent. Mood euthymic. Thoughts linear, logical, no signs of hallucinations or delusions. Client Response/Progress/Benefit: []Pt engaged in session as evidenced by pt openly sharing thoughts and feelings, listening attentively to others, and providing input throughout. Pt stated she used support last week when upset after an argument with her son and [id number]. Pt reported she found it helpful to talk it out with another person. Pt identified a mental health positive is her starting to work through her IOP binder again to refresh self on her skills. Pt engaged in discussion about benefits of self-care. Pt stated for her self-care plan for the week she will engage in: eating healthy, journaling, asking for help, practice forgiveness, yoga, relax and get coffee with a friend. Pt seemed to benefit from creating a self-care plan to increase consistent use of self-care. Progress noted with pt reporting improved mood. Pt to continue aftercare group to continue use of healthy coping and prevent further decompensation. Narrative Note: []
--- NOTE | 2020-11-16 14:00 | BH.SGPN.GN ---
Behaviors/Verbalizations/Mental Status: []Client alert and oriented, neatly dressed and groomed. Eye contact good. Motor activity appropriate. Speech within normal limits. Affect constricted, mood dysthymic. Thoughts linear, logical, no signs of hallucinations or delusions. Client Response/Progress/Benefit: []Client responded well to session, provided input, and listened attentively to peers. Reported feeling ?down? today as client shared, she has been struggling to be productive at home. Client reports this leads to beating herself up, but client has been trying to combat this. Client missed IOP last week and she reports feeling glad to be here today. Client engaged in discussion on self-advocacy. Worked with group to identify the benefits of self-advocacy, as well as common barriers. Reviewed the personal bill of rights and shared she does well to know she has the right to feel comfortable around people. Worked with group to identify strategies to increase ability to advocate for oneself. Reported she wants to work on reminding herself that she has the right to change and grow. Client seemed to benefit from reviewing treatment progress and skill application, as well as learning about how to increase self-advocacy. Client to continue aftercare to promote use of healthy coping skills and mood stability. Narrative Note: []
--- NOTE | 2020-11-16 15:36 | BH.MTP_ITS ---
Treatment Plan Review Date of Admission:: 08/31/20 Date of Treatment Plan Review:: 11/02/20 Admitting Diagnoses:: F33.1 Major depressive disorder, recurrent, moderate; generalized anxiety disorder. Current Diagnoses:: F33.1 Major depressive disorder, recurrent, moderate; generalized anxiety disorder. Patient's Response to Treatment:: Client has missed the last 3 aftercare sessions due to health reasons and aftercare not being held on a holiday. When client has attended she is highly engaged AEB her contributing thoughts to discussion and providing feedback to others. Status of Current Problems and Symptoms: Due to client not being in aftercare for the past three weeks this fha underwriter is unsure of patient's current status. Client had been reporting stress and anxiety about medical problems and relationship with son and [id number]. Problem #1 Problem Name:: Client will maintain or see a reduction in sx AEB client score on the DSM-5 Status of Goals:: Objective 1 - DSM 5 scores not obtained due to client cancelling atteding aftercare today. Client to continue objective. Objective 2 - Complete with ongoing work encouraged. Client reported she has been reaching out to support, practicing self-care, and challenging negative thoughts. Team Recommendations:: Team recommends client continue aftercare group in addition to attending regular outpatient counseling in order to promote mood stability and emotional regulation.
== END 2020-11-26 23:59 ==
LOC: BHOG 14:00
PROVIDERS: PCP Internal Medicine; Referring Provider Psychiatry & Neurology Psychiatry; Visit Provider Psychiatry & Neurology Psychiatry
DX: F33.1 Major depressive disorder, recurrent, moderate (principal); F41.1 Generalized anxiety disorder
CPT/HCPCS: 90853

== ENCOUNTER 2020-12-21 14:00 | Outpatient (RCR) | payer BC, SELFPAY ==
[2020-10-03 10:42] VITALS: BMI 45.4
--- NOTE | 2020-12-21 02:00 | BH.SGPN.GN ---
Behaviors/Verbalizations/Mental Status: []Client alert and oriented, casually dressed, hygiene tended to. Eye contact good. Motor activity appropriate. Speech within normal limits. Affect constricted, mood euthymic and anxious. Thoughts linear, logical, no signs of hallucinations or delusions. Client Response/Progress/Benefit: []Client responded well to session, attentive and engaged throughout. Client reported her stressor as her declined health and breathing which has been a barrier to attending IOP aftercare. Identified acceptance, thought challenging, gratitude, and affirmations as healthy coping skills. Reported continuing working on her gameplan to increase self-love. Contributed to discussion of personal barriers and strategies to improve healthy decisions. Client?s goal with healthy decisions is to ask others for help to clean her house. Appeared to benefit from reflecting on application of coping skills, identifying barriers, and creating a game plan to improve healthy decision-making skills. Will continue IOP aftercare to continue the use of healthy coping skills, decrease depressive symptoms, and challenge negative thoughts. Narrative Note: []
--- NOTE | 2020-12-21 14:33 | BH.TPR ---
Treatment Plan Review Date of Admission:: 08/31/20 Date of Treatment Plan Review:: 12/21/20 Admitting Diagnoses:: Major depressive disorder, recurrent, moderate F33.2; generalized anxiety disorder. Current Diagnoses:: Major depressive disorder, recurrent, moderate F33.2; generalized anxiety disorder. Patient's Response to Treatment:: Client has missed several aftercare sessions due to health reasons that are exacerbated by being out in the cold weather. When client has attended she is highly engaged AEB her contributing thoughts to discussion and providing feedback to others. Status of Current Problems and Symptoms: Client had missed several aftercare sessions and has not been able to socialize as much which has impacted client's mood. Client is currently reporting an increase in depressive symptoms since starting IOP aftercare. This increase is likely due to client's self-report of stressors with her son and [id number], the cold weather, and worsening health issues that impact client's ability to function. Client also continues to struggle with boundary setting which reinforces mental health symptoms. Problem #1 Problem Name:: Pt will maintain or see a reduction in sx AEB client score on the DSM-5 Status of Goals:: Objective 1 ? not complete. Client?s DSM-5 scores for depression have increased since admission to IOP aftercare (see above). Client?s scores for anxiety have maintained since IOP discharge which is positive. Client to continue objective. Objective 2 - Complete with ongoing work encouraged. Client reported she has been reaching out to support, practicing self-care, and challenging negative thoughts. However, client can continue to improve her boundary setting at home to reduce anger and anxiety. Team Recommendations:: Team recommends client continue aftercare group in addition to attending regular outpatient counseling in order to promote mood stability and emotional regulation. Client is unable to do telehealth, but was offered this service.
== END 2020-12-24 23:59 ==
LOC: BHOG 14:00
PROVIDERS: PCP Internal Medicine; Referring Provider Psychiatry & Neurology Psychiatry; Visit Provider Psychiatry & Neurology Psychiatry
DX: F33.2 Major depressive disorder, recurrent severe without psychotic features (principal); F41.1 Generalized anxiety disorder
CPT/HCPCS: 90853

== ENCOUNTER 2020-12-28 14:00 | Outpatient (RCR) | payer BC, SELFPAY ==
[2020-12-22 13:56] VITALS: BMI 47.4
--- NOTE | 2020-12-28 14:00 | BH.SGPN.GN ---
Behaviors/Verbalizations/Mental Status: []Client alert and oriented, neatly dressed and groomed. Eye contact good. Motor activity appropriate. Speech within normal limits. Affect congruent, mood agitated. Thoughts linear, logical, no signs of hallucinations or delusions. Client Response/Progress/Benefit: []Pt responded well to session AEB pt providing input during discussion and listening attentively to peers. Pt reported today she is feeling overall ?alright? as pt has cleaned at home and made it to IOP. However, pt continues to report confrontation and tension at home with her [id number]. The group again reinforced the importance of boundary setting. Pt reports she has made some progress as pt has begun to address issues rather than ignore them. Pt engaged in discussion about self-love. Connected with others that although self-care is challenging, it is vital for mental health wellness. Group discussed barriers they have faced that prevented self-love. Pt stated it has been hard to practice self-love because of years of negative self-talk, but it is possible to change. Pt worked with group to identify strategies to increase self-love. Pt reported she wants to work on self-love by proactively preparing healthy meals and snacks for the evenings. Pt seemed to benefit from reviewing treatment progress and stressors as well as learning about how to increase self-love. Pt to continue aftercare program to maintain treatment progress, continue use of healthy coping, and prevent decompensation. Narrative Note: []
--- NOTE | 2021-01-18 15:37 | BH.DS ---
Discharge Summary - Demographics Date of Admission:: 08/31/20 Discharge Date: 01/18/21 Presenting Problems at Admission:: Client discharged from [facility] tx and transitioned to IOP aftercare to promote gains client made in [facility] of reducing depression and anxiety. At admission, client reported ongoing issues with boundary setting, family stressors, and chronic negative thinking. Client also had limited supports and struggled at times to use opposite action. Additionally, client suffered from several health issues that impacted client?s functioning and mental health. Discharge Diagnoses:: Major depressive disorder, recurrent, moderate; generalized anxiety disorder. Reason for Discharge:: Due to multiple cancellations and ongoing health issues, client was unable to meet the attendance requirement for IOP aftercare and will be discharged. Client will continue with outpatient counseling. - Treatment Progress During Treatment & Response: Client demonstrated variable progress in IOP aftercare as client?s attendance was inconsistent due to health issues. When client was in attendance, she was an active participant and provided support to peers. Client reported benefit from peer connection and was receptive to feedback and support from staff. Client struggled throughout aftercare to set boundaries with her son and [id number] which impacted client mental health. Client did not complete the DSM-5 due to lack of attendance. Will discharge and continue with traditional outpatient counseling. Issues Still to be Addressed:: Throughout his time in IOP aftercare, client continued to report family stressors which impacted client?s mental health. Client struggled with setting and maintaining boundaries as well as practicing self-care. Client can also continue to work on thought challenging and using opposite action. Discharge Recommendations/Instructions:: Client will continue to follow up with her outpatient medical and mental health providers. Client's therapist was meeting with client via telehealth and client had asked for options for providers who would do in person. This therapist gave client [facility] in [place], but did not wish to seek services there. Client was also encouraged to explore [facility] for social support. Discharge Handout: Complete Discharge Handout with client on aftercare options and continuity of care.
== END 2021-01-24 23:59 ==
LOC: BHOG 14:00
PROVIDERS: PCP Internal Medicine; Referring Provider Psychiatry & Neurology Psychiatry; Visit Provider Psychiatry & Neurology Psychiatry
DX: F33.1 Major depressive disorder, recurrent, moderate (principal); F41.1 Generalized anxiety disorder
CPT/HCPCS: 90853

== ENCOUNTER → 2021-01-29 12:37 | Outpatient (CLI) | payer BC, SELFPAY ==
[2021-01-29 12:49] LABS: Absolute Neutrophil Count 5.6 X10^3/uL (2.0-7.7); Basophil# 0.08 X10^3/uL; Basophil% 0.9 % (0-1); Eosinophils% 2.3 % (0-5); Hematocrit 43.3 % (37-47); Hemoglobin 12.9 g/dL (12.0-15.0); Lymphocyte % 25.1 % (19-41); Mean Corp Hgb Conc 29.8 g/dL (32-36); Mean Corpuscular Hgb 25.7 pg (27.0-32.0); Mean Corpuscular Volume 86.4 fL (81-99); Mean Platelet Vol. 8.9 fl (6.2-12.0); Monocyte# 0.59 X10^3/uL; Monocyte% 6.7 % (0-10); NRBC Flagged by Analyzer 0 % (0-5); Neutrophil % 64.1 % (47-70); Platelet Count 250 K/mm3 (150-450); RBC Distribution Width CV 14.5 % (11.6-14.6); RBC Distribution Width SD 45.9 fl (35.1-43.9); Red Blood Count 5.01 M/mm3 (4.2-5.4); White Blood Count 8.8 K/mm3 (4.4-11.0)
== END ==
PROVIDERS: PCP Internal Medicine; Referring Provider Nurse Practitioner Acute Care; Visit Provider Nurse Practitioner Acute Care
DX: J45.40 Moderate persistent asthma, uncomplicated (principal)
CPT/HCPCS: 36415; 85025

== ENCOUNTER → 2022-03-13 | Outpatient (CLI) | payer OTHER, MEDICAID, SELFPAY ==
[2022-03-13 12:14] LABS: Absolute Lymphocyte Count 1.55 X10^3/uL (0.83-4.51); Absolute Neutrophil Count 4.2 X10^3/uL (2.0-7.7); Basophil# 0.05 X10^3/uL; Basophil% 0.8 % (0-1); Eosinophil# 0.19 X10^3/uL; Eosinophils% 2.9 % (0-5); Hematocrit 42.5 % (37-47); Hemoglobin 12.3 g/dL (12.0-15.0); Lymphocyte # 1.55 X10^3/ul (0.83-4.51); Lymphocyte % 23.8 % (19-41); Mean Corp Hgb Conc 28.9 g/dL (32-36); Mean Corpuscular Hgb 25.2 pg (27.0-32.0); Mean Corpuscular Volume 87.1 fL (81-99); Mean Platelet Vol. 9.9 fl (6.2-12.0); Monocyte# 0.51 X10^3/uL; Monocyte% 7.8 % (0-10); NRBC Flagged by Analyzer 0 % (0-5); Neutrophil # 4.16 X10^3/uL (2.7-7.7); Neutrophil % 64.1 % (47-70); Platelet Count 298 K/mm3 (150-450); RBC Distribution Width CV 15.3 % (11.6-14.6); RBC Distribution Width SD 48.5 fl (35.1-43.9); Red Blood Count 4.88 M/mm3 (4.2-5.4); White Blood Count 6.5 K/mm3 (4.4-11.0)
[2022-03-13 12:39] LABS: Microalbumin,Random Urine 44.9 mg/L (NO RANGE EST.); Microalbumin:Creatinine Ratio 22.6 mg/g CRE (<30 mg/g CRE)
[2022-03-13 12:44] LABS: ALB/GLOB Ratio 0.7 RATIO (0.9-2.4); AST(SGOT) 20 U/L (15-37); Alanine Aminotransfer ALT/SGPT 29 U/L (13-56); Albumin, Serum 3.2 g/dL (3.2-5.0); Alkaline Phosphatase 78 U/L (45-117); Anion Gap 5 (5-15); BUN 20 mg/dL (7-18); BUN/Creat Ratio 25.8 RATIO (10-20); Chloride 103 mmol/L (98-107); Cholesterol 183 mg/dL (200); Creatinine, Serum 0.77 mg/dL (0.55-1.02); EST Glomerular Filtration Rate 80 mL/min (>60); Est Glom Filt Rate - Afr Amer 97 mL/min (>60); Globulin 4.5 g/dL (2.2-4.2); Glucose 122 mg/dL (74-106); High Density Lipoprotein 26 mg/dL; Potassium 4.2 mmol/L (3.5-5.1); Protein, Total 7.7 g/dL (6.4-8.2); Sodium Level 140 mmol/L (136-145); Triglycerides 169 mg/dL; Very Low Density Lipoprotein 34 mg/dL (5-40)
== END | disposition home or self-care (01) ==
PROVIDERS: PCP Internal Medicine; Referring Provider Internal Medicine; Visit Provider Internal Medicine
DX: I10 Essential (primary) hypertension (principal); E11.9 Type 2 diabetes mellitus without complications
CPT/HCPCS: 36415; 80053; 80061; 82043; 82570; 85025